=== PATIENT | female | born 1945 | race Caucasian/White ===

== ENCOUNTER 2017-08-01 18:38 | Inpatient (IN) | payer OTHER ==
[~2017-08-01] VITALS: Ht 165.1 cm; Wt 71.7 kg
[~2017-08-01 18:38] MED LIST: AMARYL4 MG PO; AMLODIPINE BESY10 MG PO; ASPIRIN EC325 M1 PO; ASPIRIN325 PO; ATORVASTATIN CA40 MG PO; BIAXIN 500 MG500 M1 PO; BLOOD PRESSURE MED; BUTALB-ACETAMI1 EACH PO; COZAAR 50 MG TA50 M1 PO; CRESTOR10 MG PO; DOCUSATE SODIU100 MG PO; ENOXAPARIN40 MG/0.1 SUBQ; FENOFIBRATE160 MG PO; FEVERALL650 MG RECTAL; FIORICET 50-301 EACH PO; FLORANEX TABLE1 EACH PO; GABAPENTIN 100100 MG PO; GLIPIZIDE 10 MG10 MG PO; GLUCOTROL5 MG PO; HUMALOG100 UNIT/1 SUBQ; JANUMET 50-1,01 EACH PO; LEVEMIR SQ; LEVEMIR100 UNIT/1 SUBQ; LIPITOR20 MG PO; LISINOPRIL20 MG PO; LOPRESSOR25 PO; LOSARTAN POTASS50 MG PO; LOVAZA1000 MG PO; LOW DOSE ASPIRI81 M1 PO; MAGNESIUM400 MG PO; MAGOX 400400 MG PO; MINOCYCLINE HC100 MG PO; MOM PO; NORCO 5-325 TA1 EACH PO; NOVOLOG100 UNIT/1 SC; NOVOLOG100 UNIT/1 SQ; OMEPRAZOLE40 MG PO; PAXIL10 MG PO; PEPCID AC20 M1 PO; PERSANTINE75 MG PO; PLAVIX 75 MG TA75 M1 PO; PROTONIX40 M1 PO; Protonix IV PUSH; SELENIUM100 MCG PO; TRADJENTA5 MG PO; TRILIPIX135 MG PO; TYLENOL325 MG PO; VANCOCIN 250 M250 M1 PO; VITAMIN D3400 UNIT PO; ZETIA10 MG PO
--- NOTE | 2017-08-01 19:00 | NUR ---
RETURNED FROM CT SCAN VIA STRETCHER, VENTILATOR IN USE W/ R.T. ASSIST. PLACED IN E.D. ROOM 1. REPORTED TO ONCOMING LENO PUTNAM.
[2017-08-01 19:01] LABS: ABSOLUTE BASOPHILS 0.1 thou/uL (0.0-0.2); ABSOLUTE EOSINOPHILS 0.3 thou/uL (0.0-0.7); ABSOLUTE LYMPHOCYTES 6.2 thou/uL (0.8-5.3); ABSOLUTE MONOCYTES 0.8 thou/uL (0.0-1.2); ABSOLUTE NEUTROPHILS 4.7 thou/uL (1.6-8.1); BASOPHILS 0.6 %; EOSINOPHILS 2.2 %; HEMATOCRIT 38.3 % (37.0-47.0); HEMOGLOBIN 12.3 gm/dL (12.0-15.0); LYMPHOCYTES 51.5 %; MCV 87.4 fL (80.0-100.0); MONOCYTES 6.6 %; NUCLEATED RBCS 0 /100WBC; PLATELET COUNT* 339 thou/uL (150-400); POLYS 39.1 %; RBC 4.38 mil/uL (4.20-5.00); RDW-CV 13.6 % (10.5-14.5); WBC 12.1 thou/uL (4.0-11.0)
[2017-08-01 19:02] LABS: POC CREATININE 1.6 mg/dL (0.6-1.3); POC HEMOGLOBIN 12.9 g/dL (12.0-17.0); POC POTASSIUM 3.5 mmol/L (3.5-4.9)
[2017-08-01 19:12] LABS: ANION GAP 21 mmol/L (7-16); APTT 42.1 Seconds (25.0-31.3); BUN 30 mg/dL (7-18); CHLORIDE 103 mmol/L (98-107); CO2 16 mmol/L (21-32); CREATININE 1.9 mg/dL (0.6-1.3); GLUCOSE 138 mg/dL (70-99); INR 1.3; POTASSIUM 3.5 mmol/L (3.5-5.1); PROTIME 12.3 Seconds (9.20-11.50); SODIUM 140 mmol/L (136-145)
[2017-08-01 19:26] LABS: URINE BILIRUBIN NEGATIVE (Negative); URINE BLOOD 2+ (Negative); URINE CLARITY CLEAR; URINE COLOR YELLOW; URINE GLUCOSE-RANDOM TRACE (Negative); URINE KETONES NEGATIVE (Negative); URINE LEUKOCYTES-REFLEX NEGATIVE (Negative); URINE NITRITE-REFLEX NEGATIVE (Negative); URINE PROTEIN 3+ (Negative); URINE SPECIFIC GRAVITY >= 1.030 (1.005-1.030); URINE UROBILINOGEN 0.2 E.U./dl (0.2-1.0)
[2017-08-01 19:31] LABS: ALBUMIN 3.3 g/dL (3.4-5.0); ALKALINE PHOSPHATASE 59 U/L (46-116); CK-MB MASS 1.4 ng/mL (<0.5-3.6); NT-PRO BRAIN NAT PEPTIDE 98 pg/mL (<300); SGOT 25 U/L (15-37); SGPT 20 U/L (30-65); TOTAL BILIRUBIN 0.3 mg/dL (<0.1-1.0); TOTAL PROTEIN 7.2 g/dL (6.4-8.2); TROPONIN-I LEVEL <0.06 ng/mL (<0.06)
[2017-08-01 19:36] LABS: AMORPHOUS URATES Few /LPF (None Seen); BACTERIA-REFLEX 1-9 Few /HPF (None Seen); CASTS None Seen /LPF (None Seen); SQUAMOUS 0-3 Few /LPF (0-3); URINE RBC 0-2 Rare /HPF (0-2); URINE WBC-REFLEX None Seen /HPF (0-5)
[2017-08-01 19:53] LABS: BE -6.6 mmol/L (-2 to +3); HCO3 18.5 mmol/L (22.0-26.0); PCO2 35.8 mmHg (35.0-45.0); pH 7.331 (7.340-7.450)
[2017-08-01 19:54] LABS: PO2 290.2 mmHg (75.0-100.0)
--- NOTE | 2017-08-01 19:59 | NUR ---
Casey from ICU here to care for pt, care turned over to her.
--- NOTE | 2017-08-01 21:26 | NUR ---
CONSULTED TO PLACE IJ CENTRAL LINE FOR PT IN ED BED 1. ORDER AND CONSENT NOTED PROCEDURE WELL RISK FOR DVT INFECTION DISCUSSED WTIH (DPOA) WHO VOICED UNDERSTANDING AND AGREED. RIGHT IJ IDENTIFIED AND NOTED TO BE WIDLEY PATENT. TRIPLE LUMAN CENTRAL ROBERTO CATHATER PLACED PER HOSPITAL POLICY INCLUDING MAX BARRIER PRECAUTIONS. LINE ADVANCED TO 18CM AND SECURED. DRESSING APPLIED. STAT CHEST X-RAY ORDERED TO CONFIRM PLACEMENT.
[2017-08-01 21:33] VITALS: BP 110/66
[2017-08-01 22:00] VITALS: BP 121/60
[2017-08-01 23:00] VITALS: BP 136/66
[2017-08-02] VITALS (23 sets, daily range): BP systolic 102–130; BP diastolic 48–65
--- NOTE | 2017-08-02 01:04 | NUR ---
PT. ADMITTED TO ROOM 1 AT 2130 ON VENTILATOR. PROPOFOL GTT FOR SEDATION, RESTRAINTS APPLIED. PT'S SON AND AT BEDSIDE UPON ADMISSION ASSESSMENT. PT. HAS HX CVA X4. CTA HEAD DONE BEFORE ADMISSION TO ICU. CENTRAL LINE PLACED IN ED. OG PLACED, KUB CONFIRMED PLACEMENT. PT AROUSABLE, RESPONDS TO PAIN. SINUS RHYTHM. WILL CONTINUE TO MONITOR.
[2017-08-02] MEDS ORDERED: SYNTHROID25 MCG PO (01:20)
[2017-08-02] MEDS ORDERED: TUMS PO (01:22)
[2017-08-02] MEDS ORDERED: PRAVACHOL20 MG PO (01:24)
[2017-08-02] MEDS ORDERED: ASPIR 8181 MG PO (01:26)
[2017-08-02] MEDS ORDERED: NEURONTIN600 MG PO (01:27)
[2017-08-02] MEDS ORDERED: PRADAXA75 MG PO (01:28)
[2017-08-02 04:03] LABS: HEMATOCRIT 31.9 % (37.0-47.0); HEMOGLOBIN 10.6 gm/dL (12.0-15.0); MCH 28.5 pg (26.0-34.0); MCHC 33.4 g/dL (28.0-37.0); MCV 85.4 fL (80.0-100.0); MPV 9.4 fl. (7.2-11.1); RBC 3.73 mil/uL (4.20-5.00); RDW-CV 13.5 % (10.5-14.5); WBC 10.8 thou/uL (4.0-11.0)
[2017-08-02 04:32] LABS: ALBUMIN 2.9 g/dL (3.4-5.0); CALCIUM 8.7 mg/dL (8.5-10.1); CREATININE 1.9 mg/dL (0.6-1.3); POTASSIUM 3.9 mmol/L (3.5-5.1); TOTAL BILIRUBIN 0.3 mg/dL (<0.1-1.0); TOTAL PROTEIN 6.4 g/dL (6.4-8.2)
[2017-08-02 04:39] LABS: CHOLESTEROL 154 mg/dL (<200); HDL CHOLESTEROL 21 mg/dL (>40); LDL CHOLESTEROL 74 mg/dL (<100); TC:HDL 7.3 Ratio (Not establshd); TRIGLYCERIDE 296 mg/dL (<150); VLDL 59 mg/dL (<40)
[2017-08-02 05:07] LABS: SERUM ASSESSMENT Clear
--- NOTE | 2017-08-02 05:15 | NUR ---
PT. REMAINS SEDATED ON VENTILATOR. NO CHANGE IN STATUS. VITAL SIGNS STABLE, RESTRAINTS REMAIN IN PLACE. CHEST XRAY DONE THIS A.M. PULMONARY AND NEUROLOGY CONSULTED TODAY. NS INFUSING @ 120. PT'S SON HAS BEEN IN WAITING ROOM/AT BEDSIDE THROUGHOUT SHIFT. MRI/MRA ORDERED TODAY. WILL CONTINUE TO MONITOR.
[2017-08-02 08:42] LABS: BE -4.9 mmol/L (-2 to +3); HCO3 17.9 mmol/L (22.0-26.0); PCO2 26.6 mmHg (35.0-45.0); PO2 150.5 mmHg (75.0-100.0); pH 7.446 (7.340-7.450)
--- NOTE | 2017-08-02 14:20 | NUR ---
PT ADMITTED LAST EVENING AFTER BEING FOUND UNRESPONSIVE AT HOME. PT REMAINS SEDATED ON THE VENT. SPOKE WITH PT'S DTR AND ERIK CHAKRABORTY AT BEDSIDE. PT LIVES WITH HER AND HER SON. DUE TO HER MULTIPLE STROKES, THERE IS SOMEONE WITH HER ALL THE TIME. SHE CAN WALK WITH ASSISTANCE BUT THEY DO NOT LET HER UP BY HERSELF SHE FALLS AT HOME. DTR SAID THAT PT'S AND SON TAKE VERY GOOD CARE OF HER AT HOME. COPY OF ADVANCE DIRECTIVE ON [facility], PALMER IS PT'S DPOA. SHE CONFIRMS THAT FOR NOW, PATIENT IS A FULL CODE. PALMER SAID THAT SHE HAS WORKED IN RESP THERAPY IN THE PAST SO UNDERSTANDS WHAT IS CURRENTLY GOING ON WITH PATIENT. DISCUSSED ROLE OF CASE MGT, WILL CONTINUE TO FOLLOW. PALMER LEIVA DPOA [phone]
--- NOTE | 2017-08-02 16:19 | 2DMMODE ---
[place] [address] 2 D/M-MODE ECHOCARDIOGRAM Name: RICK HEREDIA Room: [address] IN [facility]#: [id number] Admission: 08/01/17 Attend Phys: Nicholas Alcaraz, Discharge: Date of : 47 Date of Service: 08/02/17 1619 Report #: [id number] THIS REPORT FOR: //name// APPROVED REPORT Study performed: 08/02/2017 10:27:10 EXAM: Comprehensive 2D, Doppler, and color-flow Echocardiogram Patient Location: In-Patient Room #: [facility] Status: routine BSA: 1.80 HR: 67 bpm BP: 108/51 mmHg Rhythm: NSR Other Information Study Quality: Good Indications CVA/TIA Echo Enhancing Agent Indication: Rule out Shunt Agent(s) / Amount(s) Used: Agitated Saline 10 cc 2D Dimensions LVEF(%): 80.40 (>50%) IVSd: 13.02 (7-11mm) LVOT Diam: 18.67 (18-24mm) LVDd: 31.39 mm PWd: 12.50 (7-11mm) Ascending Ao: 30.48 (22-36mm) LVDs: 16.41 (25-40mm) Aortic Root: 30.41 mm Zeng's LVEF: 80.40 % Volumes Left Atrial Volume (Systole) LA ESV Index: 22.50 mL/m2 Aortic Valve AoV Peak Timothy.: 1.36 m/s AO Peak Gr.: 7.43 mmHg LVOT Max P.38 mmHg AO Mean Gr.: 4.35 mmHg LVOT Mean P.62 mmHg LVOT Max V: 0.92 m/s AO V2 VTI: 27.52 cm LVOT Mean V: 0.58 m/[place] [address] 2 D/M-MODE ECHOCARDIOGRAM Name: RICK HEREDIA Room: [address] IN .R.#: [id number] Admission: 08/01/17 Attend Phys: Nicholas Alcaraz, Discharge: Date of : 47 Date of Service: 08/02/17 1619 Report #: [id number] MARIA ALEJANDRA (VTI): 1.73 cm2 LVOT V1 VTI: 17.36 cm Mitral Valve E/A Ratio: 0.74 MV Decel. Time: 397.81 ms MV E Max Timothy.: 0.61 m/s MV PHT: 115.37 ms MVA (PHT): 1.91 cm2 TDI E/Lateral E': 10.17 E/Medial E': 8.71 Medial E' Timothy.: 0.07 m/s Lateral E' Timothy.: 0.06 m/s Pulmonary Valve PV Peak Timothy.: 1.03 m/s PV Peak Gr.: 4.27 mmHg Left Ventricle The left ventricle is normal size. There is normal LV segmental wall motion. There is normal left ventricular wall thickness. Left ventricular systolic function is normal. The left ventricular ejection fraction is within the normal range. LVEF is 60%. Grade I - abnormal relaxation pattern. Right Ventricle The right ventricle is normal size. The right ventricular systolic function is normal. Atria The left atrium size is normal. Interatrial septum is intact without evidence of ASD or PFO. The right atrium size is normal. Aortic Valve Mild aortic valve sclerosis. No aortic regurgitation is present. No hemodynamically significant valvular aortic stenosis. Mitral Valve There is mitral annular calcification. Mitral valve leaflets are calcified. There is no mitral valve regurgitation noted. No evidence of mitral valve stenosis. Tricuspid Valve The tricuspid valve is normal in structure. There is no tricuspid valve regurgitation [place] [address] 2 D/M-MODE ECHOCARDIOGRAM Name: RICK HEREDIA Room: [address] IN M.R.#: [id number] Admission: 08/01/17 Attend Phys: Nicholas Alcaraz, Discharge: Date of : 47 Date of Service: 08/02/17 1619 Report #: [id number] The pulmonary valve is normal in structure. There is no pulmonic valvular regurgitation. Great Vessels The aortic root is normal in size. IVC is normal in size and collapses with >50% inspiration Pericardium There is no pericardial effusion. <Conclusion> The left ventricle is normal size. There is normal left ventricular wall thickness. Left ventricular systolic function is normal. The left ventricular ejection fraction is within the normal range. LVEF is 60%. Grade I - abnormal relaxation pattern. The right ventricle is normal size. The left atrium size is normal. Mild aortic valve sclerosis. No aortic regurgitation is present. No hemodynamically significant valvular aortic stenosis. There is mitral annular calcification. Mitral valve leaflets are calcified. There is no mitral valve regurgitation noted. No evidence of mitral valve stenosis. The tricuspid valve is normal in structure. IVC is normal in size and collapses with >50% inspiration There is no pericardial effusion. There is normal LV segmental wall motion. <ELECTRONICALLY SIGNED> By: Jez Chiu MD, FACC 08/02/17 1619 1619 161 Jez Chiu MD, FACC /INF
[2017-08-03] VITALS (20 sets, daily range): BP systolic 95–162; BP diastolic 45–81
--- NOTE | 2017-08-03 06:07 | NUR ---
PT. REMAINS ON PROPOFOL GTT, RESTLESS AT TIMES, ATIVAN GIVEN ONCE PER PRN ORDER. CHEST XRAY DONE THIS A.M. SINUS RHYTHM ON MONITOR. COMPLETE BED BATH DONE. PT. APPEARS TO BE RESTING COMFORTABLY AT THIS TIME, WILL CONTINUE TO MONITOR.
[2017-08-03 06:11] LABS: BE -5.6 mmol/L (-2 to +3); HCO3 18.8 mmol/L (22.0-26.0); PCO2 32.5 mmHg (35.0-45.0); pH 7.381 (7.340-7.450)
[2017-08-03 06:14] LABS: PO2 135.6 mmHg (75.0-100.0)
--- NOTE | 2017-08-03 06:15 | EKG ---
[place] [address] ELECTROCARDIOGRAM REPORT Name: RICK HEREDIA Room: [address] ADM IN M.R.#: [id number] Admission: 08/01/17 Attend Phys: Nicholas Alcaraz MD Discharge: Date of : 47 Report #: [id number] THIS REPORT FOR: //name// [facility] ED Test Date: 2017-08-01 Test Time: 19:23:52 Pat Name: RICK HEREDIA Department: Room: [facility] Gender: F Injection Maintenance Technician: GL : 1945 Requested By: Hector Rico Order Number: [id number] MD: Alan Anne Measurements Intervals [place] Rate: 91 P: 74 TX: 225 QRS: 66 QRSD: 96 T: 63 QT: 383 QTc: 472 Interpretive Statements Sinus rhythm Prolonged TX interval Anteroseptal infarct age indeterminate possible Compared to ECG 08/16/2015 08:55:30 First degree AV block now present Electronically Signed On 08-03-2017 6:15:43 [employer]IT [employer]ITY POLICE OFFICER by Alan Anne [email or web address] <ELECTRONICALLY SIGNED> By: Alan Anne MD, FACC 08/03/17 0615 22 22 Alan Anne MD, FAC /EPI
--- NOTE | 2017-08-03 07:16 | CON ---
[address] [address] CONSULTATION Name: RICK HEREDIA Room: [address] ADM IN M.R.#: [id number] Admission: 08/01/17 Attend Phys: Nicholas Alcaraz MD Discharge: Date of : 47 Report #: [id number] THIS REPORT FOR: //name// CC: Nicholas Salazar DO DATE OF SERVICE: 08/02/2017 PULMONARY CONSULTATION ATTENDING PHYSICIAN: Nicholas Alcaraz MD She is in bed 1. She was admitted late yesterday afternoon. INDICATION FOR CONSULTATION: Acute respiratory failure, change in mental status. HISTORY OF PRESENT ILLNESS: The patient is a 72-year-old female, a nonsmoker, nondrinker, who was seen in the Emergency Room Department, was intubated, was unable to give any history, so regular followup with him after the afternoon and after the MRI scan is done and see what further stroke or anatomic abnormalities that were seen on CT head and CT angio of the head. It appeared she had a left frontal, left frontoparietal decreased perfusion and stroke. There was not an exact bleed. I do not think she was given any lytic therapy. The rest of her history was given by her son who was at the bedside today and she states she is a nonsmoker, nondrinker. Has not had any episode like this before in her life. ALLERGIES: CONTRAST DYE, PENICILLIN, SULFA, TAPE AND PROCHLORPERAZINE FROM COMPAZINE. OUTPATIENT MEDICATIONS: Included amlodipine 10 mg daily, clopidogrel bisulphate, Plavix 75 mg daily, Persantin 75 mg t.i.d., ezetimibe 10 mg daily, fenofibrate 160 mg daily, gabapentin 300 mg p.o. t.i.d., Humalog insulin 10 units subQ at bedtime and then 10 units subQ b.i.d. for meals and then 20 units subQ for dinner, lisinopril 20 mg, Zestril 40 mg daily, magnesium oxide 400 mg daily, Vancocin was started for previous possible C. diff diarrhea. OTHER PAST MEDICAL HISTORY: She has had a tonsillectomy, hemorrhoidectomy surgery, hypertension, hyperlipidemia, CVA with aphasia, also diabetes and hiatal hernia. FAMILY HISTORY: Negative for [place] [address] CONSULTATION Name: RICK HEREDIA Room: [address]#: [id number] Admission: 08/01/17 Attend Phys: Nicholas Alcaraz MD Discharge: Date of : 47 Report #: [id number] SOCIAL HISTORY: She is a nonsmoker, nondrinker. PHYSICAL EXAMINATION: GENERAL: This is a dysarthric 72-year-old female, in no acute distress. She was intubated on the ventilator. She is not responsive on very minimal sedation of Versed. She has a poor gag reflex at least at this time. VITAL SIGNS: Blood pressure is 117/57 left arm. No pressors, heart rate 64, respirations 14, backup rate of 14, saturation on 35 is 98% on the ventilator. She is 5 feet 6 inches tall, weight 71 kilograms or 155 pounds, BMI is 26. HEENT: Pupils are midpoint, sluggishly reactive, but they are reactive, very minimal response to tactile stimulus. NECK: Supple without nodes. CHEST: Clear, without wheeze or rhonchi. CARDIOVASCULAR: Regular rate and rhythm without murmur, gallop or rub. ABDOMEN: Soft, without masses or megaly. EXTREMITIES: Without cyanosis, clubbing or edema. NEUROLOGIC: No withdrawal to tactile stimuli. LABORATORY DATA: Today, hemoglobin is 10.6, white count is 10,800, platelets are 271,000. Absolute lymphocytes are 6.2%. Sodium is 134, potassium is 3.9, chloride is 102, BUN is 33, creatinine is 1.9. Previous creatinine was 1.9 yesterday. Albumin is 2.9. Blood sugars have ranged between 150 and 224, AST is normal at 21, ALT is low normal at 18, alk phos is 52. ABGs this morning on 40%, assist control of 14,600 and PEEP of 5 shows a pO2 of 150, pH of 7.44, pCO2 is 26, bicarb is 18 and a sat of 97%. Chest x-ray shows bibasilar atelectasis, not much that we need to check on for that during today and tomorrow. Lines are intact. IMPRESSION: 1. Altered mental status, probably new due to his new stroke or an extension of old stroke in the left frontotemporal parietal area. 2. Acute respiratory failure, altered mental status. PLAN: We will see how she does with the current medication therapy. We will wait for the MRI this afternoon and see if there is any improvement. We could try a T-tube trial either tomorrow or and see how her mental status comes around. I told her son it is somewhat questionable whether she will wake up enough to start doing spontaneous breathing trials and then see where we proceed from there. Prognosis somewhat guarded. We will see what we can do in the meantime to help her out. [address] [address] CONSULTATION Name: RICK HEREDIA Room: [address] ADM IN M.R.#: [id number] Admission: 08/01/17 Attend Phys: Nicholas Alcaraz MD Discharge: Date of : 47 Report #: [id number] Thanks again for allowing us to participate in this lady's care, 34-minute critical care consult. <ELECTRONICALLY SIGNED> By: Cassandra Avila MD 08/03/17 0716 1137 [id number] Guardado MD /nt
--- NOTE | 2017-08-03 07:32 | NUR ---
ASSUMED CARE OF PATIENT AFTER RECEIVING BEDSIDE REPORT. ASSESSMENT COMPLETED, VSS. PATIENT RESPONSIVE TO VOICE AND TOUCH. PATIENT ON PROPOFOL GTT BUT STILL RESPONSIVE. PATIENT DID HAVE SOME RESTLESSNESS SO PROPOFOL WAS TITRATED UP CONSERVATIVELY. NO APPARANT PAIN. CODE STATUS TO BE ADDRESSED WITH FAMILY. VENT WEANING TRIAL TO BE DONE TODAY. RANCH HAND SUPERVISOR IN PLACE, SINUS RHYTHM NOTED. BED ALARM ON. CALL LIGHT WITHIN REACH, USE REINFORCED. RESTRAINTS IN PLACE. WILL CONTINUE TO MONITOR.
[2017-08-03 12:16] LABS: BE -6.6 mmol/L (-2 to +3); HCO3 17.4 mmol/L (22.0-26.0); PCO2 29.3 mmHg (35.0-45.0); pH 7.391 (7.340-7.450)
[2017-08-03 12:20] LABS: PO2 130.4 mmHg (75.0-100.0)
[2017-08-03 18:48] LABS: BE -6.1 mmol/L (-2 to +3); HCO3 17.7 mmol/L (22.0-26.0); PCO2 29.2 mmHg (35.0-45.0)
[2017-08-03 18:51] LABS: PO2 132.1 mmHg (75.0-100.0)
--- NOTE | 2017-08-03 18:53 | NUR ---
PATIENT RESTED IN BED WELL THROUGHOUT SHIFT. PATIENT EXTUBATED TODAY AFTER SUCCESSFUL WEANING TRIAL. PATIENT STILL NOT TALKING MUCH BUT ABLE TO GIVE ONE WORD ANSWERS. PATIENT UNRESTRAINED. PATIENT ABLE TO DO ACTIVE ROM WHEN ENCOURAGED. WILL GIVE BEDSIDE REPORT TO ONCOMING SHIFT.
[2017-08-04] VITALS (18 sets, daily range): BP systolic 125–167; BP diastolic 45–90
[2017-08-04 04:42] LABS: ABSOLUTE BASOPHILS 0.1 thou/uL (0.0-0.2); ABSOLUTE LYMPHOCYTES 2.8 thou/uL (0.8-5.3); ABSOLUTE MONOCYTES 1.1 thou/uL (0.0-1.2); ABSOLUTE NEUTROPHILS 6.7 thou/uL (1.6-8.1); BASOPHILS 0.5 %; EOSINOPHILS 0.1 %; HEMATOCRIT 28.8 % (37.0-47.0); HEMOGLOBIN 9.6 gm/dL (12.0-15.0); MCH 28.1 pg (26.0-34.0); MCHC 33.2 g/dL (28.0-37.0); MCV 84.5 fL (80.0-100.0); MONOCYTES 10.7 %; MPV 9.7 fl. (7.2-11.1); NUCLEATED RBCS 0 /100WBC; PLATELET COUNT* 237 thou/uL (150-400); POLYS 62.7 %; RBC 3.41 mil/uL (4.20-5.00); RDW-CV 13.9 % (10.5-14.5); WBC 10.7 thou/uL (4.0-11.0)
[2017-08-04 05:06] LABS: ALBUMIN 2.8 g/dL (3.4-5.0); CALCIUM 8.3 mg/dL (8.5-10.1); CREATININE 1.5 mg/dL (0.6-1.3); POTASSIUM 3.5 mmol/L (3.5-5.1); TOTAL BILIRUBIN 0.5 mg/dL (<0.1-1.0); TOTAL PROTEIN 6.5 g/dL (6.4-8.2)
--- NOTE | 2017-08-04 05:46 | NUR ---
PATIENT SLOWLY PROGRESSIGN TOWARDS GOALS. HEMODYNAMICALLY STABLE NO ACUTE CHANGES OVER NIGHT. PT ABLE TO FORMULATE SOME WORDS. SCHEDULED SWALLOW STUDY TODAY. RECIEVED ORAL CARE AND Q2H TURNS THROUGH THE SHIFT. WILL CONTINUE TO MONITOR CLOSELY. BED TO LOWEST POSITION.
--- NOTE | 2017-08-04 07:25 | NUR ---
ASSUMED CARE OF PATIENT AFTER RECEIVING BEDSIDE REPORT. ASSESSMENT COMPLETED, VSS. PATIENT ABLE TO VERBALLY COMMUNICATE BETTER TODAY THAN YESTERDAY. PATIENT ABLE TO COMMUNICATE NEEDS BUT NOT ORIENTED. PATIENT RESTING COMFORTABLY IN BED. ROUTE SALES DELIVERY DRIVERS SUPERVISOR IN PLACE, SINUS RHYTHM NOTED. PATIENT GOAL TO TITRATE OFF OF OXYGEN. PATIENT DENIES COMPLAINTS AND CONCERNS AT THIS TIME. BED ALARM ON. CALL LIGHT WTIHIN REACH, USE REINFORCED. WILL CONTINUE TO MONITOR.
--- NOTE | 2017-08-04 11:00 | NUR ---
SPOKE WITH SON MONA AT THE BEDSIDE. MONA LIVES WITH HIS PARENTS, HE AND HIS FATHER PROVIDE 24 HOUR CARE/SUPERVISION FOR PATIENT. SHE IS NEVER LEFT ALONE, MONA SAID IF HE ISN'T THERE THEN PT'S CAN PROVIDE THE ASSISTANCE THAT SHE NEEDS. PER MONA, SHE HAS NO DIFFICULTY IN SWALLOWING OR EATING, SHE CAN WALK BUT THEY DON'T LET HER UP ALONE SHE HAS FALLEN. SHE HAS A WALK-IN SHOWER, NEEDS SOME ASSIST WITH BATHING AND DRESSING. MONA SAID THEY PLAN ON TAKING PT HOME AT DISCHARGE. DISCUSSED ROLE OF CASE MGT, WILL CONTINUE TO FOLLOW.
--- NOTE | 2017-08-04 17:48 | NUR ---
PATIENT DID WELL THROUGHOUT SHIFT. PATIENT SUCCESSFULLY TITRATED OFF OF OXYGEN. PATIENT BECAME ANXIOUS LATER IN THE SHIFT, PRN ATIVAN ORDERED PER DR. GRAFF. PATIENT MORE APHASIC THAN BASELINE PER SON. PATIENT ABLE TO TOLERATE WORKING WITH THERAPIES BUT FAILED SWALLOW STUDY, PATIENT REMAINS NPO AT THIS TIME. BEDSIDE REPORT TO BE GIVEN TO ONCOMING SHIFT.
[2017-08-05] VITALS (11 sets, daily range): BP systolic 118–173; BP diastolic 52–88
[2017-08-05 05:17] LABS: ABSOLUTE BASOPHILS 0.1 thou/uL (0.0-0.2); ABSOLUTE EOSINOPHILS 0.1 thou/uL (0.0-0.7); ABSOLUTE LYMPHOCYTES 2.4 thou/uL (0.8-5.3); ABSOLUTE MONOCYTES 0.8 thou/uL (0.0-1.2); ABSOLUTE NEUTROPHILS 4.3 thou/uL (1.6-8.1); BASOPHILS 0.9 %; EOSINOPHILS 1.5 %; HEMATOCRIT 30.2 % (37.0-47.0); LYMPHOCYTES 31.6 %; MCHC 32.9 g/dL (28.0-37.0); MCV 85.1 fL (80.0-100.0); MONOCYTES 9.9 %; MPV 9.8 fl. (7.2-11.1); NUCLEATED RBCS 0 /100WBC; PLATELET COUNT* 246 thou/uL (150-400); POLYS 56.1 %; RBC 3.55 mil/uL (4.20-5.00); RDW-CV 13.7 % (10.5-14.5); WBC 7.7 thou/uL (4.0-11.0)
[2017-08-05 05:46] LABS: ALBUMIN 2.9 g/dL (3.4-5.0); CALCIUM 9.1 mg/dL (8.5-10.1); CREATININE 1.3 mg/dL (0.6-1.3); MAGNESIUM 1.6 mg/dL (1.8-2.4); POTASSIUM 3.3 mmol/L (3.5-5.1); TOTAL BILIRUBIN 0.5 mg/dL (<0.1-1.0); TOTAL PROTEIN 6.9 g/dL (6.4-8.2)
--- NOTE | 2017-08-05 18:32 | NUR ---
ASSUMED CARE OF PT 1800. PT VITALS ARE STABLE. SUPERVISOR ADVERTISING DISPATCH CLERKS IN PLACE. PT CALM AND COOPERATIVE WITH CALL LIGHT AND PERSONAL BELONGINGS WITHIN REACH. FALL PRECAUTIONS IN PLACE. SEIZURE PRECAUTIONS IN PLACE. FAMILY MEMBER AT BEDSIDE.
--- NOTE | 2017-08-05 19:20 | NUR ---
I ASSUMED CARE OF THE PATIENT AT 0700. SHE IS ALERT AND ORIENTED X2 AND IS ON BEDREST. SHE HAS FLUIDS GOING IN A RIGHT IJ AT 50/HR. BED IS IN THE LOW LOCKED POSITION AND CALL LIGHT IS IN REACH. HOURLY ROUNDING WAS DONE AND PATIENT NEEDS WERE MET. PAIN WAS MANAGED WITH PRN MEDICATIONS. SHE HAS RIGHT SIDED WEAKNESS AND WAS TURNED EVERY 2 HOURS. SON WAS AT THE BEDSIDE MOST OF THE DAY. PATIENT HAD 1400 CC OUTPUT. THERE IS A HEALING PRESSURE ULCER ON THE UPPER LEFT BUTTOCK. SPEECH THERAPY DID ANOTHER SWALLOW STUDY TODAY AND SHE HAS BEEN PLACED ON A REGULAR DIET WITH NECTER THICK LIQUIDS. BLOOD SUGARS WERE CONSISTANTLY OVER 200 AND MODERATE SCALE WAS INITIATED. TPN IS STILL GOING AT 40/HR. PATIENT WAS DOWNGRADED TO TELE STATUS AT 0830 BUT A BED DID NOT OPEN UP UNTIL 1700. REPORT WAS CALLED TO SE[facility]. PATIENT MEDS WERE SENT UP WITH THE CHART.
[2017-08-06] VITALS: BP 128/55
[2017-08-06 04:00] VITALS: BP 133/63
--- NOTE | 2017-08-06 06:02 | NUR ---
PATIENT CONTINUES TOWARDS GOALS TX CONTINUES WITHOUT S/SX OF ADVERSE EFFECTS NOTED THE PATIENT EXPRESSIVE APHASIA CREATES FDIFFICULTY COMMUNICATING HOWEVER WITH SIMPLE YES NO Q&A NEEDS ARE EXPRESSED THE PATIENT APPEARS EXCESSIVELY TEARFUL AT SHIFT START RESPONDS WELL TO WORDS OF REASSURANCE AND COMFORT TOUCH SAFETY INTERVENTIONS CONTINUE SEIZURE PADS ARE IN PLACE REPORT TO BE GIVEN TO ONCOMING RN
[2017-08-06 08:00] VITALS: BP 1550/76
--- NOTE | 2017-08-06 09:00 | NUR ---
ASSUMED PT. CARE AND RECEIVED REPORT AT 0730. PT. AWAKENS EASILY, ORIENTED TO SELF, IS NOT ALWAYS ABLE TO ANSWER QUESTIONS, BUT CAN DO YES/NO QUESTIONS GENERALLY. ON RA @ 95%. FULL ASSESSMENT COMPLETED, REFER TO CHARTING. PT ON TPN @ 80ML/HR, AND IVF'S @ 50ML/HR. PT. SON AT BEDSIDE AND ASSISTING WITH BREAKFAST. CALL LIGHT IN REACH, WILL CONTINUE WITH PLAN OF CARE.
[2017-08-06 14:15] VITALS: BP 149/74
[2017-08-06 16:00] VITALS: BP 146/66
[2017-08-06 20:00] VITALS: BP 132/57
--- NOTE | 2017-08-06 20:02 | NUR ---
PT. STABLE THROUGH OUT SHIFT. ABLE TO FEED SELF LUNCH WITH SIMPLE FINGER FOODS. APPETITE REMAINS POOR WITH <50% OF ANY MEALS EATEN TODAY. SHE IS INTAKING FLUID CONSISTANTLY WITH NECTAR THICK LIQUIDS. UP TO THE RECLINER THIS AFTERNOON WITH PHYSICAL THERAPY AND RN, HAS ENJOYED BEING UP AND STAYED THERE MOST OF THE EVENING WHILE VISITING WITH FAMILY. PT. HAS HAD FAMILY AT BEDSIDE THROUGH OUT THE DAY. HOURLY ROUNDING COMPLETED THROUGH OUT THE DAY FOR PT. SAFETY.
[2017-08-07 00:02] VITALS: BP 151/75
[2017-08-07 04:12] VITALS: BP 142/66
--- NOTE | 2017-08-07 06:07 | NUR ---
PATIENT CONTINUES TOWARDS GOALS OF DISCHARGE TO REHAB; ORDERS OBTAINED DURING SHIFT REGARDING CONTINUED HYPERGLYCEMIA DOCUMENTED TPN CONTINUES TO INFUSE ORDERED LINES AND FILTER CHANGED ORDERED IV ANTICONVULSANT ET IV ABX TOLERATED WELL WITHOUT S/SX OF ADVERSE EFFECT PATIENT CONTINUES TO BE WEAK ON THE R UPPER AND LOWER EXTREMITIY SHE APPEARED TO BE IN A BETTER MOOD NO TEARFUL EPISODES WERE NOTED SMILING AND LAUGHING NOTED EXPRESSIVE APHASIA CONTINUES TO IMPEDE ON ASSERTION OF ORIENTATION PATIENT PARTICIPATES AND COMMUNICATES WITH SIMPLE YES NO APPROPRIATLEY SAFETY INTERVENTIONS CONTINUE SEIZURE PRECAUTIONS CONTINUE REPORT TO BE GIVEN TO ONCOMING RN
--- NOTE | 2017-08-07 09:30 | NUR ---
ASSUMED PT. CARE AND RECEIVED REPORT AT 0730. PT A/O TO SELF/SITUATION, VSS, MONITOR ON TRACING SR 1ST. PT. DENIES CURRENT PAIN/SOB. ON RA. FULL ASSESSMENT COMPLETED, REFER TO CHARTING. DR. GRAFF ON UNIT, DISCUSSED PT. BLOOD SUGARS. OKAY TO DC TPN/IVF'S. PT. APPETITE THIS MORNING APPEARS IMPROVED, ATE ALMOST ALL BREAKFAST. AT BEDSIDE, CALL LIGHT IN REACH, WILL CONTINUE WITH PLAN OF CARE.
[2017-08-07 10:10] LABS: ABSOLUTE BASOPHILS 0.1 thou/uL (0.0-0.2); ABSOLUTE EOSINOPHILS 0.7 thou/uL (0.0-0.7); ABSOLUTE LYMPHOCYTES 2.1 thou/uL (0.8-5.3); ABSOLUTE MONOCYTES 0.9 thou/uL (0.0-1.2); ABSOLUTE NEUTROPHILS 5.7 thou/uL (1.6-8.1); BASOPHILS 1.1 %; EOSINOPHILS 7.6 %; HEMATOCRIT 30.3 % (37.0-47.0); LYMPHOCYTES 21.7 %; MCH 28.3 pg (26.0-34.0); MCHC 32.9 g/dL (28.0-37.0); MCV 86.2 fL (80.0-100.0); MONOCYTES 9.3 %; MPV 9.7 fl. (7.2-11.1); NUCLEATED RBCS 0 /100WBC; PLATELET COUNT* 245 thou/uL (150-400); POLYS 60.3 %; RBC 3.51 mil/uL (4.20-5.00); RDW-CV 13.7 % (10.5-14.5); WBC 9.4 thou/uL (4.0-11.0)
[2017-08-07 10:27] LABS: ALBUMIN 2.7 g/dL (3.4-5.0); CALCIUM 9.1 mg/dL (8.5-10.1); CREATININE 1.3 mg/dL (0.6-1.3); POTASSIUM 4.3 mmol/L (3.5-5.1); TOTAL BILIRUBIN 0.4 mg/dL (<0.1-1.0); TOTAL PROTEIN 6.4 g/dL (6.4-8.2)
[2017-08-07 12:34] VITALS: BP 136/61
[2017-08-07 16:46] VITALS: BP 133/62
--- NOTE | 2017-08-07 19:25 | NUR ---
PT. APPETITE GREATLY IMPROVED, EATING GOOD PORTIONS OF ALL MEALS. UP IN THE RECLINER MOST OF THE DAY, AT BEDSIDE THROUGH OUT. ANTICIPATE DC TOMORROW TO EITHER REHAB OR HOME WITH HH.
[2017-08-07 20:00] VITALS: BP 140/60
--- NOTE | 2017-08-07 20:00 | NUR ---
RECEIVED REPORT AND ASSUMED CARE OF PT, ASSESSMENT COMPLETED. PT SITTING UP IN RECLINER WITH FEET ELEVATED, AT BEDSIDE. PT IS PLEASANT BUT APHASIC. RT ARM FLACCID, HAS A SOFT ROLL IN HER HAND TO KEEP IT OPEN. TELEMETRY ON SHOWING SR. TAKING NECTAR THICK LIQ WITHOUT COUGHING OR CHOKING. WILL CONT TO MONITOR AND ASSIST NEEDED.
[2017-08-08] VITALS: BP 135/49
[2017-08-08 04:00] VITALS: BP 124/59
--- NOTE | 2017-08-08 07:00 | NUR ---
SLEPT WELL TONIGHT. REPOSITIONED Q 2HR. BUTTOCKS SL RED DUE TO SITTING IN RECLINER, BARRIER CREAM APPLIED. TOOK MEDS CRUSHED AND IN APPLESAUCE WITHOUT COUGHING OR CHOKING. NO CHANGE IN ASSESSMENT. ADVANCING TOWARDS DISCHARGE GOALS. HOURLY ROUNDING OBSERVED.
[2017-08-08 08:00] VITALS: BP 129/50
--- NOTE | 2017-08-08 08:05 | NUR ---
ASSUMED PT. CARE AND RECEIVED REPORT AT 0730. PT. SLEEPING PEACEFULLY IN BED, ON RA, VSS, MONITOR ON TRACING SR. ASSESSMENT COMPLETED, REFER TO CHARTING. PT. OPENS EYES AND SMILES WHEN ADDRESSED, BUT FALLS RIGHT BACK TO SLEEP. PT. POSITIONED ON SIDE, RIGHT ARM ELEVATED ON PILLOW. CALL LIGHT IN REACH, FALL PRECUATIONS IN PLACE. WILL CONTINUE WITH PLAN OF CARE.
--- NOTE | 2017-08-08 10:29 | NUR ---
Rehab consult placed. If Pt does not qualify for rehab, family declines skilled and wants to take Pt home with HH. Following.
[2017-08-08 16:01] VITALS: BP 127/53
--- NOTE | 2017-08-08 17:24 | NUR ---
RECEIVED CONSULT FOR POSSIBLE REHAB ADMISSION. CONSULT HAS BEEN ACKNOWLEDGED BY COUNTER CONTROL OPERATOR AND DR. ROYAL. PT ADMITTED WITH SEIZURE, ENCEPHALOPATHY AND PROBABLE NEW STROKE. PT HAS HX OF CVA'S AND IS APHASIC. PLOF WAS HOME WITH FAMILY PT WAS ABLE TO AMBULATE AND DID RECEIVE SOME ASSIST FROM SPOUSE AND SON WITH ADL'S. PT HAS BEEN EVALUATED BY PT/OT/ST AND WOULD BENEFIT FROM ACUTE REHAB TO BE ABLE TO RETURN HOME TO [facility] WITH FAMILY. HAVE REQUESTED INSURANCE AUTHORIZATION. NOTIFIED CM, WONG OF ACCEPTANCE TO REHAB PENDING INSURANCE AUTH. THANK YOU FOR THIS REFERRAL.
--- NOTE | 2017-08-08 19:15 | NUR ---
PT. STABLE THROUGH OUT SHIFT. UP TO CHAIR X 2. RAMIREZ REMOVED AND PT. ABLE TO VOID WITHOUT DIFFICULTY. CENTRAL LINE DRESSING CHANGED PER PROTOCOL. PT. APPETITE APPEARS TO BE BACK AT BASELINE, EATING 100% OF MEALS. CONTINUES ON NECTAR THICK LIQUIDS PER SPEECH EVAL TODAY. ANTICIPATE DC TO REHAB TOMORROW. FAMILY AT BEDSIDE THROUGH OUT THE DAY. HOURLY ROUNDING COMPLETED FOR PT. SAFETY.
[2017-08-08 20:00] VITALS: BP 129/57
--- NOTE | 2017-08-08 20:00 | NUR ---
RECEIVED REPORT AND ASSUMED CARE OF PT, ASSESSMENT COMPLETED. ASSISTED PT FROM CHAIR TO BED. TRANSFERS IMPROVED FROM PREVIOUS NIGHT BUT REMAINS WEAK AND UNABLE TO MOVE WITHOUT VERBAL CUES. INCONT OF URINE. WILL CONT TO MONITOR AND ASSIST NEEDED.
[2017-08-09 04:00] VITALS: BP 99/53
--- NOTE | 2017-08-09 06:30 | NUR ---
SLEPT WELL TONIGHT. TURNED Q 2HR FROM SIDE TO SIDE. TOOK MEDS WHOLE IN APPLESAUCE, DID POCKET SOME INTO LT CHEEK. INFORMED TO SWALLOW AND PT DID SO WASHING DOWN PILLS. NO CHOKING OR COUGHING WITH FLUIDS OR MEDS. INCONT OF URINE. HAD SM LOOSE STOOL WITH MOM GIVEN. NO COMPLAINTS VOICED. ADVANCING TOWARDS GOALS. HOURLY ROUNDING OBSERVED.
--- NOTE | 2017-08-09 07:30 | NUR ---
ASSUMED CARE OF PT ASSESSED AND DOCUMENTED. PT IS A MED SURG PT. PT IS AFEBRILE. SHE DID STATE HER FIRST NAME AND PART OF HER BIRTHDAY. PT IS APHASIC. PT IS ON ROOM AIR. LUNGS ARE DIMINISHED. PT HAS REDNESS NOTED ON HER COCCYX. SHE HAS BEEN TURNED AND REPOSITIONED. CALLED PHARMACY AND ORDERED NEW INSULLIN FROM . PT HAS WEAKNESS ON HER R LEG AND R ARM IS FLACID. BED IS IN LOW POSITIOIN. CALL LIGHT IS IN REACH. .
[2017-08-09 08:00] VITALS: BP 151/68
--- NOTE | 2017-08-09 11:29 | NUR ---
Nutrition follow up: Admit for CVA. TPN dc'd. Pt now on Regular diet/nectar thick liquids. ST following. Nursing reports pt is eating 100% at meals. Varied wt this admit 149-167#, current wt 158# close to admit wt 157#. BL nonpitting edema present. Noted pt is likely to discharge to Med Rehab today. RD will continue to follow for adequate intake on Med Rehab and make additional recs as appropriate.
--- NOTE | 2017-08-09 12:18 | NUR ---
Insurance authorized Pt's rehab stay, anticipate Pt to dc to rehab today around 2pm. Faxed dc orders. Updated Pt's nurse and son in room.
[2017-08-09] MEDS ORDERED: KEPPRA 500 MG500 M1 PO (12:43)
[2017-08-09] MEDS ORDERED: LEVAQUIN 250 M250 MG PO (12:44)
[2017-08-09 12:54] VITALS: BP 151/68
--- NOTE | 2017-08-09 14:06 | NUR ---
PT D/C'D TO REHAB. CALLED IN REPORT TO LENO RANDALL. ALL BELONGINGS PACKED UP AND LEFT WITH PT ACCOMPANIED BY STAFF AND PT'S SON.
--- NOTE | 2017-08-11 11:51 | CON ---
[address] [address] CONSULTATION Name: CORINNE HEREDIAANN Room: [address] IN M.R.#: [id number] Admission: 08/01/17 Attend Phys: Nicholas Alcaraz MD Discharge: 08/09/17 Date of : 47 Report #: [id number] THIS REPORT FOR: //name// CC: Nicholas Aguilar [facility] DATE OF SERVICE: 08/02/2017 HISTORY OF PRESENT ILLNESS: This is a 72-year-old female patient who was admitted with an episode she had. History is taken from the son on multiple occasions. This patient has a large record in the hospital and I reviewed those records. This patient has been mostly managed at [facility]. Apparently, this patient had numerous strokes. Reviewing the record, it would appear that I had seen this patient. Those records indicate that I had suspected vasculitis at that time or at least had suggested that we workup this patient for vasculitis, but the family has decided that they do not want any further workup and they were pretty adamant about it and I did not proceed with that workup. It looks like she is having more stroke or she has developed seizure. From the son, it will look that she has episodes where she is having transient symptoms on the right side. This is going on for some time. REVIEW OF SYSTEMS: Indicate that she does have intracranial disease. She does have a vascular risk factor. She usually goes to [facility]. From all indication, it looks like she has either recurrent TIA or seizures. Her quality of life is poor. She is hemiplegic. She needs 24-hour care. She is aphasic. Son tells me at one time she has told that she wanted to be no code, but I told him presently she is full code. PAST MEDICAL HISTORY: Positive for recurrent stroke. FAMILY HISTORY: Negative for any seizure activity. SOCIAL HISTORY: She requires full 24-hour supervision. PHYSICAL EXAMINATION: Pretty limited. She is sedated, but even when I lower the sedation she is completely hemiplegic on right side. She has very little speech even at her baseline. She does not follow any commands. I had a long and multiple talks with the patient's family. I told them that instructions to me was that they do not want any further workup. If they want to stick with the same protocol, that is fine with me. If they want to pursue further, then I will suggest doing an MRI, which was ordered by Dr. Salazar and I will add an MRA at the same time. I frankly discussed with them that taking her down for MRI is not a risk-free thing. It can have significant risk and they must be willing to accept that risk. I discussed with them that if they want her to be no code blue, they need to tell the nurses [place] [address] CONSULTATION Name: RICK HEREDIA Room: [address] IN ..#: [id number] Admission: 08/01/17 Attend Phys: Nicholas Alcaraz MD Discharge: 08/09/17 Date of : 47 Report #: [id number] be a no code blue and the nurses need to get that ordered from the admitting physician. I talked to them to decide if they want her to be no code blue before or after the MRI or what time they want to. My feeling is that this patient may have had another stroke or may be having recurrent seizure. If MRI does not show any new stroke, then we can treat presumptively with anticonvulsant and see if she becomes better. If it shows stroke, then family need to decide if they want to be aggressive in this patient or want her to be hospice. Thank you very much for this referral. More than 50 minutes of time was spent taking care of this patient today and majority of that time was spent counseling this patient's family and coordinating her care. The patient was discussed with the nurses and was also discussed with admitting physician. <ELECTRONICALLY SIGNED> By: Dashawn Rivera MD 08/11/17 1151 [id number] Rivera MD /nt
--- NOTE | 2017-08-11 11:51 | EEG ---
[address] [address] EEG STUDY REPORT Name: RICK HEREDIA Room: [address] IN M.R.#: [id number] Admission: 08/01/17 Attend Phys: Nicholas Alcaraz MD Discharge: 08/09/17 Date of : 47 Report #: [id number] THIS REPORT FOR: //name// CC: Nicholas Aguilar [facility] DATE OF SERVICE: 08/02/2017 INDICATION FOR PROCEDURE: This patient is being evaluated for altered mental status. INTERPRETATION: EEG was done by placing the electrodes by standard 10-20 system of electrode placement. Background activity is only about 4-5 Hz, is a very poorly formed background activity. Photic stimulation is unremarkable. Throughout the record, no active epileptiform activity was noticed. IMPRESSION: This is a severely abnormal electroencephalogram because it is disorganized and poorly formed. That is a nonspecific abnormality, which can occur with encephalopathy, effect of psychotropic medication, dementia, etc. Clinical correlation is recommended. <ELECTRONICALLY SIGNED> By: Dashawn Rivera MD 08/11/17 1151 [id number] Rivera MD /nt
--- NOTE | 2017-08-30 14:42 | CON ---
[address] [address] CONSULTATION Name: CORINNE HEREDIAANN Room: [address] IN M.R.#: [id number] Admission: 08/01/17 Attend Phys: Nicholas Alcaraz MD Discharge: 08/09/17 Date of : 47 Report #: [id number] THIS REPORT FOR: //name// CC: Nicholas Aguilar [facility] REASON FOR CONSULTATION: Evaluation and recommendations regarding post-acute rehabilitation in a female who was admitted on 08/01 with diagnosis of seizure, encephalopathy, aspiration pneumonia, history of previous multiple cerebrovascular accidents with ongoing aphasia, dysphagia and acute respiratory failure, status post intubation and ventilation. She is also diabetic. She has chronic kidney disease as well. She has been followed by Neurology. She does have needs in physical and occupational therapy as well as speech and language pathology. She is moderate assistance of 1-2 with occupational therapies, moderate to maximum assistance with physical therapies. She is currently on nectar thick liquids and a regular diet being followed by Speech Language Pathology as well for her aphasia. She is known to this service from previous acute inpatient rehabilitative stay a couple of years ago. EEG by Dr. Rivera was done and was severely abnormal. She is encephalopathic and does have some possible dementia. She is cared for at the home setting at a minimum level of assistance with her and her children. ALLERGIES: CONTRAST DYE, PENICILLIN, SULFA AND TAPE. MEDICAL PROBLEMS: Include previous history of stroke; diabetes, uncontrolled; hiatal hernia; tonsillectomy; hemorrhoidectomy; hypertension; hyperlipidemia; history of cerebrovascular accident with aphasia and dysphagia. FAMILY HISTORY: Stroke. SOCIAL HISTORY: No tobacco, alcohol or illicit drug use. REVIEW OF SYSTEMS: Unable to obtain at this time due to the patient's current state. PHYSICAL EXAMINATION: GENERAL: Alert, no apparent distress. VITAL SIGNS: Reviewed and are stable. HEENT: Head atraumatic, normocephalic. Pupils equal, round, reactive. ABDOMEN: Soft, nontender, nondistended. NEUROLOGIC: Cranial nerves 2-12 are grossly intact. SKIN: Warm and dry. ASSESSMENT: Status post recent seizure, encephalopathy, acute aspiration pneumonia, history of cerebrovascular accident with aphasia, dysphagia and increased residuals due to current medical state. Acute respiratory failure, uncontrolled diabetes [place] 2[place] [address] CONSULTATION Name: RICK HEREDIA Room: [address] IN [facility].#: [id number] Admission: 08/01/17 Attend Phys: Nicholas Alcaraz MD Discharge: 08/09/17 Date of : 47 Report #: [id number] PLAN: Recommend acute inpatient rehabilitation with physical and occupational therapy to get the patient back to her baseline. She also needs some family training. Speech and Language Pathology will continue to work with the patient, both from a swallow standpoint as well as memory, cognition and aphasia standpoint. Will require acute daily medical care as well. We will follow along with the patient during her acute medical stay. <ELECTRONICALLY SIGNED> By: Anne Rush DO 08/30/17 1442 [id number] [id number] Rush DO /nt
== END 2017-08-09 14:02 | DRG 208 ==
LOC: M.ERS 18:38 → M.ICU 20:01 → M.TBA-ER 20:01 → M.ICU 21:34 → M.2W 08-05 18:05
PROVIDERS: Emergency Medicine; Emergency Medicine Emergency Medical Services; Internal Medicine Pulmonary Disease; ADMIT Internal Medicine
PROC: 0BH17EZ Insertion of Endotracheal Airway into Trachea, Via Natural or Artificial Opening (ICD-10-PCS; principal; 2017-08-01)
PROC: 5A1945Z Respiratory Ventilation, 24-96 Consecutive Hours (ICD-10-PCS; principal; 2017-08-01)
PROC: 4A00X4Z Measurement of Central Nervous Electrical Activity, External Approach (ICD-10-PCS; 2017-08-02)
PROC: B24BZZ4 Ultrasonography of Heart with Aorta, Transesophageal (ICD-10-PCS; 2017-08-02)
DX: J69.0 Pneumonitis due to inhalation of food and vomit (principal); J96.00 Acute respiratory failure, unspecified whether with hypoxia or hypercapnia; G93.40 Encephalopathy, unspecified; N17.9 Acute kidney failure, unspecified; G81.91 Hemiplegia, unspecified affecting right dominant side; E78.5 Hyperlipidemia, unspecified; R56.9 Unspecified convulsions; E11.22 Type 2 diabetes mellitus with diabetic chronic kidney disease; E11.65 Type 2 diabetes mellitus with hyperglycemia; I12.9 Hypertensive chronic kidney disease with stage 1 through stage 4 chronic kidney disease, or unspecified chronic kidney disease; N18.9 Chronic kidney disease, unspecified; I69.320 Aphasia following cerebral infarction; Z79.02 Long term (current) use of antithrombotics/antiplatelets; Z79.4 Long term (current) use of insulin; Z79.899 Other long term (current) drug therapy; Z91.041 Radiographic dye allergy status; Z88.0 Allergy status to penicillin; Z88.2 Allergy status to sulfonamides; Z88.8 Allergy status to other drugs, medicaments and biological substances; Z91.048 Other nonmedicinal substance allergy status; Z82.3 Family history of stroke

== ENCOUNTER 2017-08-09 12:51 | Inpatient (IN) | payer OTHER ==
[~2017-08-09] VITALS: Ht 165.1 cm; Wt 68.5 kg
[~2017-08-09 12:51] MED LIST changes: +ASPIR 8181 MG PO; +KEPPRA 500 MG500 M1 PO; +LEVAQUIN 250 M250 MG PO; +NEURONTIN600 MG PO; +PRADAXA75 MG PO; +PRAVACHOL20 MG PO; +SYNTHROID25 MCG PO; +TUMS PO
[2017-08-09 15:00] VITALS: BP 108/55
--- NOTE | 2017-08-09 16:58 | NUR ---
ASSUMMED CARE OF PT ON ADMISSION TO UNIT AT 1415. PT OPENS EYES BUT VERY LETHARGIC, DOES FOLLOW SOME COMMANDS, SON STATES PT HAD JUST RECIEVED PAIN MEDICATION, PT DID BECOME MORE AWAKE SHIFT PROGRESSED, PT APHASIC BUT DID ANSWER WITH 1-2 WORDS AT TIMES, PT INCONTINENT OF LARGE AMOUNT OF URINE, PT TAKING NECTAR THICK LIQUIDS, SON USING SWABS TO MOISTEN PT MOUTH, SON INSTRUCTED THAT PT CAN NOT HAVE REGULAR WATER, SON STATES THAT SHE CAN TOLERATE WATER, SON AGAIN INSTRUCTED ON IMPORTANCE OF PT ONLY HAVING THICKENED LIQUIDS, PT TURNED EVERY 2 HOURS, SMALL RED AREAS NOTED ON SACRAL AREA, ESTELA CARE GIVEN BARRIER OINTMENT APPLIED, PT AND FAMILY ORINETED TO ROOM, QUESTIONS ANSWERED, ASSESSMENT COMPLETEM HOURLY ROUNDING DONE, WILL CONTINUE TO MONITER.
[2017-08-09 19:38] VITALS: BP 131/59
[2017-08-10 03:51] LABS: ABSOLUTE BASOPHILS 0.1 thou/uL (0.0-0.2); ABSOLUTE EOSINOPHILS 0.6 thou/uL (0.0-0.7); ABSOLUTE LYMPHOCYTES 3.3 thou/uL (0.8-5.3); ABSOLUTE NEUTROPHILS 4.5 thou/uL (1.6-8.1); BASOPHILS 0.9 %; EOSINOPHILS 6.1 %; HEMATOCRIT 29.4 % (37.0-47.0); HEMOGLOBIN 9.8 gm/dL (12.0-15.0); LYMPHOCYTES 35.1 %; MCH 28.6 pg (26.0-34.0); MCHC 33.3 g/dL (28.0-37.0); MCV 85.9 fL (80.0-100.0); MONOCYTES 10.1 %; MPV 9.4 fl. (7.2-11.1); NUCLEATED RBCS 0 /100WBC; PLATELET COUNT* 268 thou/uL (150-400); POLYS 47.8 %; RBC 3.43 mil/uL (4.20-5.00); RDW-CV 13.9 % (10.5-14.5); WBC 9.4 thou/uL (4.0-11.0)
--- NOTE | 2017-08-10 05:38 | NUR ---
ASSUMED PT CARE AT 1930. PT AWAKE AND ALERT, GIVES ONE WORD ANSWERS TO QUESTIONS. TAKES PILLS CRUSHED IN APPLESAUCE FOLLOWED BY NECTAR THICKENED LIQUIDS. DENIES PAIN. PT INCONTINENT OF BOWEL AND BLADDER X3 THIS SHIFT. TURNED Q2-3 OVERNIGHT. SMALL RED AREAS ON SACRAL AREA, BARRIER OINTMENT APPLIED FOLLOWING ESTELA CARE. SEIZURE PRECAUTIONS IN PLACE. HX OF MULTIPLE CVA'S. CALL LIGHT AND FREQUENTLY USED ITEMS WITHIN REACH. HOURLY ROUNDING IN PROGRESS, WILL CONTINUE TO MONITOR.
[2017-08-10 06:02] LABS: CREATININE 1.8 mg/dL (0.6-1.3); POTASSIUM 4.4 mmol/L (3.5-5.1)
[2017-08-10 08:41] VITALS: BP 129/57
--- NOTE | 2017-08-10 15:04 | NUR ---
Pt was seen d/t new admit to rehab consult. Pt was admitted for CVA. Pt was able to answer with one word answers. Pt reports an okay appetite. Pt was eating 100% prior to rehab admission per RN note. Pt reports tolerating the thickened liquids. Pt wt has been varied between 149#-167#. Pt currently 164#. Pt reports eating enough. Pt is currently on regular diet. Note pt DM II. RD talked to RN about switching diet to carb controlled d/t BG 116-407. Chart Reviewed. Low nutrition risk.
--- NOTE | 2017-08-10 15:26 | NUR ---
I have reviewed the documentation by JASEN ENGLISH from 08/10/17 to 08/10/17 and I concur with it. BILL LUGO
--- NOTE | 2017-08-10 15:55 | NUR ---
I have reviewed the documentation by JASEN ENGLISH from 08/10/17 to 08/10/17 and I concur with it. BILL LUGO
--- NOTE | 2017-08-10 16:10 | NUR ---
ASSUMED CARE AT 0730 PATIENT ALERT/APHASIC, MAKES BASIC NEEDS KNOWN, UP WITH MAX ASSIST OF ONE TO W/C. NO COMPLAINTS OF PAIN THIS SHIFT, PARTICIPATED IN ALL THERAPIES TODAY, TO DINING ROOM FOR MEALS. HOURLY ROUNDING COMPLETED, BED/CHAIR ALARMS IN PLACE, CALL LIGHT IN REACH, TURN 2Q WHILE IN BED.
--- NOTE | 2017-08-10 17:22 | NUR ---
SW met with pt to complete initial assessment and review team conference summary. Pt sleeping upon SW arrival. Pt opened eyes briefly but did not communicate with SW. SW called to speak with pt son and he did not answer, also, voicemail box was full. Plan to reteam. Pt lives at home with family care. Rehab goal to be able to return to baseline and for family training prior to dc. Apparently pt has RW but pt has refused to use RW. SW to continue to follow to assist with safe dc planning and follow up as necessary.
[2017-08-10 20:27] VITALS: BP 146/58
--- NOTE | 2017-08-11 01:35 | NUR ---
ASSUMED CARE @ 1939-08/10-TUE.AWAKE IN BED ON HER LEFT SIDE W/ HOB UP.SIDERAILS X4-PADDED.BED ALARM ALREADY ON @ 1939.PLACED ON HER Back w/HOB UP @ 2139 TO TAKE HS MEDS CRUSHED & MIXED W/ APPLE SAUCE FOLLOW W/ NECTAR THICK CRANBERRY JUICE.SEE POSITION CHANGE CHARTING.WEDGES PLACED FOR TURNING.HEELS OFF BED @ 2209.AWAKENED ONLY TO TURN.FLACCID-RUE/WEAK-RIGHT LE/APHASIA/W/ DYSPHAGIA. ON HOURLY ROUNDS.VEHICLE MODIFICATION TECHNICIAN DOING ODD HOUR ROUNDS.
--- NOTE | 2017-08-11 05:22 | NUR ---
SLEEPING SINCE -08/11-TUESDAY.INC URINE X2.URINE ACCIDENT X2.ESTELA CARE DONE X2.MOISTURE BARRIER CREAM APPLIED X2 TO PINK/RED BUTTOCKS.TOOK ALL APPLE SAUCE W/ NECTAR THICK CRANBERRY JUICE W/ HS MEDS.
[2017-08-11 07:51] VITALS: BP 149/63
--- NOTE | 2017-08-11 15:37 | NUR ---
I have reviewed the documentation by JASEN ENGLISH from 08/11/17 to 08/11/17 and I concur with it. BILL LUGO
--- NOTE | 2017-08-11 16:44 | NUR ---
ASSUMED CARE AT 0730 PATIENT ALERT/ORIENTED, RESISTANT TO THERAPY THIS AM, SON IN AND ENCOURAGED PATIENT, THERAPY WAS ABLE TO WORK WITH PATIENT, STILL RESISTANT, NEW MEDS STARTED THIS AFTERNOON, PAIN MED GIVEN THIS AM FOR GENERAL DISCOMFORT, UP WITH MAX OF ONE AND GAIT BELT TO W/C. HOURLY ROUNDING COMPLETED, BED/CHAIR ALARMS IN PLACE, TO DINING ROOM FOR MEALS. CALL LIGHT IN REACH. UPGRADED TO THIN LIQUIDS AND MEDS WHOLE IN APPLESAUCE WITH NO FURTHER COMPLICATIONS.
[2017-08-11 19:30] VITALS: BP 143/70
--- NOTE | 2017-08-12 01:01 | NUR ---
ASSUMED CARE @ 1919-08/11-THUIRS.AWAKE IN BED ON HER BACK W/HOB UP ALMOST 90 DEGREES. VISITING @ THIS TIME.PRADAXA-HOME MED WILL BE AVAILABLE ON TUESDAY-PER .HOSPITAL PHARMACY UNABLE TO GET PRADAXA.RUE UP ON A PILLOW.BED ALARM PUT ON @ 1919.SIDERAILS X4-PADDED.EDEMA-RIGHT FINGERS.HEELS OFF BED @ 1929.SEIZURE PRECAUTIONS.TAKES ALL MEDS WHOLE ONE @ A TIME W/ APPLE SAUCE FOLLOWED W APPLE JUICE @ 2099.NO SWALLOWING PROBLEM NOTED. PULL UPS OFF @ 2099.POSITIONONG WEDGES USED.SPEECH-STILL SLURRED.FLACCID-RUE. WEAK-RLE.SEE POSITION CHANGE CHARTING.ON HOURLY ROUNDS.
--- NOTE | 2017-08-12 05:15 | NUR ---
SLEEPING SINCE 2200.INC.URINE X1.URINE ACCIDENT X1.ESTELA CARE AFTER INC URINE & MOISTURE BARRIER CREAM APPLIED TO PINK/RED BUTTOCKS.TOOK ALL APPLE SAUCE W/HS MEDS W/ APPLE JUICE.AWAKENED ONLY TO TURN & TO CHECK IF INC.URINE.
[2017-08-12 07:30] VITALS: BP 133/63
--- NOTE | 2017-08-12 13:31 | NUR ---
I have reviewed the documentation by JASEN ENGLISH from 08/12/17 to 08/12/17 and I concur with it. BILL LUGO
--- NOTE | 2017-08-12 18:09 | NUR ---
ASSUMED CARE AT 0730. ALERT ORIENTED, PLEASANT COOPERATIVE. HX OF CVA RT. SIDE WEAKNESS. TRANSFERS WITH 1 PERSON G BELT GRAB BAR IN TOILET TO VOID AND HAVE BM. NEEDS ASSIST WITH HYGEINE AFTER BM BUT DOES HELP WITH CLOTHING ADJUSTMENTS. PARTICIPATING IN THERAPIES THROUGHOUT THE MORNING. DENIES PAIN OR REQUESTS. BED CHAIR ALARM FOR PT. SAFETY. FORGETFULL SAFETY CUES NEEDED.
--- NOTE | 2017-08-12 18:23 | NUR ---
FEEDS SELF WITH SET UP. NO DIFFICULTY TAKING MEDS USES APPLESAUCE TAKES THEM WHOLE. HERE THIS EVENING AT SUPPER.
[2017-08-12 19:50] VITALS: BP 146/68
--- NOTE | 2017-08-12 21:05 | NUR ---
SITTING UP IN W/C WATCHING TV. EXPRESSIVE APHASIA. MAKES NEEDS KNOWN WITH MULTIPLE ATTEMPTS. TRANSFERS FROM W/C TO TOILET WITH ASSIST OF 2, GAITBELT, STAND, PIVOT, LIFTING ASSIST. ESTELA CARE AND CLOTHING ADJUSTMENTS COMPLETED BY STAFF. TOOK MEDS WHOLE WATER WITH MILD DIFFICULTY. DENIES DISCOMFORT.
[2017-08-13 04:44] LABS: HEMATOCRIT 30.2 % (37.0-47.0); MCH 28.4 pg (26.0-34.0); MCHC 33.2 g/dL (28.0-37.0); MCV 85.5 fL (80.0-100.0); MPV 9.8 fl. (7.2-11.1); RBC 3.53 mil/uL (4.20-5.00); RDW-CV 13.5 % (10.5-14.5); WBC 8.7 thou/uL (4.0-11.0)
[2017-08-13 05:01] LABS: ALBUMIN 2.8 g/dL (3.4-5.0); CREATININE 1.5 mg/dL (0.6-1.3); MAGNESIUM 1.7 mg/dL (1.8-2.4); POTASSIUM 4.2 mmol/L (3.5-5.1); TOTAL BILIRUBIN 0.3 mg/dL (<0.1-1.0); TOTAL PROTEIN 5.7 g/dL (6.4-8.2)
--- NOTE | 2017-08-13 05:46 | NUR ---
RESTED QUIETLY IN BETWEEN TURNS. NO COMPLAINTS VOICED. HOURLY ROUNDING IN PROGRESS.
[2017-08-13 08:10] VITALS: BP 112/51
--- NOTE | 2017-08-13 17:50 | NUR ---
PT HAS PARTICIPATED WITH THERAPIES AND HAS CALLED FOR ASSIST WITH TRANSFERRS TO CHAIR AND TOILET. PT HAS EPISODE OF INC X1 WITH PERICARE GIVEN AND BARRIER CREAM APPLIED. PT APPROPIATE WITH RESPONCES BUT IS APHASIC AND ABLE TO MAKE MOST NEEDS KNOWN. PT TOLERATES MEALS IN DINNINGROOM AND IS REMINDED TO NOT POCKET FOODS AND TAKE DRINK AFTER EACH BITE. HERE NOW. PT PROGRESSES TOWARDS GOALS AND HOURLY ROUNDING CONTINUES.
[2017-08-13 19:55] VITALS: BP 123/63
--- NOTE | 2017-08-13 21:05 | NUR ---
AWAKENED FOR HS REASSESSMENT AND MED PASS. MALE FAMILY MEMBER AT BEDSIDE IN RECLINER AND IS STAYING THE NIGHT. TOOK MEDS WHOLE ONE AT A TIME WITH APPLESAUCE. DENIES PAIN. INCONTINENT OF URINE. ESTELA CARE PROVIDED. ASSISTED WITH REPOSITIONING. RIGHT ARM FLACCID AND ELEVATED ON A PILLOW. BOGGY HEELS ELEVATED ON A PILLOW.
--- NOTE | 2017-08-14 05:23 | NUR ---
RESTED QUIETLY IN BETWEEN TURNS. INCONTINENT OF URINE X ONE DURING THE NIGHT. ESTELA CARE PROVIDED. NO COMPLAINTS VOICED. HOURLY ROUNDING IN PROGRESS.
[2017-08-14 07:57] VITALS: BP 123/54
--- NOTE | 2017-08-14 16:51 | NUR ---
PT HAS BEEN UP TO W/C AND RESTED IN BED THIS AFTERNOON WITH AT SIDE. PT ALERT AND SEEMS TO UNDERSTAND SIMPLE CONVERSATIONS WITH GOOD HUMOR. PT TRANSFERRS WELL WITH 1 ASSIST TO W/C AND TOILET UNLESS TIRED. PT USUALLY CONTINENT WHEN UP BUT WAS INB OF B+B THIS AM WHEN GETTING UP AND HAD SECOND BM WHEN PLACED ON TOILET. PT ASSISTED WITH 75% OF DRESSING AND ADJUSTING CLOTHING AND CLEANSING. PT DENIES PAIN. PT PROGRESSES TOWARDS GOALS AND HOURLY ROUNDING CONTINUES.
--- NOTE | 2017-08-14 19:50 | NUR ---
RESTING QUIETLY IN BED. AT BEDSIDE. PT DENIES PAIN. DECLINED OFFER OF A SNACK. TOOK MEDS WHOLE ONE AT A TIME WITH APPLESAUCE.
[2017-08-14 20:13] VITALS: BP 125/52
--- NOTE | 2017-08-15 05:37 | NUR ---
RESTED QUIETLY. NO COMPLAINTS VOICED. INCONTINENT OF URINE X ONE. ESTELA CARE PROVIDED. HOURLY ROUNDING IN PROGRESS.
[2017-08-15 08:07] VITALS: BP 126/64
--- NOTE | 2017-08-15 16:53 | NUR ---
PTHAS PARTICIPATED WITH THERAPIES AND TRANSFERRS WITH MOD ASSIST OF 1 WITH GAITBELT.PT HAS REMAINED CONTINENT TODAY AND IS TAKEN TO THE BATHROOM Q2 HOURS. PRN FOR HEADACHES AND RT.ARM PAIN GIVEN WITH GOOD EFFECT. PT HAS LARGE BM THIS MORNING ON TOILET. PT TOLERATES MEALS AND FEEDS SELF AFTER TRAY SETUP AND ITEMS PLACED IN REACH.PT ON ACCUCHECKS AND SON HAS WRITTEN SLIDING SCALE AMOUNTS OUT PT IS GIVEN AT HOME FOR TO REVIEW TOMORROW WITH PAPER IN PROGRESS NOTES. PT IS PLESANT ANS ABLE TO EXPRESS NEEDS WITH QUEING. PT PROGRESSES TOWARDS GOALS AND HOURLY ROUNDING CONTINUES.
[2017-08-15 20:39] VITALS: BP 143/69
--- NOTE | 2017-08-16 04:58 | NUR ---
ASSUMED CARES AT 1930. PT ALERT. CVA WITH RIGHT HEMIPARESIS. TAKES PILLS WHOLE IN PUDDING. DENIED ANY PAIN. SHE IS A MOD ASSIST WITH GAIT BELT AND WALKER. STAND AND PIVOT. DID HAVE STOOL AND URINARY INCONTINENCE X 1. STAFF ASSISTED WITH ALL CARES. PT TURNED THROUGHOUT THE NIGHT. CALL LIGHT IN PLACE. BED ALARM ON.
[2017-08-16 07:30] VITALS: BP 137/66
[2017-08-16 08:00] VITALS: BP 137/66
--- NOTE | 2017-08-16 19:07 | NUR ---
HOURLY ROUNDING AND FALL PRECAUTIONS IN PLACE. PT WAS PLEASANT AND COOPERATIVE, TRANSFERS WITH MOD ASSIST OF ONE. PT CONTINUES TO TAKE HER PILLS ONE AT A TIME WITH PUDDING OR APPLESAUCE. NO ACUTE DISTRESS THIS SHIFT.
[2017-08-16 19:45] VITALS: BP 130/70
--- NOTE | 2017-08-16 20:00 | NUR ---
PT SITTING UP IN W/C WATCHING TV. SITTING ON COUCH NEXT TO PATIENT. PT DENIES PAIN. TOOK MEDS WHOLE ONE AT A TIME WITH APPLESAUCE FOLLOWED WITH WATER. PT HAS EXPRESSIVE APHASIA BUT COMMUNICATES NEEDS. PT COMMUNICATED THAT SHE WANTED TO FINISH THE PROGRAM SHE WAS WATCHING ON TV BEFORE GOING TO BED. INSISTED ON PT GOING TO BED. INITIALLY STATED HE WAS GOING TO PUT THE PATIENT TO BED STATING THAT HE DIDN'T WANT THIS NURSE OR THE PATIENT TO BE HURT. UNSUCCESSFUL IN CONVINCING THAT THIS NURSE WAS CAPABLE OF GETTING PATIENT READY AND TRANSFERRING HER TO THE BED. DID CONVINCE TO LET THIS NURSE ASSIST. TOOK PATIENT'S SHOES OFF AND THEN STOOD PATIENT UP IN FRONT OF THE W/C. PATIENT HAD REGULAR SOCKS ON. CONVINCED TO HAVE PATIENT SIT DOWN AND PUT HER SHOES BACK ON BEFORE TRANSFERRING PATIENT FROM THE W/C TO THE BED. HAS A REFILL OF PRADAXA AND ASKED THIS NURSE TO GIVEN THE PATIENT ONE. INFORMED THAT THIS NURSE WOULD NEED TO GET AN ORDER FROM THE TO REINSTATE THE PRADAXA ORDER. NODDED IN THE AFFIRMATIVE.
--- NOTE | 2017-08-17 05:28 | NUR ---
RESTED QUIETLY IN BETWEEN TURNS. NO COMPLAINTS VOICED. INCONTINENT OF URINE X ONE. ESTELA CARE GIVEN. HOURLY ROUNDING IN PROGRESS.
[2017-08-17 08:00] VITALS: BP 112/92
--- NOTE | 2017-08-17 10:53 | NUR ---
SW met with pt and pt son to review team conference summary. Plan for team to reassess pt length of stay during next team conference on Thursday 08/24. Pt and pt son in agreement with plan. No concerns or questions voiced at this time by pt or pt son. SW to continue to follow to assist with safe dc planning.
--- NOTE | 2017-08-17 18:08 | NUR ---
AM ASSESSMENT AND VITAL SIGNS COMPLETED DOCUMENTED. PT PLEASANT, COOPERATIVE AND MOTIVATED TO PROGRESS TOWARD DISCHARGE GOALS. FALL PRECAUTIONS AND HOURLY ROUNDING CONTINUE. FAMILY CONTINUES TO BE VERY INVOLVED IN HER CARE.
[2017-08-17 20:00] VITALS: BP 141/66
--- NOTE | 2017-08-18 05:16 | NUR ---
ASSUMED CARES AT 1920. PT ALERT. CALM AND COOPERATIVE. CVA WITH RIGHT HEMIPARESIS. APHASIA. DENIES ANY PAIN. TAKES PILLS WHOLE IN PUDDING/APPLESAUCE. SHE IS A MOD ASSIST WITH GAIT BELT AND WALKER. STAND AND PIVOT. ATTEMPTED TO HAVE PT VOID IN BATHROOM BUT WAS NOT ABLE TO. WAS INCONTINENT OF URINE DURING THE NIGHT. REDNESS TO BUTTOCKS. BARRIER CREAM APPLIED. PT TURNED THROUGHOUT THE NIGHT. CALL LIGHT IN REACH.
[2017-08-18 08:00] VITALS: BP 138/62
--- NOTE | 2017-08-18 18:30 | NUR ---
pt has participated with therapies and transferrs with assist of 1 to w/c and bathroom. pt denies pain today. pt voids when transferred to toilet,no bm today. pt alert and can follow directions. pt has aphasia but can make needs known.pt continues to progress towards goals and hourly rounding continues.
[2017-08-18 20:00] VITALS: BP 149/73
--- NOTE | 2017-08-19 05:08 | NUR ---
ASSUMED PT CARE AT 1930. PT ALERT, CALM AND COOPERATIVE WITH CARES. S/P CVA WITH RIGHT HEMIPARESIS. PT HAS APHASIA BUT CAN MAKE NEEDS KNOWN. PT DENIES PAIN. TAKES PILLS WHOLE IN PUDDING WITHOUT DIFFICULTY. PT TRANSFERS TO BED WITH MOD ASSIST, GAIT BELT AND WALKER, STAND/PIVOT. PT INCONTINENT OF URINE X3 OVERNIGHT. BARRIER CREAM TO BUTTOCKS. PT TURNED THROUGHOUT THE NIGHT. CALL LIGHT WITHIN REACH. HOURLY ROUNDING IN PROGRESS, WILL CONTINUE TO MONITOR.
[2017-08-19 08:00] VITALS: BP 134/65
--- NOTE | 2017-08-19 16:25 | NUR ---
I have reviewed the documentation by JASEN ENGLISH from 08/19/17 to 08/19/17 and I concur with it. BILL LUGO
--- NOTE | 2017-08-19 17:00 | NUR ---
PT CARE ASSUMED AT 0730, ASSESSMENT AND VITAL SIGNS COMPLETED DOCUMENTED. PT HAS BEEN PLEASANT AND COOPERATIVE, PARTICIPATED IN ALL THERAPIES TODAY. FAMILY IS HERE FREQUENTLY AND ARE VERY SUPPORTIVE. PT CONTINUES TO MAKE PROGRESS. HOURLY ROUNDING AND FALL PRECAUTIONS IN PLACE.
--- NOTE | 2017-08-19 17:09 | NUR ---
HOPE TAXATION CONSULTANT HERE TO FIT PATIENT FOR AN AFO. PT TOLERATED WELL.
[2017-08-19 20:00] VITALS: BP 138/71
--- NOTE | 2017-08-20 02:21 | NUR ---
BEGAN CARE OF PT AT 1930, PT ALERT, ANSWERES QUESTIONS WITH ONE-TWO WORD RESPONSES, UP WITH GAIT BELT/WALKER FROM CHAIR TO BED, SLOW/STEADY GAIT, TOOK PILLS ONE AT A TIME-WHOLE WITH PUDDING, PT PROVIDED TOOTH BRUSH WITH TOOTH PASTE ON IT AND SHE WAS ABLE TO BRUSH HER OWN TEETH USING HER LEFT HAND, UNDRESSED PT FOR BEDTIME, LEFT BRIEF OFF DURING OVER NIGHT, Q2T'S IN PLACE, HOURLY ROUNDING IN PLACE, PT HAS BEEN DRY OVER NIGHT THUS FAR, BED ALARM ON WITH BED IN LOW LOCKED POSITION AND SEIZURE PADS IN PLACE, PT FREE FROM CRYING/GRIMACING OR C/O PAIN/SOA, VSS, WILL CONT TO MONITOR.
[2017-08-20 08:30] VITALS: BP 138/60
--- NOTE | 2017-08-20 13:57 | NUR ---
ASSUMED CARES OF PT AT 0700. PT IN BED, BED IN LOW AND LOCKED POSITION. FALL PRECAUTIONS IN PLACE. CALL BUTTON AND PERSONAL ITEMS IN PT REACH. PT A&O TO SELF, UNABLE TO STATE LAST NAME OR BIRTHDAY. COOPERATIVE, SMILING, EXPRESSIVE APHASIA PRESENT. HRRR PER AUSCULTATION, LUNGS CLEAR TO DIMINISHED, NO COUGH, OCC. BELCHING. PT INCONTINENT OF B/B, WEARS BRIEFS DURING DAY SHIFT. UP WITH ONE ASSIST/GAIT BELT/WALKER/WHEELCHAIR. VSS ON RA, AFEBRILE, PT DENIES PAIN. HOURLY ROUNDING AND ACCU CHECKS CONTINUE. RIGHT SIDED WEAKNESS R/T CVA. Q2 TURNS CONTINUE. MEDS TAKEN WELL 1-2 AT A TIME IN APPLESAUCE/JUSTUS. PUDDING. PT PARTICIPATING IN THERAPIES. PT TO DINING ROOM FOR MEALS. PT PROGRESSING TOWARDS GOAL. WILL CONTINUE TO MONITOR PT PROGRESS AND STATUS.
--- NOTE | 2017-08-20 19:27 | NUR ---
REPORT TO CHANGE MANAGEMENT CONSULTANT FOR CONTINUED CARES. PT REMAINS STABLE. WITH PT. PT PARTICIPATED IN ALL THERAPIES AND MEALS IN DINING ROOM. PT RESPONDS TO NURSE APPROPRIATELY BUT OFTEN UNINTELLIGABLE R/T EXPRESSIVE APHASIA/CVA. HOURLY ROUNDS, ACCU CHECKS AND Q2 TURNS COMPLETED.
[2017-08-20 20:00] VITALS: BP 141/59
--- NOTE | 2017-08-21 05:25 | NUR ---
ASSUMED CARES AT 1915. PT ALERT. PLEASANT AND COOPERATIVE. CVA WITH RIGHT HEMIPARESIS. APHASIA. TAKES PILLS WHOLE IN APPLESAUCE. DENIES ANY PAIN. SHE IS A MOD ASSIST WITH GAIT BELT AND WALKER. UP TO BATHROOM. WEARS PULLUPS. TURNED THROUGHOUT THE NIGHT. CALL LIGHT IN REACH AND BED ALARM ON.
[2017-08-21 07:30] VITALS: BP 142/67
--- NOTE | 2017-08-21 15:07 | NUR ---
ASSUMED CARE AT 0730. ALERT ORIENTED, PLEASANT COOPERATIVE. HX OF CVA RT. SIDE WEAKNESS. TRANSFERS WITH MOD ASSIST G BELT WALKER WITH CUES AND ENCOURAGEMENT. FEEDS SELF WITH SET UP. NO DIFFICULTY WITH SWALLOWING MEDS OR FOODS. HERE TODAY AFTER BREAKFAST ASSISTS ENCOURAGES PT. TO DO FOR HERSELF. DENIES PAIN OR REQUESTS. APHASIA DOESNT ALWAYS SEEM TO PROCESS QUESTIONS OR DIRECTION. BED CHAIR ALARM FOR PT. SAFETY. FORGETFULL. IMPULSIVE AT TIMES. SLEPT AFTER BATH UP IN RECLINER AT BEDSIDE AFTER LUNCH.
--- NOTE | 2017-08-21 18:07 | NUR ---
VOIDED AT [address] KRISHNAMURTHY SUPPER PER W/C. HERE VISITING.
[2017-08-21 20:00] VITALS: BP 127/70
[2017-08-22 04:42] LABS: HEMATOCRIT 30.5 % (37.0-47.0); HEMOGLOBIN 10.1 gm/dL (12.0-15.0); MCH 28.4 pg (26.0-34.0); MCHC 33.1 g/dL (28.0-37.0); MPV 9.5 fl. (7.2-11.1); RBC 3.55 mil/uL (4.20-5.00); RDW-CV 14.2 % (10.5-14.5); WBC 6.2 thou/uL (4.0-11.0)
[2017-08-22 04:56] LABS: ALBUMIN 2.9 g/dL (3.4-5.0); CALCIUM 8.7 mg/dL (8.5-10.1); MAGNESIUM 1.6 mg/dL (1.8-2.4); POTASSIUM 4.3 mmol/L (3.5-5.1); TOTAL BILIRUBIN 0.2 mg/dL (<0.1-1.0); TOTAL PROTEIN 5.8 g/dL (6.4-8.2)
--- NOTE | 2017-08-22 05:14 | NUR ---
ASSUMED CARES AT 1920. PT ALERT. UP IN W/C. CVA WITH RIGHT HEMIPARESIS. APHASIA. DENIES ANY PAIN. TAKES PILLS WHOLE IN PUDDING OR APPLESAUCE. SHE IS A MOD ASSIST WITH GAIT BELT AND WALKER. UP TO BATHROOM. RN ASSISTED WITH CARES. DID HAVE URINARY INCONTINENCE WELL. PT TURNED THROUGHOUT THE NIGHT. SLEPT WELL OTHERWISE. CALL LIGHT IN REACH. BED ALARM ON.
[2017-08-22 07:30] VITALS: BP 139/63
--- NOTE | 2017-08-22 14:27 | NUR ---
ASSUMED CARE AT 0730. ALERT TO SELF AND SITUATION BUT HAS APHASIA FROM CVA RT. SIDE WEAKNESS. WAS INCONTINENT X 1 THIS A.M. WHEN GETTING OUT OF BED PAD WAS WET. TRANSFERRED WITH ASSIST OF ONE G BELT CUES TO W/C FOR BREAKFAST. FEEDS SELF WITH SET UP APPETITE GOOD TAKES FLUIDS WELL IF GIVEN TO HER FREQUENTLY. UP TO BR X 1 AT 1125 VOIDED LARGE AMT. AND HAD LARGE SOFT FORMED BM. ASSISTANCE TO DO HYGEINE AFTER BM ALSO NEEDS SOME ASSIST FOR CLOTHING ADJUSTMENTS RT. SIDE WEAKNESS. BED CHAIR ALARM FOR PT. SAFETY. TAKES MEDS WITH WATER WITHOUT DIFFICULTY CUES. SON AND GRANDSON HERE VISITING THIS A.M. PARTICIPATING IN THERAPIES DENIES PAIN OR REQUESTS. HAD CXR WHICH WAS CLEAR. TO DR FOR MEALS PER W/C.
--- NOTE | 2017-08-22 18:50 | NUR ---
GAVE FLUIDS WHEN MAKING ROUNDS AND WITH MEALS TAKING THEM WELL WHEN OFFERED FREQUENTLY. BATHROOM EVERY 3-4 HRS. TO VOID HAS REMAINED CONTINENT BUT DOESNT INITIATE NEED FOR TOILETING. LABS WILL BE CHECKED IN A.M. TO EVALUATE NEED FOR IV FLUID. IN CHAIR WATCHING TV AFTER SUPPER.
[2017-08-22 20:00] VITALS: BP 147/74
[2017-08-23 04:19] LABS: CALCIUM 9.3 mg/dL (8.5-10.1); CREATININE 1.7 mg/dL (0.6-1.3); MAGNESIUM 1.6 mg/dL (1.8-2.4); POTASSIUM 4.2 mmol/L (3.5-5.1)
[2017-08-23 04:36] LABS: HEMATOCRIT 30.9 % (37.0-47.0); HEMOGLOBIN 10.3 gm/dL (12.0-15.0); MCH 28.6 pg (26.0-34.0); MCHC 33.2 g/dL (28.0-37.0); MCV 85.9 fL (80.0-100.0); MPV 9.8 fl. (7.2-11.1); RBC 3.6 mil/uL (4.20-5.00); WBC 5.9 thou/uL (4.0-11.0)
--- NOTE | 2017-08-23 05:05 | NUR ---
ASSUMED CARES AT 1915. PT ALERT. CVA WITH RIGHT HEMIPARESIS. APHASIA. TAKES PILLS WHOLE IN APPLESAUCE. OFFERED PT TO DRINK MORE. SHE IS A MOD ASSIST WITH GAIT BELT. STAND AND PIVOT TRANSFERS. WEARS PULLUPS. PT INCONTINENT OF URINE DURING THE NIGHT. RN ASSISTED WITH ALL CARES. BUTTOCKS RED. BARRIER CREAM APPLIED. PT TURNED THROUGHOUT THE NIGHT. CALL LIGHT IN REACH AND BED ALARM ON. SLEPT WELL OTHERWISE.
[2017-08-23 07:31] VITALS: BP 142/65
--- NOTE | 2017-08-23 15:29 | NUR ---
PT CARE ASSUMED THIS AM, ASSESSMENT AND VITAL SIGNS COMPLETED DOCUMENTED. PT HAS WORKED WITH PT, OT AND ST, COOPERATIVE AND PLEASANT WITH STAFF. EEG ORDERED BY DR MOREIRA AND COMPLETED THIS AFTERNOON. PT CONTINUES TO MAKE PROGRESS, IS ABLE TO TRANSFER WITH ASSIST OF ONE, GAIT BELT AND WALKER. PT ALSO FEEDS HERSELF ONCE HER TRAY IS SET UP FOR HER. FAMILY HERE TO VISIT THIS AFTERNOON. FALL PRECAUTIONS AND HOURLY ROUNDING CONTINUE. NO ACUTE DISTRESS THIS SHIFT.
[2017-08-23 21:37] VITALS: BP 136/61
--- NOTE | 2017-08-24 05:02 | NUR ---
ASSUMED PT CARE AT 1930. PT ALERT AND ORIENTED TO SELF. CVA WITH RIGHT HEMIPARESIS. APHASIA. TAKES PILLS WHOLE IN PUDDING. UP WITH MOD ASSIST, GAIT BELT, STAND/PIVOT. PT INCONTINENT OVERNIGHT. STAFF DOES ALL CARES. BARRIER CREAM TO REDNESS ON BUTTOCKS. PT TURNED THROUGHOUT NIGHT. CALL LIGHT AND FREQUENTLY USED ITEMS WITHIN REACH. HOURLY ROUNDING IN PROGRESS, WILL CONTINUE TO MONITOR.
[2017-08-24 08:30] VITALS: BP 148/64
--- NOTE | 2017-08-24 10:16 | NUR ---
Team conference held, SW called and spoke with pt son Erik at [phone] to review team conference summary. Plan for team to reteam on Tuesday and for pt to dc home with family care on Thursday 08/31 and HH services. SW discussed team reported pt needing mod to min assist with bed mobility and transfers, min assist with ambulating with FWW 20 to 35 feet and mod asist with 3 stairs, pt dependent with toileting and dressing, pt max to mod assist with bathing, and supervision with toilet transfer, grooming,and tub/shower transfer. Pt needing min assist with all cognition/speech tasks and HH ST recommended as well. SW scheduled family training with pt son for Tuesday at 9 am and son said he would be available until 1:40 pm. SW discussed HH services and pt son said that they have used several different HH agencies, most recently [facility]; to be arranged for dc. Pt son said that they have a quad cane at home and they also have a rolling walker that they have access to be able to provide to pt; HUY explained SW could order RW but pt son said that they would have one available for pt. Pt/son in agreement with plan. SW to continue to follow to assist with safe dc planning.
--- NOTE | 2017-08-24 18:18 | NUR ---
PT HAS PARTICIPATED WITH THERAPIES AND TRANSFERRS WITH ASSIST OF 1, GAITBELT AND WALKER. PT ALERT TO SELF AND IS ABLE TO MAKE NEEDS KNOWN BUT IS APHASIC. PT HAS BEEN CONTINENT OF BLADDER AND CALLS FOR ASSIST TO BATHROOM. PT ENCOURAGED TO DRINK PO FLUIDS. PT HAS C/O PAIN TO RT. WRIST AND SHOULDER THIS AFTERNOON,ARM ELEVATED ON PILLOW WITH FAIR RELIEF. PT TOLERATES MEALS AND EATS IN DINNINGROOM AND FEEDS SELF AFTER TRAY SET UP. PT PROGRESSES TOWARDS GOALS AND HOURLY ROUNDING CONTINUES.
[2017-08-24 20:00] VITALS: BP 118/49
--- NOTE | 2017-08-25 05:09 | NUR ---
ASSUMED PT CARE AT 1930. PT ALERT AND ORIENTED TO SELF. CVA WITH RIGHT HEMIPARESIS. APHASIA. TAKES PILLS WHOLE IN PUDDING ONE AT A TIME WITHOUT DIFFICULTY. PT INCONTINENT OVERNIGHT, STAFF DOES ALL CARES. BARRIER CREAM TO BUTTOCKS. PT TURNED THROUGHOUT NIGHT. CALL LIGHT AND FREQUENTLY USED ITEMS WITHIN REACH. HOURLY ROUNDING IN PROGRESS, WILL CONTINUE TO MONITOR.
[2017-08-25 07:30] VITALS: BP 149/61
--- NOTE | 2017-08-25 14:08 | NUR ---
ASSUMED CARE AT 0730. ALERT TO SELF AND PLACE. HX OF CVA RT. SIDE WEAKNESS. TRANSFERS WITH 1 ASSIST G BELT WALKER CUES FROM BED TO RECLINER THIS A.M. WAS INCONTINENT OF URINE WHEN TRANSFERRED THIS A.M. REQUIRING BED LINEN CHANGE. FEEDS SELF WITH SET UP TAKES MEDS WITHOUT DIFFICULTY WITH WATER. HAS WENT TO TOILET X 2 TODAY ONCE VOID AND LAST TIME LARGE BM. DENIES PAIN OR REQUESTS. BED CHAIR ALARM FOR PT. SAFETY. HAS PARTICIPATED IN THERAPIES THROUGHOUT THE DAY. SON HERE FOR FAMILY TRAINING WITH .P.T. THIS AFTERNOON. TO DR CHANEY W/C FOR MEALS. SEEMS MORE FATIGUED TODAY. APHASIA. PLEASANT AND COOPERATIVE.
[2017-08-25 19:58] VITALS: BP 144/65
--- NOTE | 2017-08-26 06:21 | NUR ---
ASSUMED CARES AT 1920. PT ALERT. PLEASANT. DENIES ANY PAIN. CVA WITH RIGHT HEMIPARESIS. RIGHT ARM FLACCID. RIGHT LEG WEAK. TOOK PILLS WHOLE WITHOUT ISSUES. SHE IS A MOD ASSIST WITH GAIT BELT AND WALKER. LOTS OF CUEING FOR PROPER TRANSFERS. UP TO BATHROOM. WHILE IN BED PT WAS FOUND INCONTINENT OF URINE EACH TIME SHE WAS TURNED. STAFF ASSISTED WITH ALL CARES. SLEPT OTHERWISE. CALL LIGHT IN REACH. BED ALARM ON.
[2017-08-26 08:06] VITALS: BP 147/80
--- NOTE | 2017-08-26 14:50 | NUR ---
HUY received information from pt insurance that inpatient rehab stay would be covered until Tuesday with need for explanation and reasoning for pt to need 2 more days and dc on Tuesday. HUY informed Dr Rush and Margaret. HUY called pt son Erik and discussed plan was for team to team Tuesday and pt to dc Tuesday as was discussed previously, however, SW discussed with son to be prepared in case plans changed and pt said he had already planned to be busy on Tuesday but that he would take his mother with him if he had to take her around town with him, however, Tuesday would be better for pt son if needed due to timing of his schedule on Tuesday; pt son hopeful Tuesday dc will still remain a possibility but was understanding of the situation. HUY faxed face sheet and H & P to [facility] for referral for HH services for whenever pt dc home. Final orders and med list to be sent at pt dc.
--- NOTE | 2017-08-26 16:15 | NUR ---
PT CARE ASSUMED AT 0730, ASSESSMENT AND VITAL SIGNS COMPLETED DOCUMENTED. PT WAS COOPERATIVE WITH THERAPISTS AND COMPLETED ALL THERAPY SESSIONS. APPETITE IS ALWAYS GOOD, BLOOD GLUCOSE LEVELS TREATED WITH SLIDING SCALE INSULIN. PT CONTINUES TO DENY PAIN, RESTING QUIETLY IN BED AT THIS TIME. FALL PRECAUTIONS AND HOURLY ROUNDING IN PLACE.
[2017-08-26 20:00] VITALS: BP 122/64
--- NOTE | 2017-08-27 05:30 | NUR ---
ASSUMED CARE OF PT AT 1900 ALERT UNABLE TO ASSESS ORIENTATION DUE TO GLOBAL APHAGIA. PT ASSISTED BACK TO BED WITH 2 ASSIST GAIT BELT AND WALKER. PT SLEPT THROUGH THE NIGHT. TURNED AND POSITIONED Q2H. INC OF URINE. WILL CONTINE PLAN OF CARE.
[2017-08-27 08:09] VITALS: BP 131/61
--- NOTE | 2017-08-27 15:56 | EEG ---
[address] [address] EEG STUDY REPORT Name: YANRICK Room: [address] IN M.R.#: [id number] Admission: 08/09/17 Attend Phys: Anne Rush DO Discharge: Date of : 47 Report #: [id number] THIS REPORT FOR: //name// CC: Jeff Rush DATE OF SERVICE: 08/23/2017 This patient is being evaluated for the possibility of seizure. EEG was done by placing the electrodes by standard 10-20 system of electrode placement. Both referential and sequential montages were used for recording. Background activity in this patient's EEG is about 5-6 Hz and 30 microvolts. It is a symmetrical activity. It is slow on both sides. The patient became drowsy that is associated with bilateral slowing and a few vertex sharp waves. Throughout the record, no active epileptiform activity was noted. IMPRESSION: This patient's EEG demonstrates intermixed slowing on both sides. That is a nonspecific abnormality, which can occur with encephalopathy, effect of psychotropic medication, dementia, bilateral flow, etc. No active epileptiform activity was noticed. Thank you very much for this referral. <ELECTRONICALLY SIGNED> By: Dashawn Rivera MD 08/27/17 1556 [id number] [id number] Rivera MD /nt
--- NOTE | 2017-08-27 18:04 | NUR ---
PT HAS PARTICIPATED WITH THERAPIES AND AMBULATES FROM RECLINER TO BAHTROOM WITH WALKER,GAITBELT AND MIN ASSIST OF 1 WITH QUEING FOR DIRECTION. PRN FOR GENERALIZED PAIN GIVEN THIS AM WITH GOOD EFFECT. PT CALLS AT TIMES FOR ASSIST TO BATHROOM AND HAS BEEN INC X2 IN BREIF TODAY.PT ALERT AND ABLE TO MAKE NEEDS KNOWN WITH QUESTIONS ASKED AND YES NO AND OK RESPONCES. PT FEEDS SELF AFTER TRAY SET UP AND ITEMS PLACED IN REACH.PT PROGRESSES TOWARDS GOALS AND HOURLY ROUNDING CONTINUES.
[2017-08-27 20:30] VITALS: BP 136/64
--- NOTE | 2017-08-28 05:04 | NUR ---
ASSUMED PT CARE AT 1930. PT ALERT AND ORIENTED TO SELF, PLEASANT AND COOPERATIVE WITH CARES. DENIES PAIN. CVA WITH RIGHT HEMIPARESIS. RIGHT ARM FLACCID. RIGHT LEG WEAKNESS. TAKES PILLS WHOLE ONE AT A TIME IN PUDDING. PT IS MOD ASSIST WITH GAIT BELT AND WALKER. PT INCONTINENT OF URINE EACH TIME SHE WAS TURNED. STAFF DOES ALL CARES. BARRIER CREAM APPLIED. PT SLEPT BETWEEN TURNS. CALL LIGHT WITHIN REACH. BED ALARM ON. HOURLY ROUNDING IN PROGRESS, WILL CONTINUE TO MONITOR.
[2017-08-28 07:45] VITALS: BP 125/63
--- NOTE | 2017-08-28 17:42 | NUR ---
HERE TODAY AND SITS WITH PT. PT TRANSFERRS WITH GAITBELT AND ASSIST OF 1 WITH MIN QUEING TO W/C OR COMMODE. PRN FOR RT. ARM PAIN GIVEN THIS EVENONG WITH GOOD EFFECT. PT ASSISTED TO COMMODE AND HAS LG BM AND VOIDS WELL AND REMAINED CONTINENT THIS AFTERNOON. PT ALERT AND ABLE TO GET POINT ACROSS WITH SINGLE WORDS AND YES NO QUESTIONS. PT RESTS IN RECLINER THIS AFTERNOON. PT PROGRESSES TOWARDS GOALS AND HOURLY ROUNDING CONTINUES.
[2017-08-28 20:13] VITALS: BP 124/58
--- NOTE | 2017-08-29 05:04 | NUR ---
ASSUMED PT CARE AT 1930. PT ALERT AND ORIENTED TO SELF, PLEASANT AND COOPERATIVE WITH CARES. DENIES PAIN. CVA WITH RIGHT HEMIPARESIS. RIGHT ARM FLACCID. RIGHT LEG WEAKNESS. TAKES PILLS WHOLE ONE AT A TIME IN PUDDING. PT IS MOD ASSIST WITH GAIT BELT AND WALKER. PT INCONTINENT OF URINE EACH TIME SHE WAS TURNED. STAFF DOES ALL CARES. BARRIER CREAM APPLIED. PT SLEPT BETWEEN TURNS. CALL LIGHT WITHIN REACH. BED ALARM ON FOR SAFETY. HOURLY ROUNDING IN PROGRESS, WILL CONTINUE TO MONITOR.
[2017-08-29 07:30] VITALS: BP 148/64
[2017-08-29 13:00] LABS: URINE BILIRUBIN NEGATIVE (Negative); URINE BLOOD NEGATIVE (Negative); URINE CLARITY CLEAR; URINE COLOR YELLOW; URINE GLUCOSE-RANDOM TRACE (Negative); URINE KETONES NEGATIVE (Negative); URINE LEUKOCYTES-REFLEX NEGATIVE (Negative); URINE NITRITE-REFLEX NEGATIVE (Negative); URINE PROTEIN NEGATIVE (Negative); URINE UROBILINOGEN 0.2 E.U./dl (0.2-1.0)
--- NOTE | 2017-08-29 16:18 | NUR ---
CM SPOKE TO THE PATIENT AND HER SON MONA TO DISCUSS ANY QUESTIONS OR CONCERNS THAT THEY MAY HAVE FOR TOMORROWS TEAM CONFRENCE MEETING. PATIENT HAS NO QUESTIONS OR CONCERNS AT THIS TIME. PATIENT'S SON INFORMS THAT HIS ONLY CONCERN IS IF THE PATIENT WILL BE ALLOWED TO REMAIN IN THE REHAB UNIT UNTIL TUESDAY. CM WILL REMAIN AVIALABLE TO ASSIST AND FOLLOW NEEDED.
[2017-08-29 20:14] VITALS: BP 147/58
--- NOTE | 2017-08-30 05:21 | NUR ---
ASSUMED PT CARE AT 1930. PT ALERT AND ORIENTED TO SELF, VISITING WITH . PT CRYING SAYING THAT SHE FELT SHE WAS NOT GOING TO GET BETTER. PT DENIES PAIN. CVA WITH RIGHT HEMIPARESIS. RIGHT ARM FLACCID. RIGHT LEG WEAKNESS. TAKES PILLS WHOLE ONE AT A TIME IN PUDDING. PT IS MOD ASSIST WITH GAIT BELT AND WALKER. PT TURNED THROUGHOUT NIGHT. PT INCONTINENT OF URINE MOST TIMES SHE WAS TURNED. STAFF DOES ALL CARES. BARRIER CREAM APPLIED. PT SLEPT BETWEEN TURNS. CALL LIGHT WITHIN REACH. BED ALARM ON FOR SAFETY. HOURLY ROUNDING IN PROGRESS, WILL CONTINUE TO MONITOR.
[2017-08-30 07:15] VITALS: BP 154/64
--- NOTE | 2017-08-30 14:42 | H ---
[place] [address] HISTORY AND PHYSICAL Name: RICK HEREDIA Room: [facility] IN .R.#: [id number] Admission: 08/09/17 Attend Phys: Anne Rush DO Discharge: Date of : 47 Report #: [id number] THIS REPORT FOR: //name// CC: Jeff Rush HISTORY OF PRESENT ILLNESS: This is a 72-year-old female known from previous rehab admission in 2016. She is a right-hand dominant female, brought by EMS on 08/01/2017 with having been found unresponsive in her home. 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 She was brought to the Emergency Room, intubated, ventilated in the ICU. She also did have some twitching suspicious for a seizure. Neurology was consulted for stroke workup and it was thought that the abnormal EEG was likely due to encephalopathy and/or medications. She did show an old left cerebrovascular accident and a new left temporoparietal and right parietal infarcts previous from her MRIs done in 2016, likely subacute in nature. There have been no significant changes since the preadmission screening. Her previous level of function was modified independent to minimum assistance with the help of her , her son with most ADLs. She was ambulating at household distances with the aid of her son. Current level of function is moderate assistance to maximum assistance independent for therapies depending on therapy, activity and time of day. She has severe aphasia with also some alterations in comprehension, problem solving and memory. She has multiple medical comorbidities requiring acute daily medical care. Estimated length of stay is 18-21 days with discharge disposition to the home setting with supportive family who have been caring for her for some time. PAST MEDICAL HISTORY: Hypertension, diabetes uncontrolled with a random glucose of 320, hyperlipidemia, hiatal hernia, aphasia, expressive and receptive; dysphagia, right-sided hemiplegia, history of multiple cerebrovascular accidents, acute renal failure, aspiration pneumonia and chronic kidney disease. PAST SURGICAL HISTORY: Tonsillectomy, hemorrhoidectomy. ALLERGIES: CONTRAST DYE, PENICILLIN, SULFA, TAPE AND COMPAZINE. SOCIAL HISTORY: Unchanged from consult. FAMILY HISTORY: Unchanged from consult. REVIEW OF SYSTEMS: Unable to obtain due to severe aphasia; however, does not appear to have fever, chest pain, shortness of breath or abdominal pain. PHYSICAL EXAMINATION: GENERAL: Alert, oriented, in no apparent distress. VITAL SIGNS: [place] [address] HISTORY AND PHYSICAL Name: RICK HEREDIA Room: [address] IN [facility].#: [id number] Admission: 08/09/17 Attend Phys: Anne Rush DO Discharge: Date of : 47 Report #: [id number] HEENT: Head atraumatic, normocephalic. Pupils equal, round, reactive. ABDOMEN: Soft, nontender, nondistended. NEUROLOGIC: Cranial nerves 2-12 are grossly intact with no focal neuro deficit. She does have some ongoing aphasia, some known dysphagia. She also has some right-sided upper and lower extremity hemiparesis. ASSESSMENT: 1. Status post new onset/subacute left temporal, temporoparietal and right parietal infarcts with known previous left middle cerebral artery cerebrovascular accident with residual left upper and lower extremity hemiparesis. 2. Multiple medical comorbidities including uncontrolled diabetes, hypertension, acute on chronic renal failure. PLAN: 1. Admission to inpatient rehabilitation to facilitate safe discharge to the home setting, more so at her baseline where she was previous to this most recent acute hospitalization. She will need / supervision and that can be provided by her and son. There will also likely need to be some updated family training. 2. PT, OT, speech, language, case management, nursing and HIMS to make evaluations and recommendations: 3. Plan of care is pending and we will team her weekly. 4. Medication reconciliation was completed by myself. <ELECTRONICALLY SIGNED> By: Anne Rush DO 08/30/17 1442 1506 [id number] Rush DO /nt
--- NOTE | 2017-08-30 14:42 | PLAN ---
[facility] [address] [place] [address] REHAB UNIT PLAN OF CARE Name: ESSENCETIANARICK Room: [facility] IN ..#: [id number] Admission: 08/09/17 Attend Phys: Anne Rush DO Discharge: Date of : 47 Report #: [id number] THIS REPORT FOR: //name// CC: Jeff Rush This is a right hand dominant female known to this service from previous admission in 2015. She has had multiple cerebrovascular accidents. Most recently, she was brought to the emergency room on 08/01/2017 with increased hemiparesis, aphasia and dysphagia. She was diagnosed with a subacute left temporoparietal CVA and a right parietal CVA with known left MCA CVA in the past with some ongoing residual aphasia and dysphagia as well as upper and lower extremity hemiparesis. She has needs in all disciplines. MEDICAL PROGNOSIS: Fair. REHABILITATION PROGNOSIS: Fair. Estimated length of stay is 18-21 days with discharge disposition to the home setting with supportive family who is experienced in taking care of her. Previous level of function was modified independent to minimum assistance with activities of daily living. Current level of function is moderate assistance to dependent with activities of daily living depending on therapy, activity and time of day. Physical therapy will see the patient 60-90 minutes per day, 5 days per week, working on upper and lower body strength, balance, coordination, navigation. Occupational therapy will see the patient 60-90 minutes per day, 5 days per week, working on upper and lower body strength, balance, coordination, navigation, bathing, dressing, and toileting. Speech and language pathology will work with the patient 60-90 minutes per day, 5 days per week, working on her aphasia, communication, comprehension, memory. Please note this is an overall plan of care, may change from time to time, we will team her weekly and make changes to the plan of care as needed. <ELECTRONICALLY SIGNED> By: Anne Rush DO 08/30/17 1442 1508 [id number] Rush DO /nt
--- NOTE | 2017-08-30 15:28 | NUR ---
ASSUMED CARE AT 0730. ALERT TO SELF AND SITUATION. HX OF CVA RT. SIDE WEAKNESS. TRANSFERS WITH 1 ASSIST FROM BED TO SITTING POSITION AMBULATES TO BR TO VOID. WEARS PULLUPS FOR INCONTINENCE TO BR EVER 3 HRS PT. DOESNT INIATE NEED TO VOID. FEEDS SELF WITH SET UP AND TAKES MEDS WITHOUT DIFFICULTY WITH WATER. BED CHAIR ALARM FOR PT. SAFETY. FORGETFUL AND CAN BE IMPULSIVE AT TIMES. DENIES PAIN OR REQUESTS. PARTICIPATING IN THERAPIES THROUGHOUT THE DAY. TO FOR MEALS.
[2017-08-30 19:30] VITALS: BP 132/54
[2017-08-30 23:48] VITALS: BP 132/54
[2017-08-31] MEDS ORDERED: LEVEMIR100 UNIT/1 SUBQ (00:14)
[2017-08-31] MEDS ORDERED: HUMALOG100 UNIT/1 SUBQ (00:16)
--- NOTE | 2017-08-31 05:16 | NUR ---
ASSUMED CARES AT 1920. PT ALERT AND ORIENTED. PLEASANT. CVA WITH RIGHT SIDE WEAKNESS. DENIES ANY PAIN. TAKES PILLS WHOLE. SHE IS A MIN ASSIST WITH GAIT BELT AND WALKER. WEARS PULLUPS. WAS INCONTINENT OF URINE THROUGHOUT THE NIGHT. STAFF ASSISTED WITH CARES. PT WAS TURNED DURING THE NIGHT. SLEPT WELL. CALL LIGHT IN REACH. BED ALARM ON.
[2017-08-31 07:00] VITALS: BP 168/80
[2017-08-31 08:00] VITALS: BP 168/80
[2017-08-31 09:56] VITALS: BP 132/54
--- NOTE | 2017-08-31 10:44 | NUR ---
CM SPOKE TO THE PATIENT AND HER SON MONA TO DISCUSS DISCHARGE PLANNING NEEDS AND ANY QUESTIONS OR CONCERNS THAT THEY MAY HAVE. PATIENT AND SON HAVE NO QUESTIONS OR CONCERNS AT THIS TIME. CM CONTATCED [facility] TO INFORM THAT THE PATIENT WOULD D/C HOME TODAY AND FAXED THE PATIENTS D/C ORDERS. [facility] WILL CONTACT THE PATIENT'S SON TO SETUP VISIT. CM WILL REMAIN AVIALABLE TO ASSIST AND FOLLOW NEEDED.
[2017-08-31] MEDS ORDERED: GLUCOTROL5 MG PO (12:51)
--- NOTE | 2017-08-31 14:45 | NUR ---
PT CARE ASSUMED AT 0730, ASSESSMENT AND VITAL SIGNS COMPLETED DOCUMENTED. PT COMPLETED HER THERAPY SESSIONS AND HAS MET HER DISCHARGE GOALS. DISCHARGE INSTRUCTIONS AND NEW PRESCRIPTIONS PROVIDED TO PT AND HER SON. PT AND BELONGINGS TRANSPORTED TO EXIT VIA WHEELCHAIR, DISCHARGED HOME IN STABLE CONDITION. HOME HEALTH TO FOLLOW.
--- NOTE | 2017-10-11 13:29 | D ---
[facility] [address] [place] [address] DISCHARGE SUMMARY Name: YANRICK Room: [address] IN M.R.#: [id number] Admission: 08/09/17 Attend Phys: Anne Rush DO Discharge: 08/31/17 Date of : 47 Report #: [id number] THIS REPORT FOR: //name// CC: Jeff Rush DATE OF SERVICE: 08/31/2017 DISCHARGE DIAGNOSIS: Left temporal and temporoparietal and right parietal cerebrovascular accidents with residual left upper and lower extremity hemiparesis. DISCHARGE DISPOSITION: To the home setting with home health, PT, OT and nursing and 10/01 supervision given by her son and . HOSPITAL COURSE: The patient waxed and waned during her rehabilitation, but for the most part did return to her previous baseline. Family training was completed and son and both participated. DISCHARGE MEDICATIONS: Medication reconciliation was completed by myself and medications needed for one month time were given. The patient was followed by Internal Medicine as well as Neurology and an EEG was completed due to suspicions for ongoing seizures. DISCHARGE PHYSICAL EXAMINATION: GENERAL: Alert, oriented, no apparent distress. VITAL SIGNS: Reviewed and are stable. HEENT: Head atraumatic, normocephalic. Pupils equal, round, reactive. SKIN: Warm and dry. No rashes or lesions noted. NEUROLOGIC: Right upper and lower extremity hemiparesis is noted. <ELECTRONICALLY SIGNED> By: Anne Rush DO 10/11/17 1329 1457 [id number] Rush DO /nt
== END 2017-08-31 14:30 | disposition home health service (06) | DRG 56 ==
LOC: M.REH 12:51
PROVIDERS: Family Medicine; Internal Medicine; ADMIT Physical Medicine & Rehabilitation
DX: G81.91 Hemiplegia, unspecified affecting right dominant side (principal); I63.9 Cerebral infarction, unspecified; G93.40 Encephalopathy, unspecified; J69.0 Pneumonitis due to inhalation of food and vomit; J96.00 Acute respiratory failure, unspecified whether with hypoxia or hypercapnia; R47.01 Aphasia; R13.10 Dysphagia, unspecified; E78.5 Hyperlipidemia, unspecified; I12.9 Hypertensive chronic kidney disease with stage 1 through stage 4 chronic kidney disease, or unspecified chronic kidney disease; N18.9 Chronic kidney disease, unspecified; E78.00 Pure hypercholesterolemia, unspecified; R56.9 Unspecified convulsions; E11.22 Type 2 diabetes mellitus with diabetic chronic kidney disease; G31.84 Mild cognitive impairment of uncertain or unknown etiology; Z87.01 Personal history of pneumonia (recurrent); Z88.0 Allergy status to penicillin; Z88.2 Allergy status to sulfonamides; Z88.8 Allergy status to other drugs, medicaments and biological substances; Z91.041 Radiographic dye allergy status; Z79.82 Long term (current) use of aspirin; Z79.899 Other long term (current) drug therapy

== ENCOUNTER 2018-06-21 18:26 | Inpatient (IN) | payer OTHER ==
[~2018-06-21] VITALS: Ht 157.5 cm; Wt 71.3 kg
--- NOTE | ~2018-06-21 | CON ---
[address] [address] CONSULTATION Name: ESSENCETIANARICK Room: [address] IN M.R.#: [id number] Admission: 06/21/18 Attend Phys: Roosevelt Brooke Discharge: Date of : 47 Report #: [id number] THIS REPORT FOR: //name// CC: Jeff Lainez DATE OF SERVICE: 06/25/2018 CONSULTATION: Infectious diseases. HISTORY OF PRESENT ILLNESS: The patient is a 73-year-old white female admitted to [facility] on 06/21 with status epilepticus. The patient required intubation to protect her airway, and there may be an aspiration event. The patient was maintained on the ventilator. The seizures were controlled. She was extubated after 3 days, but after a few hours, had to be reintubated due to respiratory distress. She then had a low fever and elevated white count. Infectious disease consultation was requested to assist with further evaluation and antibiotic management. PAST MEDICAL HISTORY: Significant for the seizure disorder, diabetes, hypertension, hyperlipidemia, hypothyroidism. The patient has chronic kidney failure stage 4. She has a diagnosis of depression. ALLERGIES: THE PATIENT HAS ALLERGY TO PENICILLIN AND SULFA. MEDICATION RECONCILIATION: The patient is on the following medications:. Cyanocobalamin 1000 mcg subcutaneous daily, L-thyroid 0.05 mg daily, folic acid 1 mg daily, methylprednisolone 40 mg IV q.8, vancomycin 1 gram q.12, propofol drip, lorazepam 0.5 mg IV push p.r.n. Epinephrine 0.5 mL inhalation q.1 hour p.r.n. Enoxaparin 80 mg at bedtime, fenofibrate 160 mg daily, gabapentin 300 mg t.i.d., albuterol 2.5 mg respiratory inhalation q.4 hours. Norepinephrine drip as needed for hypotension. Pantoprazole 40 mg IV push daily. Levetiracetam 500 mg p.o. b.i.d., aspirin 81 mg daily, calcium carbonate 500 mg daily, cholecalciferol 1000 units daily, paroxetine 20 mg daily, magnesium oxide 400 mg daily, ezetimibe 10 mg daily, levofloxacin 500 mg IV daily, hydralazine 10 mg q.6 IV p.r.n. hypertension, docusate 100 mg p.o. daily, MiraLax 17 grams p.o. daily, acetaminophen 650 mg q.4 hours p.r.n. per gastrostomy tube. Sodium chloride IV push. SOCIAL HISTORY: The patient is . There is no history of tobacco, alcohol nor drugs. REVIEW OF SYSTEMS: Unavailable as the patient is sedated on a ventilator. PHYSICAL EXAMINATION: GENERAL: The patient appears older than her stated age, chronically ill, [place] [address] CONSULTATION Name: RICK HEREDIA Room: [address] IN [facility]#: [id number] Admission: 06/21/18 Attend Phys: Roosevelt Brooke Discharge: Date of : 47 Report #: [id number] undernourished, but comfortable on the ventilator, not in any distress. VITAL SIGNS: Show maximum temperature 37.4. SKIN: Pale, but without any rash, lesions, wounds nor exanthems. ENT: Negative. There is some temporal wasting. CHEST: Demonstrates clear breath sounds. Oxygen saturation is 98% with 30% FiO2 on the ventilator. ABDOMEN: Belly is soft, not tender. Gastrostomy tube is present. The patient is tolerating the tube feeding. EXTREMITIES: Her right upper extremity is somewhat puffy. She does have an intrajugular catheter in the right neck. Lower extremities are unremarkable. LABORATORY DATA: White count has gone from 13.8-10.8, hemoglobin from 10.2-7.5, with hematocrit 23%, platelet 226,000. Electrolytes normal. BUN 18, creatinine has gone from 1.7 to 1.2. Liver function tests are normal. TSH is slightly elevated at 6.5. CRP is elevated at 160. Lactate is normal at 0.6. Radiology reports on a CT that there are basal infiltrates. CT of the neck shows dental caries, mild sinusitis and a thyroid nodule. ASSESSMENT AND PLAN: In summary, we have a patient with seizure disorder who now has respiratory failure. She is being treated with vancomycin plus Levaquin. I suggest we obtain cultures of the sputum now that she is intubated again. I would like to change Levaquin to cefepime as there is a lot of resistance among Gram negatives to quinolone antibiotics in the hospital and in the community. We will continue to follow radiographs, white count and results of cultures. Hopefully, the patient can stabilize and be extubated fairly quickly. I appreciate the opportunity of input in the care of the patient. Dr. Crum will return tomorrow to assume follow up infectious disease care. By: [id number] Tyson MD /renata
[~2018-06-21 18:26] MED LIST changes: +NEURONTIN 300300 M1 PO; -NEURONTIN600 MG PO; +VITAMIN D1000 UNI1 PO; -VITAMIN D3400 UNIT PO
[2018-06-21 18:30] VITALS: BP 177/79
[2018-06-21 20:18] LABS: HEMATOCRIT 30.8 % (37.0-47.0); HEMOGLOBIN 10.2 gm/dL (12.0-15.0); MCH 26.2 pg (26.0-34.0); MCHC 33.1 g/dL (28.0-37.0); MCV 79.2 fL (80.0-100.0); MPV 9.3 fl. (7.2-11.1); RBC 3.89 mil/uL (4.20-5.00); RDW-CV 14.9 % (10.5-14.5)
[2018-06-21 20:22] LABS: URINE BILIRUBIN NEGATIVE (Negative); URINE BLOOD 2+ (Negative); URINE CLARITY CLEAR; URINE COLOR YELLOW; URINE GLUCOSE-RANDOM TRACE (Negative); URINE KETONES NEGATIVE (Negative); URINE LEUKOCYTES NEGATIVE (Negative); URINE NITRITE NEGATIVE (Negative); URINE PROTEIN 1+ (Negative); URINE UROBILINOGEN 0.2 E.U./dl (0.2-1.0)
[2018-06-21 20:29] LABS: APTT 35.6 Seconds (25.0-31.3); INR 1.1; PROTIME 11.4 Seconds (9.20-11.50)
[2018-06-21 20:33] LABS: BACTERIA >30 Many /HPF (None Seen); URINE RBC 3-10 Few /HPF (0-2); URINE WBC 0-5 Rare /HPF (0-5)
[2018-06-21 20:34] LABS: CASTS None Seen /LPF (None Seen); CRYSTALS None Seen /LPF (None Seen); MUCUS None Seen strn/LPF (None Seen); SQUAMOUS 0-3 Few /LPF (0-3); WBC CLUMPS Few (None Seen)
--- NOTE | 2018-06-21 20:35 | NUR ---
TITRATED PTS PROPOFOL TO 20MCG/KG/MIN TO KEEP PT ADEQUATELY SEDATED. VERSED DRIP AT 5MG/HR.
[2018-06-21 20:37] LABS: CALCIUM 8.7 mg/dL (8.5-10.1); CREATININE 1.7 mg/dL (0.6-1.3); POTASSIUM 3.7 mmol/L (3.5-5.1)
[2018-06-21 20:42] LABS: ALBUMIN 3.1 g/dL (3.4-5.0); TOTAL BILIRUBIN 0.4 mg/dL (<0.1-1.0); TOTAL PROTEIN 6.4 g/dL (6.4-8.2)
--- NOTE | 2018-06-21 21:12 | NUR ---
PTS FAMILY INFORMS THAT THEY ARE LEAVING FOR THE NIGHT AND WILL COME SEE HER IN THE MORNING.
[2018-06-21 22:01] VITALS: BP 135/67
[2018-06-21 22:30] VITALS: BP 148/72
[2018-06-21 23:00] VITALS: BP 121/64
[2018-06-22] VITALS (25 sets, daily range): BP systolic 89–160; BP diastolic 3–77
--- NOTE | 2018-06-22 01:32 | NUR ---
PT. ARRIVED INTUBATED AND SEDATED AT 2215 TO ROOM 1. FAMILY HAD ALREADY GONE HOME, UNABLE TO OBTAIN ADMISSION INFORMATION FROM PT. DUE TO SEDATED ON VENTILATOR. SEE FULL ADMISSION ASSESSMENT. BILAT SOFT WRIST RESTRAINTS PLACED UPON ARRIVAL. VERSED/PROPOFOL GTT'S. PT. REPORTEDLY HAS HX OF MULTIPLE CVA'S, UNABLE TO ASSESS RIGHT OR LEFT SIDE DEFICITS. SEIZURE PRECAUTIONS IN PLACE, WILL CONTINUE TO MONITOR.
--- NOTE | 2018-06-22 05:03 | NUR ---
PT. REMAINS SEDATED ON VENTILATOR. BILAT SOFT WRIST RESTRAINTS REMAIN IN PLACE. HAVE NOT BEEN ABLE TO TALK TO FAMILY SINCE ADMISSION TO ICU. PROPOFOL AND VERSED GTT'S. NO SEIZURE ACTIVITY NOTED. 1 DOSE KEPPRA GIVEN. REMAINS SINUS RHYTHM ON MONITOR.
[2018-06-22 06:05] LABS: BE -2.1 mmol/L (-2 to +3); HCO3 21.4 mmol/L (22.0-26.0); PCO2 32.2 mmHg (35.0-45.0); PO2 113.1 mmHg (75.0-100.0); pH 7.441 (7.340-7.450)
--- NOTE | 2018-06-22 08:16 | NUR ---
ASSUMED CARE OFPATIENT. SEE DOCUMENTED ASSESSMENT. PATIENT IS FEBRILE. ORDER OBTAINED FROM HOSPITALIST FOR SHITAL
--- NOTE | 2018-06-22 08:21 | NUR ---
0800 DR GRAFF TO SEE PATIENT AND PLAN CARE
--- NOTE | 2018-06-22 09:40 | CON ---
[facility] [address] [place] [address] CONSULTATION Name: YANRICK Room: [address] ADM IN M.R.#: [id number] Admission: 06/21/18 Attend Phys: Roosevelt Brooke Discharge: Date of : 47 Report #: [id number] THIS REPORT FOR: //name// CC: Jeff Lainez DATE OF SERVICE: 06/21/2018 HISTORY OF PRESENT ILLNESS: This is a 73-year-old female patient who has been seen by me in the past. This patient has multiple strokes in the past. She has been admitted with possibility of seizures. The last I talked to the family, they have their own neurologist and I have cross-checked them and I have deferred the further evaluation and management to them. This patient was admitted from Emergency Room and it looks like the patient presented with altered mental status. They initially activated the code stroke, but subsequently discontinued the code stroke. From the records, it looks like the patient is on gabapentin as well as Keppra. She is on 500 b.i.d. of Keppra. No family member is here at the moment. REVIEW OF SYSTEMS: From the records, I have seen this patient in the past. She had multiple strokes in the past. Relevant history and physical examination has been summarized in my prior history and physical examination. She has been admitted with similar symptoms in the past, but the symptom appeared to be more severe now. 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 Fourteen-point review of system was carried out as much as I can from the record and from the memory. She usually goes to [facility], she is aphasic and hemiplegic. That is the relevant 14-point review of system which was done. FAMILY HISTORY: Noncontributory. SOCIAL HISTORY: The last I talked to the family, she requires 24-hour care. FAMILY HISTORY: Positive for stroke. PHYSICAL EXAMINATION: NEUROLOGIC: The patient has no response at the time. She is sedated. She is not actively seizing. She has no reflexes. She has no meningeal sign. Cranial nerve examination was attempted, but it is impossible to carry out. She is intubated. She is on vent. VITAL SIGNS: Blood pressure is 154/72, pulse is 82, temperature is 102, respiration is 14. IMAGING: She did have a CT scan on admission and it showed extensive disease, but it looks all old. IMPRESSION: This patient had multiple strokes in the [place] [address] CONSULTATION Name: RICK HEREDIA Room: [address] IN M.R.#: [id number] Admission: 06/21/18 Attend Phys: Roosevelt Brooke Discharge: Date of : 47 Report #: [id number] RECOMMENDATIONS: I will suggest talking to the family to see how aggressive they want to be in her care. I personally will suggest conservative care. I will get an EEG done. Her fever needs to be worked up and managed. We will try to contact the hospitalist as well as patient's family, mainly to see how aggressive they want to be. <ELECTRONICALLY SIGNED> By: Dashawn Rivera MD 06/22/18 0940 [id number] Rivera MD /nt
--- NOTE | 2018-06-22 10:30 | NUR ---
PT ADMITTED YESTERDAY, INTUBATED IN THE E.D. AND REMAINS ON THE VENT. NO FAMILY HERE AT THIS TIME BUT NURSING HAS TALKED TO THEM ON THE PHONE. CASE MGT WILL ASSESS AT LATER TIME.
--- NOTE | 2018-06-22 11:36 | NUR ---
EEG IN PROGRESS. DR EDEN TO SEE PATIENT. SON HERE AND STATES PATIENT DOES NOT USE ANY ASSISTIVE DEVICES,THAT THE SPOUSE AND HIMSELF HELP HER WALK NEEDED.
--- NOTE | 2018-06-22 13:45 | EKG ---
[place] [address] ELECTROCARDIOGRAM REPORT Name: RICK HEREDIA Room: [address] ADM IN M.R.#: [id number] Admission: 06/21/18 Attend Phys: Roosevelt Brooke Discharge: Date of : 47 Report #: [id number] THIS REPORT FOR: //name// [facility] ED Test Date: 2018-06-21 Test Time: 18:33:07 Pat Name: RICK HEREDIA Department: Room: [facility] Gender: F Bad Work Gatherer: DONALD : 1945 Requested By: Eli Rock Order Number: [id number] MD: Dakota Ward Measurements Intervals [place] Rate: 109 P: 42 OK: 39 QRS: 86 QRSD: 173 T: 165 QT: 336 QTc: 453 Interpretive Statements Sinus tachycardia,severe artifact Multiple ventricular premature complexes Right atrial enlargement LVH with secondary repolarization abnormality Electronically Signed On 06-22-2018 13:45:42 [employer] CUSTODIAN by Dakota Ward [email or web address] <ELECTRONICALLY SIGNED> By: Dakota Ward MD, [facility] 06/22/18 1340 1833 1833 Dakota Ward MD, [facility] /EPI
--- NOTE | 2018-06-22 17:25 | NUR ---
PATIENT WITH PROGRESSION TOWARDS GOALS. NO SEIZURE ACTIVITY NOTED. EEG DONE. SEEN BY PULMONARY. FEVER RESOLVED. FAMILY HAS VISITED. PLAN PER PULMONARY FOR POSSIBLE VENT WEANING TRIAL TOMORROW.
--- NOTE | 2018-06-22 20:55 | NUR ---
REPORT RECEIVED FROM OFF GOING SHIFT. CARE ASSUMMED. VENTILATOR INTACT WITH SETTINGS TV 500, AC 12 PEEP 5 AND FIO2 356% OGT INTACT AND CONNECTED TO LIS. RAMIREZ INTACT AND PATENT DRAINING YELLOW URINE TO BEDSIDE BAG. SZ PRECAUTIONS REMAIN IN AFFECT. MONITORS INTACT WITH ALARMS SET. WILL CONTINUE TO MONITOR
[2018-06-23] VITALS (26 sets, daily range): BP systolic 114–157; BP diastolic 46–63
[2018-06-23 02:25] LABS: ABSOLUTE BASOPHILS 0.1 thou/uL (0.0-0.2); ABSOLUTE EOSINOPHILS 0.2 thou/uL (0.0-0.7); ABSOLUTE LYMPHOCYTES 2.2 thou/uL (0.8-5.3); ABSOLUTE MONOCYTES 0.9 thou/uL (0.0-1.2); ABSOLUTE NEUTROPHILS 10.4 thou/uL (1.6-8.1); BASOPHILS 0.6 %; EOSINOPHILS 1.1 %; HEMATOCRIT 24.7 % (37.0-47.0); MCH 25.3 pg (26.0-34.0); MCHC 32.3 g/dL (28.0-37.0); MCV 78.4 fL (80.0-100.0); MONOCYTES 6.8 %; MPV 9.5 fl. (7.2-11.1); NUCLEATED RBCS 0 /100WBC; POLYS 75.5 %; RBC 3.15 mil/uL (4.20-5.00); WBC 13.8 thou/uL (4.0-11.0)
[2018-06-23 02:28] LABS: PLATELET COUNT* 211 thou/uL (150-400)
[2018-06-23 02:30] LABS: CREATININE 1.6 mg/dL (0.6-1.3); POTASSIUM 3.5 mmol/L (3.5-5.1)
--- NOTE | 2018-06-23 09:48 | NUR ---
SEDATION TURNED OFF FOR WEANING TRIAL TODAY PER SEDATION VACATION INTERVENTION. FLUIDS OFF WELL AT THIS TIME PER PULMONARY.
--- NOTE | 2018-06-23 10:33 | CON ---
[facility] [address] [place] [address] CONSULTATION Name: RICK HEREDIA Room: [address] IN M.R.#: [id number] Admission: 06/21/18 Attend Phys: Roosevelt Brooke Discharge: Date of : 47 Report #: [id number] THIS REPORT FOR: //name// CC: Jeff Lainez HISTORY OF PRESENT ILLNESS: The patient was intubated and sedated during my visit. History gathered from the RN, nursing staff and from medical record. This is a 73-year-old female patient with a past medical history of previous CVA. Apparently, she has aphasia, but she ambulates with assistance. She was brought into the ER with mental status change. Code Stroke was called and also it was noted that she had seizures at home and en route and in the ER. She was intubated and started on sedation to control the seizures. This morning, she was getting an EEG. Also, it was noted that she is running a fever. Chest x-ray did not show significant consolidation, but she was started on antibiotics. During the time of my visit, she was on Versed 5 mg and propofol. Apparently, the patient was normal within 30 minutes prior to arrival by EMS. PAST MEDICAL HISTORY: Diabetes mellitus, hiatal hernia, tonsillectomy, hemorrhoid surgery, hypertension, hyperlipidemia, strokes x 4, aphasia at baseline. PAST SURGICAL HISTORY: As above. HOME MEDICATIONS: She is on Zetia, Synthroid, Pravachol, Neurontin, Keppra, Paxil, amlodipine, magnesium supplement, aspirin, Pradaxa, insulin, glipizide. ALLERGIES: CONTRAST, PENICILLIN, SULFA, TAPE, and COMPAZINE. FAMILY HISTORY: Not obtainable at this point. SOCIAL HISTORY: Not obtainable at this point. Lives with family. Aphasic at baseline. REVIEW OF SYSTEMS: Unobtainable at this point due to the patient's condition, unresponsive, intubated, on sedation. PHYSICAL EXAMINATION: GENERAL: Intubated, sedated. VITAL SIGNS: Blood pressure 113/49. She is on Versed and propofol. She was getting EEG this morning. She is on the ventilator, assisted control. Her respiratory rate was with the vent around 12-15. She had a temperature of 39.1. HEENT: Head: Normocephalic, atraumatic. Pupils are reactive to light. External [place] [address] CONSULTATION Name: RICK HEREDIA Room: [address]#: [id number] Admission: 06/21/18 Attend Phys: Roosevelt Brooke Discharge: Date of : 47 Report #: [id number] NECK: Supple. No palpable lymph nodes. No palpable thyroid. Trachea is central. CHEST: Diminished air movement bilaterally. No wheezes, no crackles. HEART: S1, S2, no murmur. ABDOMEN: Benign, soft, lax, nontender, positive bowel sounds. No masses felt. EXTREMITIES: Lower extremities, no edema, no calf tenderness. NEUROLOGIC: She withdraws to pain in the 4 extremities, but no spontaneous movements. Mood and affect could not be evaluated, SKIN: Normal for age and race. No rash. Her CT head did not show acute pathology, but showed chronic changes. Please see the report. Her chest x-ray, she had multiple chest x-rays showing the gastric tube and endotracheal tube seems to be in good position with a central line, a small left-sided pleural effusion. No definite infiltrate. LABORATORY DATA: Her white blood count is 10, hemoglobin 10.2, platelets of 305. ABGs: 7.44/32/113. This was on assist control ventilation with tidal volume of 500 and FiO2 of 35%. Her creatinine is 1.7 with a potassium of 3.7, sodium 140, bicarbonate 25. IMPRESSION: 1. Acute respiratory failure. 2. Mental status change. 3. Seizures. 4. Acute stroke. 5. Possible aspiration. 6. Fever. PLAN: 1. At this point, the patient will be kept on the vent. I would keep the current vent settings. She is getting EEG and further evaluation by Neurology. I agree with antibiotics and we need to repeat chest x-ray. There is a question if she aspirated during this whole process, currently using propofol and Versed, which I would continue given the history of seizures. I will keep her on a scheduled nebulization treatment. Follow up chest x-ray and ABGs. 2. Once we get clearance from Neurology, we will start weaning her off sedation and start the weaning process of the vent. 3. Discussed with RN. Critical care time 35 minutes. <ELECTRONICALLY SIGNED> By: Rachell Chapman MD 06/23/18 1033 1210 1752Djustice Chapman MD /nt
[2018-06-23 12:53] LABS: BE -3.6 mmol/L (-2 to +3); HCO3 20.6 mmol/L (22.0-26.0); PCO2 33.4 mmHg (35.0-45.0); PO2 114.1 mmHg (75.0-100.0); pH 7.408 (7.340-7.450)
--- NOTE | 2018-06-23 14:20 | NUR ---
SPOKE WITH NURSE. NO FAMILY HERE AT THIS TIME BUT SPOKE WITH FAMILY EARLIER TODAY. FAMILY WANTS PT TO BE A FULL CODE AT THIS TIME. REMAINS ON VENT, WEANING TRIAL AGAIN TOMORROW.
--- NOTE | 2018-06-23 17:27 | NUR ---
PATIENT PROGRESSING TOWARDS GOALS. PASSED WEANING TRIAL TODAY, HOWEVER PULMONARY WOULD LIKE TO GIVE PATIENT ONE MORE DAY ON VENTILATOR. ORDERS TO MINIMIZE SEDATION AND REPEAT TRIAL IN AM. ABG AFTER. TYLNEOL GIVEN X1 FOR INCREASING TEMPERATURE, CORE TEMP NOW 99.7. NO SEIZURE ACTIVITY NOTED. PATIENT SON PRESENT THROUHGOUT SHIFT, ABLE TO SPEAK WITH NEUROLOGIST. PLAN IS TO KEEP PATIENT FULL CODE AND AFTER EXTUBATION ATTEMPT TO INCREASE SEIZURE MEDICATIONS. SON DENIES NEW CONCERNS ABOUT PATIENT CARE.
[2018-06-24] VITALS (36 sets, daily range): BP systolic 116–158; BP diastolic 47–77
[2018-06-24 04:27] LABS: ABSOLUTE BASOPHILS 0.1 thou/uL (0.0-0.2); ABSOLUTE EOSINOPHILS 0.3 thou/uL (0.0-0.7); ABSOLUTE LYMPHOCYTES 1.6 thou/uL (0.8-5.3); ABSOLUTE MONOCYTES 0.9 thou/uL (0.0-1.2); ABSOLUTE NEUTROPHILS 8.5 thou/uL (1.6-8.1); BASOPHILS 0.5 %; EOSINOPHILS 2.7 %; HEMATOCRIT 24.5 % (37.0-47.0); HEMOGLOBIN 7.7 gm/dL (12.0-15.0); LYMPHOCYTES 13.8 %; MCH 25.2 pg (26.0-34.0); MCHC 31.5 g/dL (28.0-37.0); MONOCYTES 8.2 %; MPV 10.3 fl. (7.2-11.1); NUCLEATED RBCS 0 /100WBC; PLATELET COUNT* 200 thou/uL (150-400); POLYS 74.8 %; RBC 3.06 mil/uL (4.20-5.00); RDW-CV 15.2 % (10.5-14.5); WBC 11.4 thou/uL (4.0-11.0)
[2018-06-24 04:52] LABS: CREATININE 1.3 mg/dL (0.6-1.3); POTASSIUM 3.5 mmol/L (3.5-5.1); TOTAL BILIRUBIN 0.3 mg/dL (<0.1-1.0); TOTAL PROTEIN 5.7 g/dL (6.4-8.2)
--- NOTE | 2018-06-24 05:56 | NUR ---
REPORT RECEIVED FROM OFF GOING SHIFT, CARE ASSUMMED. PT REMAINS ON VENTILATOR SETTINGS AC 12, TV 500, PEEP 5 AN DFIO2 30%. ETT 24 AT LIP. OGT TUBE INTACT WITH TUBE FEEDING INFUSING AT 10CC/HR VIA PUMP AND TOLERATING WEL. RAMIREZ INTACT AND PATNET DRAINING YELLOW URNE OT BEDSIDE BAG. MONITORS INTACT WITH ALARMS SET. PT TOLERATED TUBE FEEDINGS WITH MINIMAL RESIDUALS, TUBE FEEDING INCREASED TO 20CC/HR. VSS AND NO ACUTE CHANGES DURING SHIFT, WILL CONTINUE TO MONITOR.
[2018-06-24 09:19] LABS: BE -4.4 mmol/L (-2 to +3); HCO3 20.2 mmol/L (22.0-26.0); PCO2 35.4 mmHg (35.0-45.0); PO2 108.7 mmHg (75.0-100.0); pH 7.375 (7.340-7.450)
--- NOTE | 2018-06-24 13:05 | NUR ---
PT EXTUBATED AT 1000 THIS AM. PT HAD STIDOR BREATH SOUND IMMEDIATELY AFTER EXTUBATION. PT WAS GIVEN THREE DOSES OF RACIMIC EPINEPHRINE. BREATH SOUNDS BECOME CLEARER. PT BEGAN TO HAVE AUDIBLE STRIDOR BREATH SOUNDS AGAIN AT 1130. O2 SAT BEGAN TO DECREASE INTO THE 80'S. RESPIRATORY GAVE 1 RACIMIC EPINEPHRINE BREATHING TREATMENT. PULMONARY PHYSICIAN ORDER PT TO BE REINTUBATED. PT INTUBATED AT 1200. PT CURRENLTY ON PROPOFOL GTT FOR SEDATION. WAS NOTIFIED
[2018-06-24 13:32] LABS: BE -3.2 mmol/L (-2 to +3); HCO3 21.4 mmol/L (22.0-26.0); PO2 106.1 mmHg (75.0-100.0); pH 7.392 (7.340-7.450)
--- NOTE | 2018-06-24 17:37 | NUR ---
PT NOT PROGRESSING TOWARD GOALS. PT WAS RE-INTUBATED AFTER EXTUBATION THIS AM. PT SARATH SEDATED. UNABLE TO CONTROL PT FEVER. PT TMAX 102.0. PT WAS GIVEN TYLENOL, ICE BAGS PLACED, COOL BATH AND FAN. PT SARATH HAS A TEMP OF 101.7. ID WAS CONSULTED. VANCOMYCIN ADDED TO ANTIBIOTICS. PT HAD A BM THIS EVENING. TWO PRESSURE WOUNDS DISCOVERED ON RIGHT AND LEFT SIDE OF BUTTOX. WOUNDS LOOK TO BE OLD SCAR TISSUE. NOT SURE IF THESE ARE NEW. PICTURE WAS TAKEN AND ADDED TO HER CHART.
[2018-06-25] VITALS (24 sets, daily range): BP systolic 113–164; BP diastolic 46–91
[2018-06-25 04:34] LABS: ABSOLUTE BASOPHILS 0.1 thou/uL (0.0-0.2); ABSOLUTE EOSINOPHILS 0.3 thou/uL (0.0-0.7); ABSOLUTE LYMPHOCYTES 1.9 thou/uL (0.8-5.3); ABSOLUTE MONOCYTES 0.8 thou/uL (0.0-1.2); ABSOLUTE NEUTROPHILS 7.8 thou/uL (1.6-8.1); BASOPHILS 0.5 %; EOSINOPHILS 2.5 %; HEMOGLOBIN 7.5 gm/dL (12.0-15.0); LYMPHOCYTES 17.6 %; MCHC 32.7 g/dL (28.0-37.0); MCV 79.4 fL (80.0-100.0); MONOCYTES 7.2 %; MPV 10.2 fl. (7.2-11.1); NUCLEATED RBCS 0 /100WBC; PLATELET COUNT* 226 thou/uL (150-400); POLYS 72.2 %; RDW-CV 15.1 % (10.5-14.5); WBC 10.8 thou/uL (4.0-11.0)
[2018-06-25 05:07] LABS: ALBUMIN 1.8 g/dL (3.4-5.0); CALCIUM 8.2 mg/dL (8.5-10.1); CREATININE 1.2 mg/dL (0.6-1.3); POTASSIUM 3.4 mmol/L (3.5-5.1); TOTAL BILIRUBIN 0.4 mg/dL (<0.1-1.0); TOTAL PROTEIN 5.6 g/dL (6.4-8.2)
--- NOTE | 2018-06-25 05:45 | NUR ---
PT. NOT PROGRESSING TOWARDS GOALS. REMAINS SEDATED ON VENTILATOR, PROPOFOL GTT. IVF REMAIN INFUSING. BILAT SOFT WRIST RESTRAINTS IN PLACE. NO VISITORS THIS SHIFT. REMAINS SINUS RHYTHM ON MONITOR. BP'S WITHIN NORMAL LIMITS. WILL CONTINUE TO MONITOR.
[2018-06-25 13:42] LABS: BE -4.2 mmol/L (-2 to +3); HCO3 20.2 mmol/L (22.0-26.0); PCO2 34.1 mmHg (35.0-45.0); PO2 97.8 mmHg (75.0-100.0); pH 7.391 (7.340-7.450)
--- NOTE | 2018-06-25 18:58 | NUR ---
PT PROGRESSING TOWARD GOALS. PT WAKES WHEN STIMULATED. PTS AT BEDSIDE TODAY. PT TAKEN TO CT. SPOKE WITH RADIOLOGY CONCERNING RIGHT HUMERUS FRACTURE. THIS IS A PREVIOUS FRACTURE, PRIOR TO THIS HOSPITAL STAY. ORTHO CONSULTED.
--- NOTE | 2018-06-25 22:21 | NUR ---
INITAL ASSESMENT COMPLETED AT 1999. PT INTUBATED AND SEDATED ON VENTILATOR. PT RECIEVING PROPOFOL DRIP FOR SEDATION. PT OPENS EYES TO TOUCH BUT DOES NOT FOLLOW OR TRACK WITH EYES. PT RESTRAINED WITH BILATERAL SOFT WRIST RESTRAINTS TO MAINTAIN ET TUBE, CENTRAL LINE, RAMIREZ CATHETER AND OG TUBE. PT SINUS RHYTHM ON MONITOR. BLOOD PRESSURE WITHIN DEFINED LIMITS. O2 SAT 97-100% ON 30% FIO2. PT RECIEVING NEPRO TUBE FEEDING VIA OG TUBE. 25 ML RESIDUAL, INFUSING AT 20 ML/HR. PT AFEBRILE AT THIS TIME. ORAL CARE AND SUCTIONING DONE PER VENTILATOR BUNDLE.
[2018-06-26] VITALS (25 sets, daily range): BP systolic 104–174; BP diastolic 35–68
[2018-06-26 05:09] LABS: ABSOLUTE MONOCYTES 0.3 thou/uL (0.0-1.2); ABSOLUTE NEUTROPHILS 6.9 thou/uL (1.6-8.1); BASOPHILS 0.2 %; HEMATOCRIT 24.7 % (37.0-47.0); LYMPHOCYTES 11.7 %; MCH 25.8 pg (26.0-34.0); MCHC 32.4 g/dL (28.0-37.0); MCV 79.6 fL (80.0-100.0); MONOCYTES 3.3 %; MPV 9.9 fl. (7.2-11.1); NUCLEATED RBCS 0 /100WBC; PLATELET COUNT* 253 thou/uL (150-400); POLYS 84.8 %; RDW-CV 15.6 % (10.5-14.5); WBC 8.2 thou/uL (4.0-11.0)
[2018-06-26 05:15] LABS: ALBUMIN 1.7 g/dL (3.4-5.0); CALCIUM 8.3 mg/dL (8.5-10.1); CREATININE 1.1 mg/dL (0.6-1.3); POTASSIUM 3.5 mmol/L (3.5-5.1); TOTAL BILIRUBIN 0.4 mg/dL (<0.1-1.0); TOTAL PROTEIN 5.8 g/dL (6.4-8.2)
[2018-06-26 05:20] LABS: pH 7.363 (7.340-7.450)
[2018-06-26 05:21] LABS: BE -6.8 mmol/L (-2 to +3); HCO3 17.8 mmol/L (22.0-26.0); PO2 96.8 mmHg (75.0-100.0)
--- NOTE | 2018-06-26 11:31 | NUR ---
PATIENT REMAINS ON VENT RESPONDS TO NOXIOUS STIMULI. SEDATION HELD WAS MORE RESPONSIVE. ATTMPTED LEAK TEST PT WITHOUT LOSS OF PRESSURE. TUBE FEEDING CHANGED TO GLUCERNA WHILE ON PROPOFOL. PROGRESSING SLOWLY.
--- NOTE | 2018-06-26 14:00 | EEG ---
[facility] [address] [place] [address] EEG STUDY REPORT Name: RICK HEREDIA Room: [address] IN M.R.#: [id number] Admission: 06/21/18 Attend Phys: Roosevelt Brooke Discharge: Date of : 47 Report #: [id number] THIS REPORT FOR: //name// CC: Jeff Lainez DATE OF SERVICE: 06/22/2018 This patient is being evaluated for seizure. EEG was done by placing the electrodes by standard 10-20 system of electrode placement. Both referential and sequential montages were used for recording. EEG is very poorly formed and disorganized. Background activity is about 4-5 Hz and 30 microvolt. It is asymmetrical as expected with the stroke. No active epileptiform activity was noticed. Photic stimulation is unremarkable. IMPRESSION: This is an abnormal EEG because it is disorganized and poorly formed. That is a nonspecific abnormality, which can occur with dementia, encephalopathy, effect of psychotropic medication, insult of the brain, etc. Clinical correlation is recommended. <ELECTRONICALLY SIGNED> By: Dashawn Rivera MD 06/26/18 1400 1212 1234Prossy Rivera MD /nt
[2018-06-27] VITALS (23 sets, daily range): BP systolic 102–173; BP diastolic 43–82
[2018-06-27 03:37] LABS: HEMATOCRIT 23.5 % (37.0-47.0); HEMOGLOBIN 7.7 gm/dL (12.0-15.0); MCH 25.6 pg (26.0-34.0); MCHC 32.8 g/dL (28.0-37.0); MPV 9.6 fl. (7.2-11.1); NUCLEATED RBCS 0 /100WBC; PLATELET COUNT* 258 thou/uL (150-400); RBC 3.01 mil/uL (4.20-5.00); RDW-CV 14.8 % (10.5-14.5); WBC 8.6 thou/uL (4.0-11.0)
[2018-06-27 04:02] LABS: CALCIUM 8.3 mg/dL (8.5-10.1); CREATININE 1.3 mg/dL (0.6-1.3)
[2018-06-27 04:06] LABS: PREALBUMIN 13.5 mg/dL (18.0-35.7)
[2018-06-27 05:39] LABS: ABSOLUTE LYMPHOCYTES 0.6 thou/uL (0.8-5.3); ABSOLUTE MONOCYTES 0.2 thou/uL (0.0-1.2); ABSOLUTE NEUTROPHILS 7.8 thou/uL (1.6-8.1); ANISOCYTOSIS 1+; HYPOCHROMASIA 1+; PLATELET ESTIMATE ADEQUATE; POIKILOCYTOSIS 1+; TARGET CELLS Occasional
--- NOTE | 2018-06-27 08:12 | NUR ---
Pt turned q2h. Copious amts of oral secretions noted at times. Oral care given prn. Pt off TF and Propofol for weanign trial from 0500 to 0620. Pt on weaning trial from 0515 to 0600. RT reports pt tolerated well. VSS. Will continue to monitor.
[2018-06-27 11:35] LABS: BE -1.6 mmol/L (-2 to +3); HCO3 23.3 mmol/L (22.0-26.0); PCO2 39.7 mmHg (35.0-45.0); PO2 89.8 mmHg (75.0-100.0); pH 7.386 (7.340-7.450)
--- NOTE | 2018-06-27 13:27 | NUR ---
WOUND CARE NOTE: ASSESSMENT FOR PRESSURE ULCERS PATIENT PRESENTS WITH SCAR TISSUE TO BILATERAL ISCHIAL TUBEROSITIES. BELIEVE PATIENT DID HAVE WOUNDS TO THESE AREAS, BUT HAVE SINCE RESOLVED. PATIENT CURRENTLY ON JANINA MATTRESS AND ON A TURN SCHEDULE, RECOMMEND CONTINUING. ALSO RECOMMEND LIMIT HOB <30 DEGREES WHEN ABLE LIMIT LAYERS OF LINEN UNDER PATIENT BARRIER OINTMENT BID AND PRN INCONTINENCE
--- NOTE | 2018-06-27 16:52 | NUR ---
SPOKE WITH SON AT BEDSIDE. SON LIVES WITH PT AND HER . PER SON PT IS ABLE TO BE UP AND ABOUT IN THE HOUSE WITH SOME ASSISTANCE. HE SAID PT HAD BEEN DOING WELL AT HOME, THEN HAD A SEIZURE AND WAS ADMITTED. SON HAS NO QUESTIONS ABOUT PLAN OF CARE, HE SAID HE HASN'T BEEN ABLE TO BE HERE IN THE MORNING TO TALK WITH THE DOCTORS BUT THE NURSES ARE KEEPING HIM UPDATED. CASE MGT TO CONTINUE TO FOLLOW.
--- NOTE | 2018-06-27 18:51 | NUR ---
PT ASSESSMENT CHARTED. VSS THROUGHOUT SHIFT. EXTUBATED AT 1350. UNABLE TO ASSESS ORIENTATION BUT PATIENT IS ALERT. PT UNABLE TO COUGH UP SUCRETIONS SO DEEP SUCTION IS NEEDED AT TIMES. PRN BREATHING TREATMENTS FOR STRIDOR. Q2H TURNS TO MAINTAIN SKIN INTEGRITY. WOUND CARE NURSE OBSERVED 2 HEALED SORES ON BUTTOCKS. RECOMMENDATION TO CONTINUE USING BARRIER CREAM.
[2018-06-28] VITALS (24 sets, daily range): BP systolic 133–168; BP diastolic 49–83
[2018-06-28 04:05] LABS: HEMOGLOBIN 7.9 gm/dL (12.0-15.0); MCH 26.4 pg (26.0-34.0); MCHC 34.3 g/dL (28.0-37.0); MPV 9.2 fl. (7.2-11.1); RBC 2.98 mil/uL (4.20-5.00); RDW-CV 14.6 % (10.5-14.5); WBC 10.2 thou/uL (4.0-11.0)
[2018-06-28 04:21] LABS: CALCIUM 8.4 mg/dL (8.5-10.1); CREATININE 1.2 mg/dL (0.6-1.3); MAGNESIUM 1.5 mg/dL (1.8-2.4)
--- NOTE | 2018-06-28 07:20 | NUR ---
Pt's respirations labored, rate 20-28. Pt is mouth breather, and at times will cough. Sounds as if she is trying to cough something up but unable to do so with fair cough effort. Receiving resp treatments q4h. At 0430 pt placed on 35% CAG mask to provide respiratory humidity. Pt pulls mask down off of mouth at times. Mg++ 1.5 this am; replacement dose infusing. VSS. Will continue to monitor.
--- NOTE | 2018-06-28 17:54 | NUR ---
PT ASSESSMENT CHARTED. VSS AT THIS TIME. 2 EPISODES OF EXTREME CARMEN REPORTED TO PHYSICIAN. SINUS CARMEN THROUGHOUT MOST OF THE SHIFT WITH SOME JUNCTIONAL RHYTHM NOTED AND DYSRHYTHMIA ON AND OFF THROUGHOUT SHIFT. HR LOW 28. CARDIOLOGY CONSULTED, EKG DONE, ECHO DONE. NO OTHER ORDERS RECEIVED FROM CARDIOLOGY. Q2H TURNS TO MAINTAIN SKIN INTEGRITY. PT INCREASINGLY VERBAL BUT STILL VERY WEAK. PT DOING WELL WITH HUMIDIFIED OXYGEN AND STRIDOR HAS SIGNIFICANTLY DECREASED. O2 SATURATION 93-97% WHEN OFF O2. SPEECH THERAPY INSTRUCTED TO EVALUATE PATIENT TOMORROW PER PULMONARY, SO STILL NPO FOR NOW.
[2018-06-29] VITALS: BP 155/62
[2018-06-29 05:27] LABS: HEMOGLOBIN 8.3 gm/dL (12.0-15.0); MCH 25.6 pg (26.0-34.0); MCHC 33.4 g/dL (28.0-37.0); MCV 76.8 fL (80.0-100.0); MPV 9.2 fl. (7.2-11.1); RBC 3.25 mil/uL (4.20-5.00); RDW-CV 15.2 % (10.5-14.5); WBC 9.1 thou/uL (4.0-11.0)
[2018-06-29 05:46] LABS: CALCIUM 9.2 mg/dL (8.5-10.1); POTASSIUM 3.8 mmol/L (3.5-5.1)
--- NOTE | 2018-06-29 06:19 | NUR ---
Pt pulled at mask frequently. Changed this morning to 2L O2 per NC; SaO2 mid- to upper 90s throughout the night. Breath snds clear, no stridor noted. Pt seems to be attempting to communicate, but no comprehensible words. VSS. Will continue to monitor.
--- NOTE | 2018-06-29 12:00 | NUR ---
PT FAILED SPEECH EVALUATION. MD NOTIFIED AND D5 1/2 NS STARTED. WILL REEVALUATE TOMORROW.
--- NOTE | 2018-06-29 15:25 | NUR ---
PT'S SON BROUGHT IN HOME PRADAXA FOR WHEN PT IS ABLE TO TAKE PILLS BY MOUTH. THE BOTTLE WAS SENT DOWN TO PHARMACY TO BE VERIFIED AND WILL BE STORED THERE UNTIL AN ORDER IS RECEIVED.
--- NOTE | 2018-06-29 16:19 | NUR ---
PT ASSESSMENT CHARTED. VSS THROUGHOUT SHIFT. NO COMPLAINTS OF PAIN. Q2H TURNS TO MAINTAIN SKIN INTEGRITY. REPORT GIVEN TO TELEMETRY NURSE. TRANSFER FROM 001 TO 232 AT 1615 VIA BED. FAMILY HAS BEEN UPDATED.
--- NOTE | 2018-06-29 16:32 | EKG ---
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 : 1945 Requested By: Zeb Logan Order Number: [id number] Sarah MD: Jez Chiu Measurements Intervals [place] Rate: 56 P: 41 ME: 186 QRS: 3 QRSD: 96 T: -11 QT: 444 QTc: 429 Interpretive Statements Sinus rhythm Anteroseptal infarct, age indeterminate Possible inferior scar Compared to ECG 06/21/2018 18:33:07 Myocardial infarct finding now present Sinus tachycardia no longer present Ventricular premature complex(es) no longer present Atrial abnormality no longer present Left ventricular hypertrophy no longer present Early repolarization no longer present Electronically Signed On 06-29-2018 16:32:25 SECURITY AND COMPLIANCE ANALYST by Jez Chiu [email or web address] <ELECTRONICALLY SIGNED> By: Jez Chiu MD, [facility] 06/29/18 1632 1503 [id number] Jez Chiu MD, [facility] /EPI
[2018-06-30] VITALS (7 sets, daily range): BP systolic 117–184; BP diastolic 46–82
--- NOTE | 2018-06-30 02:20 | NUR ---
ASSUMED CARE OF PT AT 1900. PT IS ALERT. VSS. OLINDA. PT HAS A HISTORY OF APHASIA, MAKING IT VERY DIFFICULT TO COMMUNICATE. PT IS IN SINUS RYTHM WITH A PROLONGED HI INTERVAL. PT IS SLEEPING QUIETLY IN BED. RESPIRATIONS ARE EVEN AND NONLABORED. WILL CONTINUE TO MONITOR PT.
[2018-06-30 04:48] LABS: CALCIUM 8.8 mg/dL (8.5-10.1); CREATININE 1.1 mg/dL (0.6-1.3); POTASSIUM 3.6 mmol/L (3.5-5.1)
--- NOTE | 2018-06-30 12:03 | NUR ---
CONTINUE TO FOLLOW, PT MOVED TO TELE FROM ICU YESTERDAY, SLEEPING AT THIS TIME. NO FAMILY IN ROOM. HAS ORDERS FOR THERAPY EVALS AND IS NPO. UNSURE WHAT DC NEEDS ARE AT THIS TIME. WILL FOLLOW
--- NOTE | 2018-06-30 15:06 | NUR ---
WOUND CARE NOTE: CONSULT RECEIVED FOR WOUNDS. PATIENT SEEN ON 06/27/18 REVEALING SCAR TISSUE TO BILATERAL ISCHIAL TUBEROSITIES. THESE REMAIN. RIGHT ISCHIAL TUBEROSITY SCAR TISSUE WITH PALE PRESENTATION, HOWEVER APPEARS TO BE STILL CLOSED. LEFT ISCHIAL TUBEROSITY SCAR IS PINK, BLANCHABLE. RECOMMEND TURN Q2 HOURS-SIDE TO SIDE UNLESS EATING. LIMIT HOB <30 DEGREES LIMIT LAYERS OF LINEN UNDER PATIENT BARRIER OINTMENT BID AND PRN INCONTINENCE
--- NOTE | 2018-06-30 22:49 | NUR ---
ASSUMED CARE OF PT AT 1900. PT IS ALERT BUT WORDS ARE DIFFICULT TO UNDERSTAND DUE TO APHASIA FROM PRIOR CVA'S. VSS. PERRLA. NO SIGNS OR SYMPTOMS OF PAIN. PT IS ABLE TO EAT WITHOUT ASPIRATING. PT ATE ONE SERVING OF PUDDING AND STATES THAT SHE IS DONE. PT IS IN SINUS RYTHM ON THE TELEMETRY. PT IS BEING TURNED EVERY 2 HOURS. PT IS SLEEPING COMFORTABLY IN BED. RESPIRATIONS ARE EVEN AND NONLABORED. WILL CONTINUE TO MONITOR PT.
[2018-07-01 04:35] VITALS: BP 147/52
[2018-07-01 05:12] LABS: CALCIUM 8.6 mg/dL (8.5-10.1); CREATININE 1.2 mg/dL (0.6-1.3); MAGNESIUM 1.7 mg/dL (1.8-2.4)
--- NOTE | 2018-07-01 07:25 | NUR ---
CHANGE OF SHIFT, BEDSIDE REPORT GIVEN PATIENT SEEN AT BEDSIDE, IN BED ASLEEP ASSUMED PATIENT CARE
[2018-07-01 08:00] VITALS: BP 162/63
[2018-07-01 12:00] VITALS: BP 144/49
[2018-07-01 16:00] VITALS: BP 153/52
--- NOTE | 2018-07-01 21:46 | NUR ---
ASSUMED CARE OF PT AT 1900. PT IS ALERT. VSS. PERRNIKIA. PT HAS APHASIA FROM PRIOR CVA. IT IS VERY DIFFICULT TO ASSESS WHETHER PT IS ALERT AND ORIENTED X 4. BUT IS ABLE TO FOLLOW MOST COMMANDS AND ANSWER YES AND NO QUESTIONS. PT DID EAT A PUDDING AND DRINK A CUP OF HONEY THICKENED WATER. BUT REFUSES TO EAT OR DRINK ANYTHING MORE. PT HAS A RAMIREZ. PT IS BEING TURNED EVERY 2 HOURS. PT IS IN SINUS RYTHM ON THE TELEMETRY. PT IS RESTING COMFORTABLY IN BED. RESPIRATIONS ARE EVEN AND NONLABORED. WILL CONTINUE TO MONITOR PT.
[2018-07-02] VITALS: BP 131/43
[2018-07-02 04:00] VITALS: BP 141/46
--- NOTE | 2018-07-02 07:25 | NUR ---
CHANGE OF SHIFT BEDSIDE GIVEN PATIENT SEEN IN BED SLEEPING ASSUMED PATIENT CARE
[2018-07-02 08:00] VITALS: BP 152/53
[2018-07-02 12:00] VITALS: BP 167/60
[2018-07-02 16:00] VITALS: BP 147/59
--- NOTE | 2018-07-02 18:31 | NUR ---
PATIENT TRANSFERRED TO 115 TELEPHONE REPORT GIVEN PATIENT AND BELONGINGS SENT VIA BED SPOUSE AT NOTIFIED, AT BEDSIDE
[2018-07-02 20:00] VITALS: BP 165/76
--- NOTE | 2018-07-03 06:25 | NUR ---
Transfer fron 2nd floor on dayshift. She is mostly non verbal they said. She has been communicating with me, yes and no answers. She does have expressive aphasia and dysphagia from CVA. She had some recent seizures which was why she was hospitalized. She isn't able to move her rt arm or both lower extremities. She does have to have her meds crushed and has to be fed. Her rt arm is edemedous. She's incontinent of bowel and bladder. She has been turned every 2 hours. She has slept well.
[2018-07-03] MEDS ORDERED: PREDNISONE 10 M10 M1 PO (08:43)
[2018-07-03] MEDS ORDERED: B12INJ SUBQ (08:43)
[2018-07-03] MEDS ORDERED: NYSTATIN100000 UNI SW&SWALLOW (08:43)
[2018-07-03] MEDS ORDERED: SYNTHROID50 MCG PO (08:43)
[2018-07-03] MEDS ORDERED: ACIDOPHILUS1 EAC4 PO (08:43)
[2018-07-03] MEDS ORDERED: CEFDINIR300 MG PO (08:43)
[2018-07-03] MEDS ORDERED: KEPPRA750 MG PO (08:43)
[2018-07-03] MEDS ORDERED: ALBUTEROL2.5 MG/0.5 INH (08:52)
[2018-07-03 08:56] LABS: ABSOLUTE EOSINOPHILS 0.1 thou/uL (0.0-0.7); ABSOLUTE LYMPHOCYTES 3.6 thou/uL (0.8-5.3); ABSOLUTE MONOCYTES 0.8 thou/uL (0.0-1.2); BASOPHILS 0.4 %; EOSINOPHILS 0.4 %; HEMATOCRIT 27.5 % (37.0-47.0); LYMPHOCYTES 26.5 %; MCH 25.8 pg (26.0-34.0); MCHC 32.9 g/dL (28.0-37.0); MCV 78.4 fL (80.0-100.0); MONOCYTES 6.1 %; NUCLEATED RBCS 0 /100WBC; PLATELET COUNT* 363 thou/uL (150-400); POLYS 66.6 %; RBC 3.51 mil/uL (4.20-5.00); RDW-CV 15.6 % (10.5-14.5); WBC 13.5 thou/uL (4.0-11.0)
[2018-07-03 09:19] LABS: ALBUMIN 2.4 g/dL (3.4-5.0); CALCIUM 9.2 mg/dL (8.5-10.1); CREATININE 1.2 mg/dL (0.6-1.3); POTASSIUM 3.2 mmol/L (3.5-5.1); TOTAL BILIRUBIN 0.3 mg/dL (<0.1-1.0); TOTAL PROTEIN 6.1 g/dL (6.4-8.2)
[2018-07-03 09:36] VITALS: BP 152/64
--- NOTE | 2018-07-03 14:59 | NUR ---
CASE MANAGEMENT SPOKE WITH PATIENTS FAMILY. FAMILY REQUESTING SKILLED PLACEMENT. NOTIFIED.
--- NOTE | 2018-07-03 16:00 | NUR ---
VIRAL SPOKE WITH SON,MONA, ON PHONE. DISCUSSED DISCHARGE PLANNING WITH HIM. HE SAID ON TUESDAY HE TALKED ABOUT REHAB WITH THE DR. HE SAID HE CANNOT POSSIBLY BRING HER HOME YET,THE WAY SHE IS-STILL SO WEAK. HE SPOKE OF INPT.REHAB. SHE SAID SHE WENT UP THERE LAST YEAR. EXPLAINED SHE MOST LIKELY WOULD NOT BE ABLE TO DO 3 HRS OF THERAPY,WHICH IS A REQUIREMENT TO GO TO REHAB. ALSO EXPLAINED HER INSURANCE THIS YEAR IS OUT OF NETWORK FOR REHAB UNIT AND HAS NO OUT OF NETWORK BENEFITS. TOLD HIM THERE ARE OTHER INPT REHAB UNITS THAT MAY BE ABLE TO ACCEPT HER THAT TAKE HER INSURANCE. HE THEN STARTED TALKING ABOUT [facility]. VIRAL CALLED THEM AND THEY ARE ALSO OON. HAD NOT HAD A CHANCE TO CALL HIM BACK, WHEN HE CAME TO DESK WITH HIS DAD (PT.S ). HE SAID PT.HAS NOT BEEN ABLE TO PARTICIPATE BECAUSE SHE HAS HAD SO MANY DRUGS IN HER FROM BEING ON THE VENTILATOR. HE DOES NOT WANT HER TO GO TO SNF. HE WANTS INPT.REHAB. LENO THOMPSON NOTIFIED ABOUT PT.NOT DISCHARGING TODAY. VIRAL WILL DISCUSS IN AM WITH
--- NOTE | 2018-07-03 16:51 | NUR ---
PATIENT REMAINS AT BASELINE ORIENTATION. REPOSITIONED EVERY 2 HOURS. INCONTINENT OF URINE. REFUSED PHYSICAL THERAPY. SPEECH THERAPY WAS ABLE TO FEED PATIENT BREAKFAST TODAY. NO COUGHING NOTED WITH EATING. THICKENED LIQUIDS PROVIDED THROUGHOUT THE DAY. NURSING AND THERAPY ATTEMPTED TO GET PATIENT OUT OF BED AND PATIENT ADAMENTLY REFUSED. FAMILY VISITED THIS AFTERNOON AND WERE UPDET PATIENT WAS GOING TO BE DISCHARGED. FAMILY WOULD LIKE PATIENT TO GO TO A SNF. CASE MANAGEMENT SPOKE WITH FAMILY. CALL LIGHT WITHIN REACH. WILL CONTINUE TO MONITOR.
[2018-07-03 17:21] VITALS: BP 127/61
--- NOTE | 2018-07-03 17:59 | NUR ---
PATIENTS VERY GRUFF WITH PATIENT AT TIMES. INSISTED WE GET PATIENT TO COMMODE. PATIENT REFUSED AT FIRST AND BECAME UPSET. BECAME ZHANG WITH HER ONCE AGAIN AND SHE AGREED TO GET TO COMMODE. BED CHANGED AND PATIENT WIPED DOWN. PATIENT TRANSFERRED WITH ASSIST OF 2, AND GAITBELT.
[2018-07-03 20:20] VITALS: BP 117/60
[2018-07-04 08:55] VITALS: BP 169/69
[2018-07-04 10:55] VITALS: BP 169/69
--- NOTE | 2018-07-04 11:09 | CON ---
[address] [address] CONSULTATION Name: RICK HEREDIA Room: [address] IN M.R.#: [id number] Admission: 06/21/18 Attend Phys: Roosevelt Brooke Discharge: Date of : 47 Report #: [id number] THIS REPORT FOR: //name// CC: Jeff Lainez DATE OF SERVICE: 06/24/2018 Total critical care time for this patient was 31 minutes. <ELECTRONICALLY SIGNED> By: Rachell Chapman MD 07/04/18 1109 1421 [id number] Avila MD /nt
[2018-07-04 15:37] VITALS: BP 140/47
--- NOTE | 2018-07-04 15:59 | NUR ---
ASSUMED CARE OF PT AROUND 0730 THIS AM. REFER TO ASSESSMENT. PT GOALS FOR THIS SHIFT WAS FOR SAFETY, VSS, AND POSSIBLY DC TO SNF/REHAB. PT SOMEWHAT PROGRESSING TOWARDS GOALS THIS SHIFT. AWAITING INSURANCE AUTHORIZATION AND ASSISTED ACCEPTANCE FOR PLACEMENT. PT COMBATIVE AND UNCOOPERATIVE THIS AM. REFUSING TO TAKE MEDICATIONS OR EAT FOR THIS NURSE. FAMILY AT BEDSIDE AND ABLE TO GIVE SOME BREAKFAST AND LUNCH TO PT. PT UNCOOPERATIVE AND REFUSING TO WORK WITH THERAPY TODAY WELL. NO OTHER CONCERNS AT THIS TIME. CLWR. WCTM.
--- NOTE | 2018-07-04 16:56 | NUR ---
PT'S SON HAS CONCERNS ABOUT THE INSULIN SHE IS RECEIVING WHILE AT THE HOSPITAL AND IS REQUESTING IT MIRROR WHAT HE GIVES HER AT HOME. WILL PASS ALONG TO TALK TO PHYSICIAN DURING ROUNDING TOMORROW. NO OTHER CONCERNS AT THIS TIME.
[2018-07-04 20:00] VITALS: BP 146/55
--- NOTE | 2018-07-05 05:08 | NUR ---
PT WAS AWAKE AND ALERT DURING SHIFT. ANSWERED YES OR NO QUESTIONS. ABLE TO TAKE MEDICATIONS IN APPLESAUCE, CRUSHED. TOLERATED HONEY THICKEND LIQUIDS. VITALS STABLE. R IJ PATENT. STROKE PRECAUTIONS IN PLACE. FALL PRECAUTIONS IN PLACE. HOURLY ROUNDING COMPLETE. 2 HOUR TURNS COMPLETE.
[2018-07-05 08:15] VITALS: BP 136/56
--- NOTE | 2018-07-05 10:27 | NUR ---
CENTRAL LINE DISCONTINUED DUE TO REDNESS. NO DRAINAGE NOTED. DR. JENNY VELEZ.
--- NOTE | 2018-07-05 11:29 | NUR ---
LATE ENTRY-FOR 07/04 AT 1200-LONG CONVERSATION WITH PT.,SON AND SON'S GIRLFRIEND. EXPLAINED REASONS WHY PT.WOULD NOT QUALIFY FOR INPT.REHAB. SON AND GF SEEM TO UNDERSTAND. REVIEWED LIST OF SNFS THAT CONTRACT WITH HER INSURANCE. THEIR FIRST CHOICE WOULD BE [facility]/2ND CHOICE [facility]. FAXED INFORMATION TO [facility] AND SPOKE WITH HER ON PHONE. SHE WILL MAKE SURE THEY TAKE PT.'S INSURANCE AND REVIEW INFORMATION AND CALL CM BACK.
--- NOTE | 2018-07-05 11:34 | NUR ---
CALLED [facility] THIS AM. SHE DID RECEIVE REFERRAL ON PT. SHE SAID THEY DO ACCEPT PT.'S INSURANCE. SHE IS REVIEWING INFORMATION AND WILL NEED TO REVIEW WITH D.O.N. SHE WILL CALL CM BACK.
--- NOTE | 2018-07-05 13:17 | NUR ---
SPOKE WITH MONIKA IN PHARMACY REGARDING HOME PRADAXA. PER PREVIOUS NURSING NOTE ON 06/29 HOME PRADAXA WAS SENT TO PHARMACY. PHARMACY WILL VERIFY MEDICATION AND DELIVER TO NURSING UNIT FOR HS.
--- NOTE | 2018-07-05 16:42 | NUR ---
PATIENT REMAINS AT BASELINE ORIENTATION. REPOSITIONED EVERY 2 HOURS WITH HEALS ELEVATED. 2 SCARS ON BUTTOCKS. NO OPEN AREAS NOTED. TOLERATING MEALS. HONEY THICKENED WATER PROVIDED DURING HOURLY ROUNDS. LARGE BM DURING BATH THIS AM. PATIENT REFUSED TO STAY UP IN CHAIR AFTER THERAPY. RIGHT IJ REMOVED. BACTROBAN ORDERED FOR SITE. SON PRESENT MOST OF SHIFT. DISCHARGE PLANS ARE FOR PATIENT TO GO TO [facility] TOMORROW PENDING INSURANCE AUTH. SEIZURE PRECAUTIONS IN PLACE. BED ALARM SET. WILL CONTINUE TO MONITOR.
--- NOTE | 2018-07-05 16:47 | NUR ---
[facility] SAID THEY CANNOT ACCEPT PT. THEY FEEL THEY CANNOT MEET HER NEEDS. SECOND CHOICE FOR SNF WAS [facility]. FAXED REFERRAL TO JENNY RICH TO COME VISIT PT. INFORMED SON IN ROOM. [facility] SAID THEY CAN ACCEPT PT.MEDICALLY BUT NEED TO GET INSURANCE AUTHORIZATION.
[2018-07-05 20:00] VITALS: BP 132/49
--- NOTE | 2018-07-06 05:28 | NUR ---
PT WAS ALERT WHEN AWOKE THROUGHOUT SHIFT. ABLE TO ANSWER YES OR NO QUESTIONS. VITALS STABLE. BACTROBAN OINT APPLIED TO IJ REMOVAL SITE. TOOK PILLS CRUSHED IN APPLESAUCE WELL. TOLERATED HONEY THICKENED LIQUIDS. BEDDING CHANGED DURING 0400 TURN AND BARRIER OINT APPLIED TO BOTTOM. PT INCONTINENT. WAITING FOR INSURANCE AUTH FOR TRANSFER TO [facility]. FALL PRECAUTIONS IN PLACE. HOURLY ROUNDING COMPLETE. CALL LIGHT WITHIN REACH. SEIZURE PRECAUSIONS IN PLACE. WILL CONTINUE TO MONITOR.
[2018-07-06 08:30] VITALS: BP 136/59
[2018-07-06] MEDS ORDERED: LANTUS100 UNIT/M SUBQ (09:17)
--- NOTE | 2018-07-06 12:00 | NUR ---
[facility] CALLED AND SAID THEY NOW DO NOT EXPECT A SKILLED BED OPEN UNTIL TUESDAY. DISCUSSED WITH PT'S SON. REVIEWED LIST OF [facility] FACILITIES. HE CHOSE [facility]. FAXED REFERRAL TO [facility] AND SPOKE WITH HER ON PHONE.
[2018-07-06 15:36] VITALS: BP 130/59
--- NOTE | 2018-07-06 16:35 | NUR ---
GAVE PT.'S SON ANOTHER LIST OF FACILITIES THAT CONTRACT WITH INSURANCE. HAVE TRIED THESE FACILITIES:[facility]-THEY ARE OUT OF NETWORK-NO OON BEN. [facility]-OUT OF NETWORK-NO OON BENEFITS [facility]-COULD NOT MEET NEEDS [facility]-NO BED UNTIL TUESDAY [facility]-OUT OF NETWORK-NO OON BENEFITS WILL CONTINUE TO FOLLOW. SON WILL DISCUSS WITH PT.S .
--- NOTE | 2018-07-06 18:45 | NUR ---
PATIENT REMAINED ALERT TO SELF. VITAL SIGNS AND SPO2 STABLE. IV CLEAN, FLUSHING. BLOOD SUGARS WERE ALL OVER THE PLACE. GLIPIZIDE DC'D. SLIDING SCALE GIVEN FOR DINNER. SON AND HELPED FEED PATIENT. SHE TOOK PO MEDS WITHOUT ISSUE. PATIENT INCONTINENT OF BOWEL AND BLADDER. COMPLETED HOURLY ROUNDING. CALL LIGHT WITHIN REACH. WILL CONTINUE TO MONITOR.
[2018-07-06 20:23] VITALS: BP 136/48
[2018-07-07 04:04] VITALS: BP 134/50
--- NOTE | 2018-07-07 05:25 | NUR ---
pt is alert to self. pt was turned every 2 hours alternating between left and right side with wedges. pt linens were changed as needed with incontinence episode. pt swallowed pills with thickend liquids. pt had a bowel movement today. fall risk precautions in place. seizure precautions in place. hourly rounding completed. will continue to monitor.
--- NOTE | 2018-07-07 06:15 | NUR ---
pt got angry during last q2 turn and refused to turn, pt also refused to take morning meds and got angry and yelled at me to leave her alone. meds left for day shift to try and give pt meds. will continue to monitor.
[2018-07-07 08:00] VITALS: BP 129/53
--- NOTE | 2018-07-07 12:51 | NUR ---
Following for d/c planning needs. Reviewed chart and spoke with nurse and pt's son Erik and daughter Terri. According to document in pt's chart, dtr Terri is DPOA, with pt's spouse listed as alternate agent. Erik said he only wants pt to go to [facility] and will not consider any other facility. Called environmental services coordinator at [facility]. They do not have a bed available today and do not anticipate having one until Tuesday. She said they have accepted pt clinically and will seek insurance authorization on Tuesday. Erik adamantly refuses discussing any other facilities listed on insurance website in network for skilled. He said he spoke with someone at the insurance and they are agreeable with pt staying until Tuesday. Spoke with pt's daughter Terri ([phone]). She said she used to work at [facility] and does not want pt to go there on d/c from hospital. Explained that insurance is no longer in network with [facility] inpatient rehab. Terri called back and said that she spoke with Erik and pt's and has now decided she wants pt to go to [facility]. She will not consider other facilities. Will plan on pt going to [facility] on Tuesday.
[2018-07-07 17:03] VITALS: BP 158/69
--- NOTE | 2018-07-07 19:00 | NUR ---
RN REVIEWED AND AGREES WITH STUDENT NURSES CHARTING.
--- NOTE | 2018-07-07 19:03 | NUR ---
ALERT AND ORIENTED X4. NO IV AT THIS TIME. DENIES PAIN AND NAUSEA. ATTENDED PHYSICAL AND OCCUPATIONAL THERAPY THIS SHIFT. Q2T HAVE BEEN MAINTAINED. FAMILY AT BEDSIDE THROUGHOUT SHIFT. VSS ON ROOM AIR. HOURLY ROUNDS HAVE BEEN MAINTAINED THROUGHOUT SHIFT. CALL LIGHT IS WITHIN REACH. NURSING WILL CONTINUE TO MONITOR.
[2018-07-07 21:00] VITALS: BP 130/56
[2018-07-08 04:00] VITALS: BP 150/65
--- NOTE | 2018-07-08 06:20 | NUR ---
PATIENT HAS SLEPT WELL THROUGHOUT THE NIGHT. VSS ON RA. PATIENT REMAINS ON SEIZURE PRECAUTIONS. PATIENT TURNED EVERY 2HRS AND PRN. PATIENT INCONTINENT OF BLADDER AND ESTELA CARE PERFORMED AND BARRIER CREAM APPLIED. PATIENT GIVEN PILLS WITH APPLESAUCE AND HANDLED THEM WELL. FALL PRECAUTIONS IN PLACE AND HOURLY ROUNDS MADE. WILL CONTINUE WITH PLAN OF CARE AND NURSING TO MONITOR.
[2018-07-08 08:40] VITALS: BP 157/65
--- NOTE | 2018-07-08 17:59 | NUR ---
PT REMIANED ALERT AND ORIENTED. PT TURNED Q2 H. SEIZURE PRECAUTIONS IN PLACE. INSULIN GIVEN ORDERED. FALL RISK PRECAUTIONS IN PLACE. HOURLY ROUNDING COMPLETED. WILL CONTINUE TO MONITOR.
[2018-07-08 21:00] VITALS: BP 142/55
--- NOTE | 2018-07-09 05:15 | NUR ---
PT WAS ALERT WHEN AWOKE. VITALS STABLE. THICKENED LIQUIDS TOLERATED. PT AT BEDSIDE UNTIL 2100. ANSWERED YES AND NO QUESTIONS. FALL PRECAUTIONS IN PLACE. SEIZURE PRECAUTIONS IN PLACE. HOURLY ROUNDING COMPLETE. Q2H TURNS DONE. WILL CONTINUE TO MONITOR.
[2018-07-09 08:30] VITALS: BP 148/67
[2018-07-09 16:05] VITALS: BP 118/52
[2018-07-09 20:00] VITALS: BP 122/46
--- NOTE | 2018-07-10 04:58 | NUR ---
PT AWOKE AND WAS ALERT WHEN CALLED BY NAME. TOOK MEDICATIONS WITH A DRINK OF HONEY THICK LIQUID. SLEPT THROUGH MOST OF THE NIGHT. Q2H TURNS COMPLETE. HOURLY ROUNDING COMPLETE. FALL PRECAUTIONS IN PLACE. WILL CONTINUE TO MONITOR.
[2018-07-10 08:00] VITALS: BP 138/59
--- NOTE | 2018-07-10 16:04 | NUR ---
GLOBAL CLIMATE CHANGE RESEARCHER SPOKE TO TANIA WITH [facility] TO DISCUSS THEIR ABILITY TO ACCEPT THE PATIENT AT D/C. TANIA INFORMS THAT SHE WILL NEED UPDATED PT/OT NOTES, AND SHE WILL INITIATE AUTH. D/C BELL PERSON FAXED THE PATIENT'S PT/OT NOTES TO [facility]. D/C BELL PERSON SPOKE TO THE PATIENT'S SPOUSE TO DISCUSS DISCHARGE PLANNING AND D/C TO [facility], AND TO INFORM THAT CM IS AWAITING INSURANCE AUTH. PATIENT'S SPOUSE IN AGREEMENT. D/C BELL PERSON CALLED TO F/U WITH TANIA AT [facility], AND SHE INFORMS THAT AUTH HAS NOT BEEN RECIEVED AT THIS POINT. CM WILL REMAIN AVAILABLE TO ASSIST AND FOLLOW NEEDED.
[2018-07-10 16:31] VITALS: BP 132/63
--- NOTE | 2018-07-10 18:51 | NUR ---
PT ALERT AND ORIENTED. NO IV ACCESS. FLUIDS THICKENED. PT TURNED AND REPOSITIONED Q 2 HOURS. INCONTINENT OF BOWEL AND BLADDER. SEIZURE PRECAUTIONS IN PLACE. HOURLY ROUNDS MAINTAINED. SPOUSE @ BEDSIDE DURING DAY. NURSING TO CONTINUE TO MONITOR.
--- NOTE | 2018-07-11 07:45 | NUR ---
PATIENT HAS SLEPT WELL THROUGHOUT THE NIGHT. VSS ON RA. PATIENT HAS REMAINED ON BEDREST DURING SHIFT. PATIENT TURNED EVERY 2HRS AND PRN. ESTELA CARE PERFORMED. PATIENT IS INCONTINENTT OF BOWEL AND BLADDER. MEDICATIONS GIVEN OERDERED AND CHARTED. FALL PRECAUTIONS IN PLACE AND HOURLY ROUNDS MADE. WILL CONTINUE WITH PLAN OF CARE AND NURSING TO MONITOR.
[2018-07-11 08:00] VITALS: BP 145/69
--- NOTE | 2018-07-11 13:23 | NUR ---
ASSOCIATE PROFESSOR OF HISTORY SPOKE TO TANIA WITH [facility] TO INFORM THAT CM HAD RECEIVED INSURANCE AUTH INFO FOR THE PATIENT AND FAXED THE INFO TO [facility]. TANIA WITH [facility] CONFIRMS RECEIPT OF THE INFO AND SCHEDULED TRANSPORT FOR 1400. D/C PHOTOLETTERING MACHINE OPERATOR FAXED THE PATIENT'S D/C ORDERS TO [facility]. D/C PHOTOLETTERING MACHINE OPERATOR SPOKE TO THE PATIENT'S SPOUSE TO INFORM OF THIS AND HE IS IN AGREEMENT. D/C PHOTOLETTERING MACHINE OPERATOR INFORMED THE RN IN-CHARGE OF THE PATIENT IF THE PATIENT'S TIME OF TRANSPORT AND WHERE TO CALL REPORT. CM WILL REMAIN AVAILABLE TO ASSIST AND FOLLOW NEEDED.
[2018-07-11 13:27] VITALS: BP 169/69
[2018-07-11 14:20] VITALS: BP 169/69
--- NOTE | 2018-07-11 16:05 | NUR ---
PT ALERT AND AWAKE. NO IV ACCESS. INCONTINENT OF URINE. TURNED AND REPOSITIONED Q 2HOURS. PT ABLE TO VERBALIZE AND ANSWERS SIMPLE QUESTIONS. NO VERBALIZATIONS OR FACIAL GRIMACING OF PAIN. HOURLY ROUNDS MAINTAINED. REPORT CALLED TO DIGNA @ [facility] @ 1300. PT LEFT UNIT BY WHEEL CHAIR VAN WITH TRANSPORTER AND BELONGINGS WITH DISCHARGE INSTRUCTION AND ENVELOPE WITH PRESCRIPTIONS @ 6469.
--- NOTE | 2018-07-13 15:15 | 2DMMODE ---
[place] [address] 2 D/M-MODE ECHOCARDIOGRAM Name: ESSENCERICK MONTIEL Room: [address] IN [facility]#: [id number] Admission: 06/21/18 Attend Phys: Adrian Lainez Discharge: 07/11/18 Date of : 47 Date of Service: 06/28/18 1716 Report #: [id number] THIS REPORT FOR: //name// APPROVED REPORT Study performed: 06/28/2018 16:07:06 EXAM: Comprehensive 2D, Doppler, and color-flow Echocardiogram Patient Location: In-Patient Room #: 001 Status: routine BSA: 1.78 HR: 61 bpm BP: 142/55 mmHg Rhythm: NSR Other Information Study Quality: Good Indications junctional rhythm, AMS, seizure 2D Dimensions IVSd: 9.69 (7-11mm) LVOT Diam: 20.12 (18-24mm) LVDd: 43.07 mm PWd: 8.05 (7-11mm) Ascending Ao: 35.39 (22-36mm) LVDs: 18.42 (25-40mm) Aortic Root: 30.09 mm Volumes Left Atrial Volume (Systole) LA ESV Index: 30.20 mL/m2 Aortic Valve AoV Peak Timothy.: 1.49 m/s AO Peak Gr.: 8.89 mmHg LVOT Max P.06 mmHg AO Mean Gr.: 5.00 mmHg LVOT Mean P.08 mmHg LVOT Max V: 1.01 m/s AO V2 VTI: 38.66 cm LVOT Mean V: 0.67 m/s MARIA ALEJANDRA (VTI): 2.11 cm2 LVOT V1 VTI: 25.66 cm Mitral Valve MV Mean Gr.: 3.60 mmHg E/A Ratio: 0.94 MV Decel. Time: 286.55 ms MV E Max Timothy.: 1.04 m/s MV PHT: 83.10 [place] [address] 2 D/M-MODE ECHOCARDIOGRAM Name: RICK HEREDIA Room: [address]#: [id number] Admission: 06/21/18 Attend Phys: Adrian Lainez Discharge: 07/11/18 Date of : 47 Date of Service: 06/28/18 1716 Report #: [id number] MVA (PHT): 2.65 cm2 TDI E/Lateral E': 13.00 E/Medial E': 13.00 Medial E' Timothy.: 0.08 m/s Lateral E' Timothy.: 0.08 m/s Pulmonary Valve PV Peak Timothy.: 0.99 m/s PV Peak Gr.: 3.94 mmHg Left Ventricle The left ventricle is normal size. There is normal LV segmental wall motion. There is normal left ventricular wall thickness. Left ventricular systolic function is normal. The left ventricular ejection fraction is within the normal range. LVEF is 60-65%. The left ventricular diastolic function is normal. Right Ventricle The right ventricle is normal size. The right ventricular systolic function is normal. Atria The left atrium size is normal. The right atrium size is normal. Aortic Valve Mild aortic valve sclerosis. No aortic regurgitation is present. There is no aortic valvular stenosis. Mitral Valve There is mitral annular calcification. Trace mitral regurgitation. No evidence of mitral valve stenosis. Tricuspid Valve The tricuspid valve is normal in structure. There is no tricuspid valve regurgitation noted. Pulmonic Valve The pulmonary valve is normal in structure. There is no pulmonic valvular [place] [address] 2 D/M-MODE ECHOCARDIOGRAM Name: RICK HEREDIA Room: [address] [place] [facility]#: [id number] Admission: 06/21/18 Attend Phys: Adrian Lainez Discharge: 07/11/18 Date of : 47 Date of Service: 06/28/18 1716 Report #: [id number] The aortic root is normal in size. IVC is normal in size and collapses >50% with inspiration. Pericardium There is no pericardial effusion. <Conclusion> The left ventricle is normal size. There is normal left ventricular wall thickness. Left ventricular systolic function is normal. The left ventricular ejection fraction is within the normal range. LVEF is 60-65%. The right ventricle is normal size. The left atrium size is normal. Mild aortic valve sclerosis. No aortic regurgitation is present. There is no aortic valvular stenosis. There is mitral annular calcification. Trace mitral regurgitation. No evidence of mitral valve stenosis. The tricuspid valve is normal in structure. IVC is normal in size and collapses >50% with inspiration. There is no pericardial effusion. There is normal LV segmental wall motion. <ELECTRONICALLY SIGNED> By: Jez Chiu MD, FACC 06/28/18 171 15 15 Jez Chiu MD, FACC /INF
--- NOTE | 2018-07-14 11:22 | CON ---
[address] [address] CONSULTATION Name: YANRICK Room: [address] IN M.R.#: [id number] Admission: 06/21/18 Attend Phys: Roosevelt Brooke Discharge: 07/11/18 Date of : 47 Report #: [id number] THIS REPORT FOR: //name// CC: Jeff Lainez HISTORY OF PRESENT ILLNESS: This is a pleasant 73-year-old female with past medical history significant for hyperlipidemia, stroke, hypertension, type 2 diabetes and seizure disorder, who was admitted to the hospital 5 days back with altered mental status following stroke/status epilepticus. The GI service has been consulted for evaluation of iron deficiency anemia. The patient is currently sedated and intubated and history therefore has been obtained from reviewing the chart and speaking with the patient's who is at her bedside. During the course of the hospitalization, the patient has not had any hematemesis or hematochezia or melena. The patient's denies any prior episodes of hematemesis or hematochezia. The patient's also reports that she had a colonoscopy, but is unsure of the results of this test. The patient was not diagnosed with iron deficiency anemia in the past per her . PAST MEDICAL HISTORY: As mentioned above, the patient has a past medical history significant for hypertension, hyperlipidemia, stroke, seizure disorder, type 2 diabetes. PAST SURGICAL HISTORY: The patient has past surgical history of hemorrhoidectomy. FAMILY HISTORY: No significant family history. SOCIAL HISTORY: The patient's reports that she never smoked tobacco or recreational drugs and never used alcohol. REVIEW OF SYSTEMS: Unable to obtain due to patient's mental status. PHYSICAL EXAMINATION: VITAL SIGNS: Temperature 37.6, pulse rate 60, blood pressure is 120/52, pulse ox 99% on vent, respirations 12. GENERAL: The patient is sedated and intubated. Occasionally moves limbs, but there is no spontaneous movement. LUNGS: Clear to auscultation bilaterally. CARDIOVASCULAR: Rate and rhythm regular, S1, S2 present. ABDOMEN: Soft. There is no distention, guarding or rigidity. EXTREMITIES: Warm, well perfused. There is no pedal edema. SKIN: Warm and dry. There is no icterus. LABORATORY DATA: Hemoglobin 7.5, hematocrit 23.0, platelet count 226, WBC count 10.8. Sodium 141, potassium 3.4, chloride 108, bicarbonate 22, BUN 15, [place] [address] CONSULTATION Name: RICK HEREDIA Room: [address]#: [id number] Admission: 06/21/18 Attend Phys: Roosevelt Brooke Discharge: 07/11/18 Date of : 47 Report #: [id number] creatinine 1.2, serum iron 9, percent saturation 3, TIBC 334. Ferritin 64. ASSESSMENT AND PLAN: A 73-year-old female who presented with status epilepticus/stroke and continues to remain sedated, intubated at this time. The gastrointestinal service has been consulted for evaluation of iron deficiency anemia. There is no evidence of ongoing gastrointestinal bleeding at this time. Per the patient's , she may have had a colonoscopy in the past, but is unsure of the results of this test. We will obtain records from her primary care provider about the results of her last colonoscopy. I would defer endoscopic evaluation to a time when the patient is more stable and extubated. I discussed the benefits and risks of endoscopic evaluation at this time with the patient's . The patient can be placed on iron replacement therapy at the time of discharge. Thirty minutes were spent reviewing the patient's chart and medical records, performing physical examination, and obtaining history from the patient's . The patient was seen and examined in the ICU. <ELECTRONICALLY SIGNED> By: Vincent Shaikh MD 07/14/18 1122 1353 [id number] Shaikh MD /nt
== END 2018-07-11 14:20 | DRG 207 ==
LOC: M.ERS 18:26 → M.TBA-ER 21:16 → M.ICU 21:16 → M.2W 06-29 16:18 → M.ORTHSURG 07-02 18:46
PROVIDERS: Internal Medicine; Internal Medicine Pulmonary Disease; Personal Emergency Response Attendant; Specialist; ADMIT Internal Medicine
PROC: 0BH17EZ Insertion of Endotracheal Airway into Trachea, Via Natural or Artificial Opening (ICD-10-PCS; principal; 2018-06-21)
PROC: 5A1955Z Respiratory Ventilation, Greater than 96 Consecutive Hours (ICD-10-PCS; principal; 2018-06-21)
PROC: B548ZZA Ultrasonography of Superior Vena Cava, Guidance (ICD-10-PCS; principal; 2018-06-21)
PROC: 02HV33Z Insertion of Infusion Device into Superior Vena Cava, Percutaneous Approach (ICD-10-PCS; principal; 2018-06-21)
PROC: 0D9670Z Drainage of Stomach with Drainage Device, Via Natural or Artificial Opening (ICD-10-PCS; principal; 2018-06-21)
DX: J96.01 Acute respiratory failure with hypoxia (principal); J69.0 Pneumonitis due to inhalation of food and vomit; R65.11 Systemic inflammatory response syndrome (SIRS) of non-infectious origin with acute organ dysfunction; G93.41 Metabolic encephalopathy; N17.0 Acute kidney failure with tubular necrosis; N18.4 Chronic kidney disease, stage 4 (severe); D68.59 Other primary thrombophilia; R47.01 Aphasia; G40.901 Epilepsy, unspecified, not intractable, with status epilepticus; E78.5 Hyperlipidemia, unspecified; E78.00 Pure hypercholesterolemia, unspecified; R13.10 Dysphagia, unspecified; R00.1 Bradycardia, unspecified; E07.9 Disorder of thyroid, unspecified; F32.9 Major depressive disorder, single episode, unspecified; D64.9 Anemia, unspecified; E03.9 Hypothyroidism, unspecified; E11.22 Type 2 diabetes mellitus with diabetic chronic kidney disease; I12.9 Hypertensive chronic kidney disease with stage 1 through stage 4 chronic kidney disease, or unspecified chronic kidney disease; K44.9 Diaphragmatic hernia without obstruction or gangrene; Z79.84 Long term (current) use of oral hypoglycemic drugs; Z79.82 Long term (current) use of aspirin; Z88.2 Allergy status to sulfonamides; Z88.0 Allergy status to penicillin; Z88.8 Allergy status to other drugs, medicaments and biological substances; Z91.041 Radiographic dye allergy status; Z91.048 Other nonmedicinal substance allergy status; I69.920 Aphasia following unspecified cerebrovascular disease

== ENCOUNTER 2018-07-19 13:17 | Inpatient (IN) | payer OTHER ==
[~2018-07-19] VITALS: Ht 167.6 cm; Wt 69.1 kg
[~2018-07-19 13:17] MED LIST changes: +ACIDOPHILUS1 EAC4 PO; +ALBUTEROL2.5 MG/0.5 INH; +B12INJ SUBQ; +CEFDINIR300 MG PO; +KEPPRA750 MG PO; +LANTUS100 UNIT/M SUBQ; +NYSTATIN100000 UNI SW&SWALLOW; +PREDNISONE 10 M10 M1 PO; +SYNTHROID50 MCG PO
[2018-07-19 13:22] VITALS: BP 151/61
[2018-07-19 13:49] LABS: MCH 25.2 pg (26.0-34.0); MCHC 31.3 g/dL (28.0-37.0); MCV 80.4 fL (80.0-100.0); MPV 9.4 fl. (7.2-11.1); NUCLEATED RBCS 0 /100WBC; PLATELET COUNT* 271 thou/uL (150-400); RBC 3.98 mil/uL (4.20-5.00); RDW-CV 16.4 % (10.5-14.5); WBC 13.1 thou/uL (4.0-11.0)
[2018-07-19 13:58] LABS: ANION GAP 5 mmol/L (7-16); BUN 27 mg/dL (7-18); CALCIUM 8.9 mg/dL (8.5-10.1); CHLORIDE 102 mmol/L (98-107); CO2 28 mmol/L (21-32); CREATININE 1.7 mg/dL (0.6-1.3); GLUCOSE 343 mg/dL (70-99); POTASSIUM 4.8 mmol/L (3.5-5.1); SODIUM 135 mmol/L (136-145)
[2018-07-19 14:09] LABS: ALBUMIN 2.9 g/dL (3.4-5.0); ALKALINE PHOSPHATASE 73 U/L (46-116); NT-PRO BRAIN NAT PEPTIDE 425 pg/mL (<300); SGOT 15 U/L (15-37); SGPT 24 U/L (30-65); TOTAL BILIRUBIN 0.2 mg/dL (<0.1-1.0); TOTAL PROTEIN 6.4 g/dL (6.4-8.2); TROPONIN-I LEVEL <0.06 ng/mL (<0.06)
[2018-07-19] MEDS ORDERED: FISH OIL 1,001000 M2 PO (14:11)
[2018-07-19] MEDS ORDERED: BISACODYL SUPP10 MG RECTAL (14:14)
[2018-07-19] MEDS ORDERED: TYLENOL325 MG PO (14:15)
[2018-07-19] MEDS ORDERED: MILK OF MA2400 MG/10 PO (14:15)
[2018-07-19 14:46] LABS: ABSOLUTE LYMPHOCYTES 1.8 thou/uL (0.8-5.3); ABSOLUTE MONOCYTES 0.3 thou/uL (0.0-1.2)
[2018-07-19 14:51] LABS: PLATELET ESTIMATE ADEQUATE
[2018-07-19 14:52] LABS: BURR CELLS 1+; HYPOCHROMASIA 3+
[2018-07-19 14:53] LABS: OVALOCYTES 1+; POIKILOCYTOSIS 1+; SCHISTOCYTES Occasional
--- NOTE | 2018-07-19 15:02 | EKG ---
[place] [address] ELECTROCARDIOGRAM REPORT Name: RICK HEREDIA Room: [facility]#: [id number] Admission: 07/19/18 Attend Phys: Discharge: Date of : 47 Report #: [id number] THIS REPORT FOR: //name// [facility] ED Test Date: 2018-07-19 Test Time: 13:28:55 Pat Name: RICK HEREDIA Department: Room: Gender: F Coat Joiner Lockstitch: TON : 1945 Requested By: Hector Rico Order Number: [id number] MD: Steve Salgado Measurements Intervals [place] Rate: 75 P: 37 NE: 189 QRS: -1 QRSD: 88 T: 23 QT: 412 QTc: 461 Interpretive Statements Sinus rhythm previous anterior infarction Baseline wander in lead(s) II,III,aVR,aVL,aVF,V1,V2,V3,V4,V6 Compared to ECG 06/28/2018 15:03:57 rate increased Electronically Signed On 07-19-2018 15:02:21 ENCODING CLERK by Steve Salgado [email or web address] <ELECTRONICALLY SIGNED> By: Steve Salgado MD, FAC 07/19/18 1502 1328 1328 Steve Salgado MD, [facility] /EPI
[2018-07-19 16:29] VITALS: BP 134/60
[2018-07-19 17:29] VITALS: BP 136/64
[2018-07-19] MEDS ORDERED: ALBUTEROL2.5 MG/31 INH (18:40)
[2018-07-19 20:00] VITALS: BP 139/54
[2018-07-20 00:06] VITALS: BP 120/51
[2018-07-20 04:00] VITALS: BP 143/66
[2018-07-20 04:54] LABS: ABSOLUTE BASOPHILS 0.1 thou/uL (0.0-0.2); ABSOLUTE EOSINOPHILS 0.3 thou/uL (0.0-0.7); ABSOLUTE LYMPHOCYTES 3.9 thou/uL (0.8-5.3); ABSOLUTE MONOCYTES 0.7 thou/uL (0.0-1.2); ABSOLUTE NEUTROPHILS 7.8 thou/uL (1.6-8.1); BASOPHILS 0.5 %; EOSINOPHILS 2.1 %; HEMATOCRIT 31.6 % (37.0-47.0); HEMOGLOBIN 10.1 gm/dL (12.0-15.0); LYMPHOCYTES 30.7 %; MCH 25.4 pg (26.0-34.0); MCHC 31.9 g/dL (28.0-37.0); MCV 79.5 fL (80.0-100.0); MONOCYTES 5.3 %; MPV 8.9 fl. (7.2-11.1); NUCLEATED RBCS 0 /100WBC; PLATELET COUNT* 238 thou/uL (150-400); POLYS 61.4 %; RBC 3.98 mil/uL (4.20-5.00); RDW-CV 16.3 % (10.5-14.5); WBC 12.7 thou/uL (4.0-11.0)
[2018-07-20 05:03] LABS: CREATININE 1.2 mg/dL (0.6-1.3)
[2018-07-20 05:09] LABS: POTASSIUM 3.7 mmol/L (3.5-5.1)
[2018-07-20 07:50] VITALS: BP 167/77
[2018-07-20 11:36] LABS: URINE BILIRUBIN NEGATIVE (Negative); URINE BLOOD TRACE (Negative); URINE CLARITY CLEAR; URINE COLOR YELLOW; URINE GLUCOSE-RANDOM NEGATIVE (Negative); URINE KETONES NEGATIVE (Negative); URINE LEUKOCYTES-REFLEX NEGATIVE (Negative); URINE NITRITE-REFLEX NEGATIVE (Negative); URINE PROTEIN NEGATIVE (Negative); URINE UROBILINOGEN 0.2 E.U./dl (0.2-1.0)
[2018-07-20 12:18] VITALS: BP 173/76
[2018-07-20 16:00] VITALS: BP 151/73
[2018-07-20 20:00] VITALS: BP 142/47
[2018-07-21] VITALS: BP 150/68
[2018-07-21 04:30] VITALS: BP 154/66
[2018-07-21 04:48] LABS: ABSOLUTE EOSINOPHILS 0.3 thou/uL (0.0-0.7); ABSOLUTE LYMPHOCYTES 3.4 thou/uL (0.8-5.3); ABSOLUTE MONOCYTES 0.6 thou/uL (0.0-1.2); ABSOLUTE NEUTROPHILS 5.2 thou/uL (1.6-8.1); BASOPHILS 0.4 %; HEMATOCRIT 30.3 % (37.0-47.0); HEMOGLOBIN 9.8 gm/dL (12.0-15.0); LYMPHOCYTES 35.4 %; MCH 25.6 pg (26.0-34.0); MCHC 32.4 g/dL (28.0-37.0); MCV 78.9 fL (80.0-100.0); MONOCYTES 6.6 %; MPV 8.5 fl. (7.2-11.1); NUCLEATED RBCS 0 /100WBC; PLATELET COUNT* 237 thou/uL (150-400); POLYS 54.6 %; RBC 3.84 mil/uL (4.20-5.00); RDW-CV 16.5 % (10.5-14.5); WBC 9.5 thou/uL (4.0-11.0)
[2018-07-21 05:12] LABS: CALCIUM 8.5 mg/dL (8.5-10.1); CREATININE 1.2 mg/dL (0.6-1.3); POTASSIUM 3.9 mmol/L (3.5-5.1)
[2018-07-21 08:00] VITALS: BP 148/60
[2018-07-21 12:07] VITALS: BP 144/55
[2018-07-21 14:00] VITALS: BP 147/93
[2018-07-21 20:00] VITALS: BP 140/65
[2018-07-22 00:09] VITALS: BP 147/59
[2018-07-22 04:10] VITALS: BP 151/53
[2018-07-22 08:35] VITALS: BP 153/54
[2018-07-22 12:00] VITALS: BP 156/65
[2018-07-22 16:00] VITALS: BP 155/75
[2018-07-22 20:00] VITALS: BP 151/69
[2018-07-23] VITALS: BP 144/58
[2018-07-23 04:00] VITALS: BP 151/69
[2018-07-23 08:25] VITALS: BP 148/69
[2018-07-23 12:00] VITALS: BP 153/60
[2018-07-23 16:00] VITALS: BP 147/85
[2018-07-23 19:05] VITALS: BP 155/75
[2018-07-24 00:10] VITALS: BP 115/74
[2018-07-24 03:28] VITALS: BP 140/60
[2018-07-24 08:30] VITALS: BP 143/70
[2018-07-24 12:33] VITALS: BP 149/73
[2018-07-24 16:56] VITALS: BP 129/56
[2018-07-24 19:05] VITALS: BP 144/63
[2018-07-25] VITALS: BP 147/62
[2018-07-25 04:00] VITALS: BP 132/56
[2018-07-25 08:30] VITALS: BP 129/82
[2018-07-25 11:06] VITALS: BP 129/82
[2018-07-25 12:12] VITALS: BP 115/65
--- NOTE | 2018-07-31 09:53 | CON ---
[address] [address] CONSULTATION Name: ESSENCETIANARICK Room: [address] IN M.R.#: [id number] Admission: 07/19/18 Attend Phys: Roosevelt Brooke Discharge: 07/25/18 Date of : 47 Report #: [id number] THIS REPORT FOR: //name// CC: Jeff Lainez DATE OF SERVICE: 07/20/2018 HISTORY OF PRESENT ILLNESS: This is a 73-year-old female patient who was evaluated by me for the possibility of seizure. The patient is well known to me from multiple admissions in the past and those notes are summarized in my prior notes. The patient was at [facility]. She had some altered mental status at the lunch. She had what he described as intractable hiccup, drooling from the mouth, some shakiness and going in and out of trance. So it is difficult to say whether they were seizures or not, but presumptively can be. REVIEW OF SYSTEMS: Positive for multiple episodes of altered mental status. She has a baseline severe aphasia and right hemiplegia because of a massive stroke. We tried to increase her Keppra last time, but the patient became pretty drowsy and the family did not like that. She also developed frequent encephalopathy and had episode, which may very well be seizure, but difficult to tell for sure. She has a history of diabetes, multiple CVA, hemorrhoid surgery, hypertension, high cholesterol. This was her relevant 14-point review of system. PAST MEDICAL HISTORY: Positive for strokes. FAMILY HISTORY: Unremarkable. SOCIAL HISTORY: She has a supportive family. She lives in [place]. PHYSICAL EXAMINATION: Pretty limited. She opens her eyes. She does follow commands sometimes, she is otherwise aphasic. She is right hemiplegic. She cannot cooperate with the sensory examination. Tone is asymmetrical and so is reflexes as expected with the prior stroke. She could not cooperate with the fundus examination. She is moderately built individual who does not have any dysmorphic features of eyes, ears and face. She is not in any respiratory difficulty. Blood pressure is 173/76, respirations 16, pulse is 68, temperature is 99.3. LABORATORY DATA: Indicate white count is increased at 12.7 and hemoglobin is diminished. She did not have a CT and MRI, which showed no acute changes. She had multiple studies in the past, which did not show any acute changes either. IMPRESSION: Possible but not definite seizure. It [place] [address] CONSULTATION Name: RICK HEREDIA Room: [address] IN ..#: [id number] Admission: 07/19/18 Attend Phys: Roosevelt Brooke Discharge: 07/25/18 Date of : 47 Report #: [id number] this patient who has such an extensive damage to the brain because of multiple strokes in the past. RECOMMENDATION: 1. Management is very difficult in this patient. I will do some more blood workup in this patient and I discussed multiple anticonvulsants with the family. I will go ahead and add Lamictal, that dose needs to be gradually increased as an outpatient. 2. Few more blood testing. 3. We will check an EEG. 4. I will add Lamictal. I discussed the indication, potential complication, and alternatives and the family is okay to proceed with that. Unfortunately, there is limited thing which can be done about this patient. <ELECTRONICALLY SIGNED> By: Dashawn Rivera MD 07/31/18 0953 1223 [id number] Rivera MD /nt
--- NOTE | 2018-07-31 09:53 | EEG ---
[facility] [address] [place] [address] EEG STUDY REPORT Name: RICK HEREDIA Room: [address] IN M.R.#: [id number] Admission: 07/19/18 Attend Phys: Roosevelt Brooke Discharge: 07/25/18 Date of : 47 Report #: [id number] THIS REPORT FOR: //name// CC: Jeff Lainez DATE OF SERVICE: 07/20/2018 This patient had an episode of seizure-like activity. EEG is being done to further evaluate that. EEG was done by placing the electrode by standard 10-20 system of electrode placement. Both referential and sequential montages were used for recording. Background activity in this patient's EEG is about 6 Hz and 30 microvolts. It is pretty slow on the left side. The patient became drowsy that is associated with bilateral slowing and vertex sharp waves. Photic stimulation is unremarkable. No active epileptiform activity was noticed. IMPRESSION: This patient's EEG is slow on both sides. That is a nonspecific abnormality, which can occur with encephalopathy, dementia, effect of psychotropic medication. He does not show any active epileptiform activity. It is slow. It is even slower on the left side, which will be consistent with a prior history of stroke. Thank you very much for this referral. <ELECTRONICALLY SIGNED> By: Dashawn Rivera MD 07/31/18 0953 1740 1750MD jer Olson
== END 2018-07-25 13:40 | DRG 70 ==
LOC: M.ERS 13:17 → M.TBA-ER 15:18 → M.2W 15:18
PROVIDERS: Emergency Medicine Emergency Medical Services; ADMIT Internal Medicine
DX: G93.41 Metabolic encephalopathy (principal); N17.0 Acute kidney failure with tubular necrosis; E87.1 Hypo-osmolality and hyponatremia; I69.351 Hemiplegia and hemiparesis following cerebral infarction affecting right dominant side; I10 Essential (primary) hypertension; E78.00 Pure hypercholesterolemia, unspecified; F03.90 Unspecified dementia, unspecified severity, without behavioral disturbance, psychotic disturbance, mood disturbance, and anxiety; K44.9 Diaphragmatic hernia without obstruction or gangrene; R32 Unspecified urinary incontinence; E78.5 Hyperlipidemia, unspecified; E11.65 Type 2 diabetes mellitus with hyperglycemia; Z79.4 Long term (current) use of insulin; Z79.899 Other long term (current) drug therapy; Z79.82 Long term (current) use of aspirin; Z91.041 Radiographic dye allergy status; Z88.0 Allergy status to penicillin; Z88.2 Allergy status to sulfonamides; Z88.8 Allergy status to other drugs, medicaments and biological substances; Z91.048 Other nonmedicinal substance allergy status

== ENCOUNTER 2019-06-19 21:52 | Emergency (ER) | payer OTHER ==
[~2019-06-19] VITALS: Wt 71.4 kg
[~2019-06-19 21:52] MED LIST changes: +ALBUTEROL2.5 MG/31 INH; +BISACODYL SUPP10 MG RECTAL; +FISH OIL 1,001000 M2 PO; +MILK OF MA2400 MG/10 PO
[2019-06-19 22:27] LABS: ABSOLUTE BASOPHILS 0.3 thou/uL (0.0-0.2); ABSOLUTE EOSINOPHILS 0.2 thou/uL (0.0-0.7); ABSOLUTE LYMPHOCYTES 3.5 thou/uL (0.8-5.3); ABSOLUTE MONOCYTES 1.1 thou/uL (0.0-1.2); ABSOLUTE NEUTROPHILS 14.9 thou/uL (1.6-8.1); BASOPHILS 1.4 %; HEMATOCRIT 26.8 % (37.0-47.0); HEMOGLOBIN 8.6 gm/dL (12.0-15.0); LYMPHOCYTES 17.3 %; MCH 24.7 pg (26.0-34.0); MCHC 32.2 g/dL (28.0-37.0); MCV 76.9 fL (80.0-100.0); MONOCYTES 5.7 %; MPV 9.3 fl. (7.2-11.1); NUCLEATED RBCS 0 /100WBC; PLATELET COUNT* 373 thou/uL (150-400); POLYS 74.6 %; RBC 3.49 mil/uL (4.20-5.00); RDW-CV 19.2 % (10.5-14.5); WBC 19.9 thou/uL (4.0-11.0)
[2019-06-19 22:36] LABS: APTT 23.6 Seconds (25.0-31.3); PROTIME 9.9 Seconds (9.20-11.50)
[2019-06-19 22:46] LABS: CALCIUM 8.7 mg/dL (8.5-10.1); CREATININE 1.5 mg/dL (0.6-1.3); POTASSIUM 4.4 mmol/L (3.5-5.1)
[2019-06-19 23:08] LABS: ALBUMIN 3.3 g/dL (3.4-5.0); CK-MB MASS 0.8 ng/mL (<0.5-3.6); TOTAL BILIRUBIN 0.1 mg/dL (<0.1-1.0); TOTAL PROTEIN 6.9 g/dL (6.4-8.2)
[2019-06-19 23:40] VITALS: BP 147/70
--- NOTE | 2019-06-21 12:27 | EKG ---
[place] [address] ELECTROCARDIOGRAM REPORT Name: RICK HEREDIA Room: [facility]#: [id number] Admission: 06/19/19 Attend Phys: Discharge: 06/19/19 Date of : 47 Report #: [id number] THIS REPORT FOR: //name// [facility] ED Test Date: 2019-06-19 Test Time: 22:00:45 Pat Name: RICK HEREDIA Department: Room: Gender: F Burrer Machine: AZUCENA : 1945 Requested By: Brannon Sparrow Order Number: [id number] MD: Jez Chiu Measurements Intervals [place] Rate: 88 P: 11 [place]: 250 QRS: -6 QRSD: 91 T: 15 QT: 404 QTc: 489 Interpretive Statements Sinus rhythm Prolonged [place] interval Low voltage, precordial leads Consider anterior infarct Compared to ECG 07/19/2018 13:28:55 First degree AV block now present Low QRS voltage now present Myocardial infarct finding still present Electronically Signed On 06-21-2019 12:26:24 DIE CUTTING MACHINE OPERATOR by Jez Chiu [email or web address] <ELECTRONICALLY SIGNED> By: Jez Chiu MD, FAC 06/21/19 1226 99 99 Jez Chiu MD, [facility] /EPI
== END 2019-06-19 23:40 | disposition short-term general hospital (02) ==
LOC: M.ERS 21:52
PROVIDERS: Family Medicine
DX: I61.5 Nontraumatic intracerebral hemorrhage, intraventricular (principal); I10 Essential (primary) hypertension; E11.9 Type 2 diabetes mellitus without complications; E78.00 Pure hypercholesterolemia, unspecified; Z90.89 Acquired absence of other organs; Z86.73 Personal history of transient ischemic attack (TIA), and cerebral infarction without residual deficits; Z79.4 Long term (current) use of insulin; Z88.2 Allergy status to sulfonamides; Z88.0 Allergy status to penicillin; Z91.041 Radiographic dye allergy status